=== PATIENT | female | born 1955 | race African-American/Black ===

== ENCOUNTER 2017-03-20 07:15 | Inpatient (IN) | payer BC ==
[2017-03-20] MEDS ORDERED: NORMAL SALINE 1000 ML 1,000 ML IV ONE (08:02)
[2017-03-20] MEDS ORDERED: ONDANSETRON HCL INJ/PF 4 MG/2 ML SDV IV ONE ×2 (08:03→13:21)
[2017-03-20] MEDS ORDERED: KETOROLAC TROMETHAMINE INJ/PF 30 MG/1 ML SDV IV ONE ×2 (08:03→13:20)
--- NOTE | 2017-03-20 08:04 | ER Document Report ---
ED General - General Chief Complaint: Vomiting Stated Complaint: VOMITING Time Seen by Provider: 03/20/17 07:34 Mode of Arrival: Ambulatory Information source: Patient Notes: Patient presents emergency department with complaints of abdominal pain since last night. Reports started after she ate. She reports she has been vomiting since 9:00 last night. Denies fever diarrhea. Reports severe epigastric abdominal pain. She reports she feels severely bloated. Reports last bowel movement was yesterday normal. Patient is constantly burping. Denies history of this abdominal pain. Has hx of appy/lorraine, DM. TRAVEL OUTSIDE OF THE [place] IN LAST 30 DAYS: No COUNTRY TRAVELED TO/FROM: [facility] Onset: Yesterday Onset/Duration: Sudden, Persistent Quality of pain: Fullness, Sharp Severity: Severe Pain Level: 5 Associated symptoms: Nausea, Vomiting, Other - burping Exacerbated by: Denies Relieved by: Denies Similar symptoms previously: No Recently seen / treated by doctor: No - Related Data Allergies/Adverse Reactions: Penicillins Adverse Reaction (Intermediate, Verified 03/20/17 07:16) rash Past Medical History - General Information source: Patient - Social History Smoking Status: Never Smoker Frequency of alcohol use: None Drug Abuse: None Family History: Reviewed & Not Pertinent Patient has suicidal ideation: No Patient has homicidal ideation: No - Past Medical History Cardiac Medical History: Reports: Hx Hypertension Denies: Hx Coronary Artery Disease, Hx Heart Attack Pulmonary Medical History: Denies: Hx Asthma, Hx Bronchitis, Hx COPD, Hx Pneumonia Neurological Medical History: Denies: Hx Cerebrovascular Accident, Hx Seizures Endocrine Medical History: Reports: Hx Diabetes Mellitus Type 2 Renal/ Medical History: Denies: Hx Peritoneal Dialysis Musculoskeltal Medical History: Denies Hx Arthritis Past Surgical History: Reports: Hx Appendectomy, Hx Cholecystectomy, Hx Hysterectomy. Denies: Hx Pacemaker - Immunizations Hx Diphtheria, Pertussis, Tetanus Vaccination: Yes Hx Pneumococcal Vaccination: 08/29/14 Physical Exam - Vital signs Vitals: Temp Pulse Resp BP Pulse Ox 98.6 F 77 19 178/74 H 96 03/20/17 07:25 03/20/17 07:25 03/20/17 07:25 03/20/17 07:25 03/20/17 07:25 Course - Re-evaluation Re-evalutation: 03/20/17 09:10 Feeling better, reports abdominal pain decreased, no further vomiting, burping decreased 03/20/17 10:10 Before contacting the surgeon , I consulted dr munoz regarding sm bowel obstruction. She agrees with consult. I consulted dr barboza regarding sm. bowel obstruction. He is requesting a CT with oral contrast in 3 hours. He declined NGT at this time. I did discuss this with Dr. George. I called Dr. barboza back again asking him to come see the patient. He declines, he did speak with Dr. Munoz and again asked for a small CT with oral contrast before he will come and see the patient. Patient was instructed on this further exam. Patient is comfortable reports abdominal pain is tolerable no further vomiting. Pt checked on frequently while waiting for oral contrast. Treated with zofran and 15mg of toradol for pain, reports relief of pain after this. 03/20/17 14:24 CT with oral contrast completed notes still having small bowel obstruction. Dr. Barboza notified and reports he will be over see the patient. - Vital Signs Vital signs: Temp Pulse Resp BP Pulse Ox 98.6 F 78 18 187/93 H 96 03/20/17 16:12 03/20/17 16:12 03/20/17 11:53 03/20/17 16:12 03/20/17 16:12 - Laboratory Result Diagrams: 03/20/17 08:29 03/20/17 08:29 Laboratory results interpreted by me: 03/20/17 03/20/17 03/20/17 08:29 08:29 08:35 WBC 13.9 H RBC 5.46 H MCV 75 L MCH 24.0 L RDW 16.7 H Seg Neutrophils % 86.1 H Lymphocytes % 8.2 L Absolute Neutrophils 11.9 H Potassium 3.3 L Glucose 202 H Urine Protein 100 H Urine Urobilinogen 4.0 H - Diagnostic Test Radiology reviewed: Image reviewed, Reports reviewed - EXAM DESCRIPTION: CT ABD/ PELVIS WITH IV ONLY COMPLETED DATE/TIME: 03/20/2017 9:25 am REASON FOR STUDY : abd pain COMPARISON: None. TECHNIQUE: CT scan of the abdomen and pelvis performed using helical scanning technique with dynamic intravenous contrast injection. No oral contrast. Images reviewed with lung, soft tissue, and bone windows. Reconstructed coronal and sagittal MPR images reviewed. Delayed images for evaluation of the urinary system also acquired. All images stored on PACS. All CT scanners at this facility use dose modulation, iterative reconstruction , and/or weight based dosing when appropriate to reduce radiation dose to as low as reasonably achievable (ALARA). [facility]: Dose Right [facility]: CareDose [facility]: Dose Right [facility]: Teradose 4D [facility]: [employer] [place] CONTRAST TYPE AND DOSE: contrast/concentration: Isovue 370.00 mg/ml; Total Contrast Delivered: 100.0 ml ; Total Saline Delivered: 72.1 ml RENAL FUNCTION: GFR > 60. RADIATION DOSE: CT Rad equipment meets quality standard of care and radiation dose reduction techniques were employed. CTDIvol: 20.5 - 21.1 mGy. DLP: 2283 mGy-cm.. LIMITATIONS: None. FINDINGS: LOWER CHEST: No significant findings. No nodules or infiltrates. LIVER: Normal size. No masses. No dilated ducts. Trace perihepatic ascites. SPLEEN: Normal size. No focal lesions. PANCREAS: No masses. No significant calcifications. No adjacent inflammation or peripancreatic fluid collections. Pancreatic duct not dilated. GALLBLADDER: Surgically absent. ADRENAL GLANDS: No significant masses or asymmetry. RIGHT KIDNEY AND URETER: Subcentimeter simple cyst. No solid masses. No significant calcifications. No hydronephrosis or hydroureter. LEFT KIDNEY AND URETER: No solid masses. No significant calcifications. No hydronephrosis or hydroureter. AORTA AND VESSELS: Scattered atherosclerotic calcifications. No aneurysm. No dissection. Renal arteries, SMA, celiac without stenosis. RETROPERITONEUM: No retroperitoneal adenopathy, hemorrhage or masses. BOWEL AND PERITONEAL CAVITY: Fluid distended loops of small bowel measuring up to 2.6 cm with transition point in the right lower quadrant series 3, image 66 compatible with distal small bowel obstruction. Loops of bowel distal this point are decompressed. No pneumatosis or free air. APPENDIX: Surgically absent. PELVIS: No mass. No free fluid. Normal bladder. ABDOMINAL WALL: No masses. No hernias. BONES: Degenerative change without fracture or suspicious osseous lesion. OTHER: No other significant finding. IMPRESSION: CT FINDINGS COMPATIBLE WITH DISTAL SMALL BOWEL OBSTRUCTION WITH TRANSITION POINT IN THE RIGHT LOWER QUADRANT. NO PNEUMATOSIS OR FREE AIR. - Consults david Time consulted: 10:10 - request oral contrast CT Reason for consultation: 03/20/17 10:22 small bowel obstruction Discharge - Discharge Clinical Impression: Small bowel obstruction Vomiting Qualifiers: Vomiting type: unspecified Vomiting Intractability: non-intractable Nausea presence: unspecified Qualified Code(s): R11.10 - Vomiting, unspecified Abdominal pain Qualifiers: Abdominal location: epigastric Qualified Code(s): R10.13 - Epigastric pain Condition: Stable
[2017-03-20 08:47] LABS: APPEARANCE,URINE SLIGHTLY-CLOUDY; BILIRUBIN,URINE NEGATIVE (NEGATIVE); COLOR,URINE YELLOW; GLUCOSE, URINE NEGATIVE (NEGATIVE); KETONES,URINE NEGATIVE (NEGATIVE); LEUKOCYTE ESTERASE,URINE NEGATIVE (NEGATIVE); NITRITE,URINE NEGATIVE (NEGATIVE); PROTEIN,URINE 100 mg/dL (NEGATIVE); URINE SPECIFIC GRAVITY 1.015
[2017-03-20 08:50] LABS: ABSOLUTE BASOPHILS # (AUTO) 0.1 10^3/uL (0.0-0.2); ABSOLUTE EOSINOPHILS # (AUTO) 0.2 10^3/uL (0.0-0.6); ABSOLUTE LYMPHOCYTES (AUTO) 1.1 10^3/uL (0.5-4.7); ABSOLUTE MONOCYTES (AUTO) 0.5 10^3/uL (0.1-1.4); ABSOLUTE NEUT (AUTO) 11.9 10^3/uL (1.7-8.2); BASOPHILS % (AUTO) 0.8 % (0-2); EOSINOPHILS % (AUTO) 1.1 % (0-6); HEMATOCRIT 40.7 % (36.0-47.0); HEMOGLOBIN 13.1 g/dL (12.0-15.5); LYMPHOCYTES % (AUTO) 8.2 % (13-45); MEAN CORPUSCULAR HGB CONC 32.2 g/dL (32.0-36.0); MEAN CORPUSCULAR VOLUME 75 fl (80-97); MONOCYTES % (AUTO) 3.8 % (3-13); PLATELET COUNT 375 10^3/uL (150-450); RED BLOOD COUNT 5.46 10^6/uL (3.72-5.28); RED CELL DISTRIBUTION WIDTH 16.7 % (11.5-14.0); SEGMENTED NEUTROPHILS % (AUTO) 86.1 % (42-78); TOTAL CELLS COUNTED % (AUTO) 100 %; WHITE BLOOD COUNT 13.9 10^3/uL (4.0-10.5)
[2017-03-20 08:55] LABS: ALANINE AMINOTRANSFERASE 29 U/L (9-52); ALBUMIN 4.1 g/dL (3.5-5.0); ALKALINE PHOSPHATASE 89 U/L (38-126); ANION GAP 9 (5-19); ASPARTATE AMINO TRANSFERASE 24 U/L (14-36); BILIRUBIN,DIRECT 0.4 mg/dL (0.0-0.4); BILIRUBIN,TOTAL 0.5 mg/dL (0.2-1.3); BLOOD UREA NITROGEN 12 mg/dL (7-20); CALCIUM 9.8 mg/dL (8.4-10.2); CARBON DIOXIDE 30 mmol/L (22-30); CHLORIDE 103 mmol/L (98-107); GLUCOSE 202 mg/dL (75-110); LIPASE 66.9 U/L (23-300); POTASSIUM 3.3 mmol/L (3.6-5.0); SODIUM 141.9 mmol/L (137-145); TOTAL PROTEIN 7.6 g/dL (6.3-8.2)
--- NOTE | 2017-03-20 09:33 | RADIOLOGY REPORT (SQ) ---
EXAM DESCRIPTION: CT ABD/PELVIS WITH IV ONLY COMPLETED DATE/TIME: 03/20/2017 9:25 am REASON FOR STUDY: abd pain COMPARISON: None. TECHNIQUE: CT scan of the abdomen and pelvis performed using helical scanning technique with dynamic intravenous contrast injection. No oral contrast. Images reviewed with lung, soft tissue, and bone windows. Reconstructed coronal and sagittal MPR images reviewed. Delayed images for evaluation of the urinary system also acquired. All images stored on PACS. All CT scanners at this facility use dose modulation, iterative reconstruction, and/or weight based d osing when appropriate to reduce radiation dose to as low as reasonably achievable (ALARA). [facility]: Dose Right [facility]: CareDose [facility]: Dose Right [facility]: Teradose 4D [facility]: [employer] CONTRAST TYPE AND DOSE: contrast/concentration: Isovue 370.00 mg/ml; Total Contrast Delivered: 100.0 ml; Total Saline Delivered: 72.1 ml RENAL FUNCTION: GFR > 60. RADIATION DOSE: CT Rad equipment meets quality standard of care and radiation dose reduction techniq ues were employed. CTDIvol: 20.5 - 21.1 mGy. DLP: 2283 mGy-cm.. LIMITATIONS: None. FINDINGS: LOWER CHEST: No significant findings. No nodules or infiltrates. LIVER: Normal size. No masses. No dilated ducts. Trace perihepatic ascites. SPLEEN: Normal size. No focal lesions. PANCREAS: No masses. No significant calcifications. No adjacent inflammation or peripancreatic fluid collections. Pancreatic duct not dilated. GALLBLADDER: Surgically absent. ADRENAL GLANDS: No significant masses or asymmetry. RIGHT KIDNEY AND URETER: Subcentimeter simple cyst. No solid masses. No significant calcifications . No hydronephrosis or hydroureter. LEFT KIDNEY AND URETER: No solid masses. No significant calcifications. No hydronephrosis or hydr oureter. AORTA AND VESSELS: Scattered atherosclerotic calcifications. No aneurysm. No dissection. Renal arter ies, SMA, celiac without stenosis. RETROPERITONEUM: No retroperitoneal adenopathy, hemorrhage or masses. BOWEL AND PERITONEAL CAVITY: Fluid distended loops of small bowel measuring up to 2.6 cm with transit ion point in the right lower quadrant series 3, image 66 compatible with distal small bowel obstructi on. Loops of bowel distal this point are decompressed. No pneumatosis or free air. APPENDIX: Surgically absent. PELVIS: No mass. No free fluid. Normal bladder. ABDOMINAL WALL: No masses. No hernias. BONES: Degenerative change without fracture or suspicious osseous lesion. OTHER: No other significant finding. IMPRESSION: CT FINDINGS COMPATIBLE WITH DISTAL SMALL BOWEL OBSTRUCTION WITH TRANSITION POINT IN THE RIGHT LOWER QUADRANT. NO PNEUMATOSIS OR FREE AIR. TECHNICAL DOCUMENTATION: JOB ID: [id number] Quality ID # [id number]: Final reports with documentation of one or more dose reduction techniques (e.g., Au tomated exposure control, adjustment of the mA and/or kV according to patient size, use of iterative reconstruction technique) 2010 [employer] All Rights Reserved
--- NOTE | 2017-03-20 10:26 | EKG REPORT ---
SEVERITY:- ABNORMAL ECG - SINUS RHYTHM PROBABLE LVH WITH SECONDARY REPOL ABNRM BORDERLINE PROLONGED QT INTERVAL : Confirmed by: Mabel Preciado 20-Mar-2017 10:25:35
--- NOTE | 2017-03-20 11:52 | PDOC CONSULTATION ---
Consultation Consult Date: 03/20/17 Consult reason:: abdominal pain History of Present Illness Admission Date/PCP: LORENZO BLANC MD History of Present Illness: EDDA SIMPSON is a 62 year old female with a 24 hrs c/o abdominal bloating , nausea, pain in the mid-upper abdomen. She presented to the ER with these symptoms and a CT scan A/P has been done w/o oral contrast and demonstrates a possible small bowel obstruction. Currently, she is reporting passing flatus. Past Medical History Cardiac Medical History: Reports: Hypertension Denies: Coronary Artery Disease, Myocardial Infarction Pulmonary Medical History: Denies: Asthma, Bronchitis, Chronic Obstructive Pulmonary Disease (COPD), Pneumonia Neurological Medical History: Denies: Seizures Endocrine Medical History: Reports: Diabetes Mellitus Type 2 Musculoskeltal Medical History: Denies: Arthritis Hematology: Reports: Anemia - PERNICIOUS ANEMIA Past Surgical History Past Surgical History: Reports: Appendectomy, Cholecystectomy, Hysterectomy Denies: Pacemaker Social History Smoking Status: Never Smoker Family History Family History: Reviewed & Not Pertinent, Other - diabetes, HTN Parental Family History Reviewed: Yes - diabetes, obesity Children Family History Reviewed: Unknown Sibling(s) Family History Reviewed.: Unknown Medication/Allergy Home Medications: Amlodipine Besylate [Norvasc 5 mg Tablet] 5 mg PO DAILY 01/02/14 Benazepril HCl [Lotensin] 12.5 mg PO DAILY 01/02/14 Atorvastatin Calcium 1 tab PO DAILY 11/28/15 Sitagliptin Phos/Metformin HCl [Janumet Xr 100-1,000 mg Tablet] 1 tab PO BID Aspirin [Ecotrin] 81 mg PO DAILY 12/06/15 Cyanocobalamin (Vitamin B-12) [Vitamin B-12 Inj 1000 Mcg/1 ml Vial] 1,000 mcg IM ASDIR PRN 12/09/15 Allergies/Adverse Reactions: Penicillins Adverse Reaction (Intermediate, Verified 03/20/17 07:16) rash Physical Exam Vital Signs: Temp Pulse Resp BP Pulse Ox 98.6 F 77 19 178/74 H 96 03/20/17 07:25 03/20/17 07:25 03/20/17 07:25 03/20/17 07:25 03/20/17 07:25 Intake & Output 03/19/17 03/20/17 03/21/17 06:59 06:59 06:59 Weight 107 kg General appearance: PRESENT: no acute distress Neck exam: PRESENT: full ROM Respiratory exam: PRESENT: clear to auscultation jovani Cardiovascular exam: PRESENT: RRR GI/Abdominal exam: PRESENT: distended - slightly, normal bowel sounds, tenderness - in the mid-upper abdomen Results Laboratory Results: 03/20/17 08:29 03/20/17 08:29 03/20/17 03/20/17 03/20/17 08:29 08:29 08:35 WBC 13.9 H RBC 5.46 H Hgb 13.1 Hct 40.7 MCV 75 L MCH 24.0 L MCHC 32.2 RDW 16.7 H Plt Count 375 Seg Neutrophils % 86.1 H Lymphocytes % 8.2 L Monocytes % 3.8 Eosinophils % 1.1 Basophils % 0.8 Absolute Neutrophils 11.9 H Absolute Lymphocytes 1.1 Absolute Monocytes 0.5 Absolute Eosinophils 0.2 Absolute Basophils 0.1 Sodium 141.9 Potassium 3.3 L Chloride 103 Carbon Dioxide 30 Anion Gap 9 BUN 12 Creatinine 0.67 Est GFR ( Amer) > 60 Est GFR (Non-Af Amer) > 60 Glucose 202 H Calcium 9.8 Total Bilirubin 0.5 AST 24 ALT 29 Alkaline Phosphatase 89 Total Protein 7.6 Albumin 4.1 Lipase 66.9 Urine Color YELLOW Urine Appearance SLIGHTLY-CLOUDY Urine pH 6.0 Ur Specific [place] 1.015 Urine Protein 100 H Urine Glucose (UA) NEGATIVE Urine Ketones NEGATIVE Urine Blood NEGATIVE Urine Nitrite NEGATIVE Ur Leukocyte Esterase NEGATIVE Urine WBC (Auto) 1 Urine RBC (Auto) 0 Impressions: Abdomen/Pelvis CT 03/20/17 08:03 IMPRESSION: CT FINDINGS COMPATIBLE WITH DISTAL SMALL BOWEL OBSTRUCTION WITH TRANSITION POINT IN THE RIGHT LOWER QUADRANT. NO PNEUMATOSIS OR FREE AIR. Assessment & Plan - Diagnosis (1) Abdominal pain Qualifiers: Abdominal location: epigastric Qualified Code(s): R10.13 - Epigastric pain Is this a current diagnosis for this admission?: Yes - Plan Summary Plan Summary: A/ P.E. shows a slightly distended abdomen with no peritonitis and tenderness in the epigastrium Patient presents with flatus CT scan A/P w/o oral contrast shows some distention of small bowel loops and ir in colon to rectum At this point, based on the above findings it is not clear whether the patient has SBO P/ obtain CT scan A/P with oral contrast to r/o small bowel obstruction prior to make and additional therapeutic or diagnostic decisions
--- NOTE | 2017-03-20 14:07 | RADIOLOGY REPORT (SQ) ---
EXAM DESCRIPTION: CT ABD/PELVIS ORAL ONLY COMPLETED DATE/TIME: 03/20/2017 1:40 pm REASON FOR STUDY: vomiting, further eval of small bowel obstruction COMPARISON: 03/20/2017 TECHNIQUE: CT scan of the abdomen and pelvis performed with oral contrast and no intravenous contras t. Images reviewed with lung, soft tissue, and bone windows. Reconstructed coronal and sagittal MPR i mages reviewed. All images stored on PACS. All CT scanners at this facility use dose modulation, iterative reconstruction, and/or weight based d osing when appropriate to reduce radiation dose to as low as reasonably achievable (ALARA). [facility]: Dose Right [facility]: CareDose [facility]: Dose Right [facility]: Teradose 4D [facility]: [employer] RADIATION DOSE: CT Rad equipment meets quality standard of care and radiation dose reduction techniq ues were employed. CTDIvol: 20.1 mGy. DLP: 1105 mGy-cm. mGy. LIMITATIONS: None. FINDINGS: LOWER CHEST: No significant findings. No nodules or infiltrates. NON-CONTRASTED LIVER, SPLEEN, ADRENALS: Evaluation limited by lack of IV contrast. No identified sign ificant masses. Stable trace perihepatic ascites. PANCREAS: No masses. No peripancreatic inflammatory changes. GALLBLADDER: Surgically absent. RIGHT KIDNEY AND URETER: Stable cyst. No suspicious masses. Assessment limited by lack of IV contras t. Contrast within the renal collecting system from prior CT. No hydronephrosis or hydroureter. LEFT KIDNEY AND URETER: No suspicious masses. Assessment limited by lack of IV contrast. Contrast w ithin the renal collecting system from prior CT. No hydronephrosis or hydroureter. AORTA AND RETROPERITONEUM: No aneurysm. No retroperitoneal masses or adenopathy. BOWEL AND PERITONEAL CAVITY: Oral contrast is now present within the stomach and proximal to mid smal l bowel. Unchanged appearance of distal small bowel obstruction. APPENDIX: Surgically absent. PELVIS, BLADDER, AND ABDOMINAL WALL: No abnormal pelvic masses. No abdominal wall hernias. Contrast within the bladder. BONES: No significant findings. OTHER: No other significant finding. IMPRESSION: NO SIGNIFICANT CHANGE FROM STUDY PERFORMED EARLIER TODAY INCLUDING DISTAL SMALL BOWEL OB STRUCTION. TECHNICAL DOCUMENTATION: JOB ID: [id number] Quality ID # [id number]: Final reports with documentation of one or more dose reduction techniques (e.g., Au tomated exposure control, adjustment of the mA and/or kV according to patient size, use of iterative reconstruction technique) 2010 [employer]- All Rights Reserved
[2017-03-20] MEDS ORDERED: NORMAL SALINE 1000 ML 1,000 ML IV PRN ×2 (14:53)
[2017-03-20] MEDS ORDERED: ONDANSETRON HCL INJ/PF 4 MG/2 ML SDV IV PRN (14:53)
[2017-03-20] MEDS ORDERED: METOPROLOL TARTRATE PF/INJ 5 MG/5 ML SDV IV ONE (15:30)
[2017-03-20] MEDS ORDERED: PROMETHAZINE HCL INJ 25 MG/1 ML VIAL ONE (17:27)
[2017-03-20] MEDS: PROMETHAZINE HCL INJ 25 MG/1 ML VIAL IV PRN (17:44)
[2017-03-20] MEDS: FAMOTIDINE INJ/PF 20 MG/2 ML SDV IV SCH (19:05)
[2017-03-20] MEDS: MORPHINE SULFATE 10 MG/ML INJ IV PRN (22:17)
--- NOTE | 2017-03-20 22:22 | EKG REPORT ---
SEVERITY:- ABNORMAL ECG - SINUS RHYTHM CONSIDER LEFT VENTRICULAR HYPERTROPHY : Confirmed by: Mabel Preciado 20-Mar-2017 22:21:05
--- NOTE | 2017-03-20 22:54 | RADIOLOGY REPORT (SQ) ---
EXAM DESCRIPTION: KUB/ABDOMEN (SINGLE VIEW) COMPLETED DATE/TIME: 03/20/2017 8:30 pm REASON FOR STUDY: Check Placement of NG Tube COMPARISON: CT abdomen 03/20/2017 NUMBER OF VIEWS: One view. TECHNIQUE: Supine radiographic image of the abdomen acquired. LIMITATIONS: None. FINDINGS: BOWEL GAS PATTERN: Re- demonstration of multiple loops of dilated small bowel, similar to that seen on comparison CT. CALCIFICATIONS: No suspicious calcifications. SOFT TISSUES: No gross mass or suggestion of organomegaly. HARDWARE: Interval placement of the an enteric tube with the proximal port projecting at the level of the gastroesophageal junction. Surgical clips are seen within the right upper quadrant and right lo wer quadrant. BONES: No acute fracture. No worrisome bone lesions. OTHER: No other significant finding. IMPRESSION: 1. Persistent appearance of dilated loops of small bowel. No free air. 2. Interval placement of an enteric tube with the proximal port projecting at the level of the gastr oesophageal junction; recommend advancing 8 to 10 cm. TECHNICAL DOCUMENTATION: JOB ID: [id number] [employer]- All Rights Reserved
[2017-03-21] MEDS: PROMETHAZINE HCL INJ 25 MG/1 ML VIAL IV PRN ×2 (00:01→05:58)
[2017-03-21 05:06] LABS: ABSOLUTE BASOPHILS # (AUTO) 0.1 10^3/uL (0.0-0.2); ABSOLUTE EOSINOPHILS # (AUTO) 0.1 10^3/uL (0.0-0.6); ABSOLUTE LYMPHOCYTES (AUTO) 1.4 10^3/uL (0.5-4.7); ABSOLUTE MONOCYTES (AUTO) 0.6 10^3/uL (0.1-1.4); ABSOLUTE NEUT (AUTO) 9.6 10^3/uL (1.7-8.2); BASOPHILS % (AUTO) 0.5 % (0-2); EOSINOPHILS % (AUTO) 0.6 % (0-6); HEMATOCRIT 38.6 % (36.0-47.0); HEMOGLOBIN 12.3 g/dL (12.0-15.5); LYMPHOCYTES % (AUTO) 12.1 % (13-45); MEAN CORPUSCULAR HEMOGLOBIN 23.7 pg (27.0-33.4); MEAN CORPUSCULAR HGB CONC 31.9 g/dL (32.0-36.0); MEAN CORPUSCULAR VOLUME 74 fl (80-97); MONOCYTES % (AUTO) 5.4 % (3-13); PLATELET COUNT 340 10^3/uL (150-450); RED CELL DISTRIBUTION WIDTH 16.5 % (11.5-14.0); SEGMENTED NEUTROPHILS % (AUTO) 81.4 % (42-78); TOTAL CELLS COUNTED % (AUTO) 100 %; WHITE BLOOD COUNT 11.8 10^3/uL (4.0-10.5)
[2017-03-21 05:35] LABS: ANION GAP 9 (5-19); BLOOD UREA NITROGEN 9 mg/dL (7-20); CALCIUM 9.2 mg/dL (8.4-10.2); CARBON DIOXIDE 25 mmol/L (22-30); CHLORIDE 107 mmol/L (98-107); GLUCOSE 151 mg/dL (75-110); POTASSIUM 3.4 mmol/L (3.6-5.0); SODIUM 141.4 mmol/L (137-145)
[2017-03-21] MEDS: FAMOTIDINE INJ/PF 20 MG/2 ML SDV IV SCH ×2 (05:57→22:26)
--- NOTE | 2017-03-21 09:15 | RADIOLOGY REPORT (SQ) ---
EXAM DESCRIPTION: ACUTE ABDOMEN SERIES COMPLETED DATE/TIME: 03/21/2017 9:05 am REASON FOR STUDY: f/u small bowel obstruction COMPARISON: None. NUMBER OF VIEWS: Three views. TECHNIQUE: Frontal chest, supine abdomen and upright/decubitus abdomen radiographic images acquired. LIMITATIONS: None. FINDINGS: CHEST: Linear opacities right middle lobe lingula likely subsegmental atelectasis. No con solidation, pleural effusion, or pneumothorax. Heart size is stable. FREE AIR: None. No abnormal gas collections. BOWEL GAS PATTERN: Stable distended loops of bowel with air-fluid levels compatible with obstruction. CALCIFICATIONS: No suspicious calcifications. HARDWARE: Nasogastric tube somewhat high in position with side port at the level of the GE junction. Stable cholecystectomy clips. SOFT TISSUES: No gross mass or suggestion of organomegaly. BONES: No acute fracture. No worrisome bone lesions. OTHER: No other significant finding. IMPRESSION: STABLE RADIOGRAPHIC APPEARANCE CONSISTENT WITH DISTAL SMALL BOWEL OBSTRUCTION. NO FREE AIR. RECOMMEND ADVANCING NASOGASTRIC TUBE 2 TO 3 CM. TECHNICAL DOCUMENTATION: JOB ID: [id number] [employer]- All Rights Reserved
[2017-03-21] MEDS ORDERED: ENOXAPARIN SODIUM INJ 40 MG/0.4 ML DISP.SYRIN SUBCUT SCH (10:00)
[2017-03-21] MEDS: MORPHINE SULFATE 10 MG/ML INJ IV PRN ×2 (10:30→20:43)
--- NOTE | 2017-03-21 12:09 | PDOC PROGRESS REPORT ---
Subjective Progress Note for:: 03/21/17 Subjective:: c/o abdominal pain and obstipation, intense nausea Reason For Visit: SMALL BOWEL OBSTRUCTION Physical Exam Vital Signs: Temp Pulse Resp BP Pulse Ox 98.9 F 93 16 158/91 H 94 03/21/17 07:54 03/21/17 07:54 03/21/17 07:54 03/21/17 07:54 03/21/17 07:54 Intake & Output 03/20/17 03/21/17 03/22/17 06:59 06:59 06:59 Intake Total 375 Output Total 950 Balance -575 Weight 109.7 kg General appearance: PRESENT: mild distress Respiratory exam: PRESENT: clear to auscultation jovani Cardiovascular exam: PRESENT: RRR GI/Abdominal exam: PRESENT: distended, guarding, hypoactive bowel sounds, tenderness Results Laboratory Results: 03/21/17 04:52 03/21/17 04:52 03/21/17 03/21/17 04:52 04:52 WBC 11.8 H RBC 5.20 Hgb 12.3 Hct 38.6 MCV 74 L MCH 23.7 L MCHC 31.9 L RDW 16.5 H Plt Count 340 Seg Neutrophils % 81.4 H Lymphocytes % 12.1 L Monocytes % 5.4 Eosinophils % 0.6 Basophils % 0.5 Absolute Neutrophils 9.6 H Absolute Lymphocytes 1.4 Absolute Monocytes 0.6 Absolute Eosinophils 0.1 Absolute Basophils 0.1 Sodium 141.4 Potassium 3.4 L Chloride 107 Carbon Dioxide 25 Anion Gap 9 BUN 9 Creatinine 0.64 Est GFR ( Amer) > 60 Est GFR (Non-Af Amer) > 60 Glucose 151 H Calcium 9.2 Impressions: KUB X-Ray 03/20/17 00:00 IMPRESSION: 1. Persistent appearance of dilated loops of small bowel. No free air. 2. Interval placement of an enteric tube with the proximal port projecting at the level of the gastroesophageal junction; recommend advancing 8 to 10 cm. Abdomen/Pelvis CT 03/20/17 13:13 IMPRESSION: NO SIGNIFICANT CHANGE FROM STUDY PERFORMED EARLIER TODAY INCLUDING DISTAL SMALL BOWEL OBSTRUCTION. Acute Abdomen Series 03/21/17 05:00 IMPRESSION: STABLE RADIOGRAPHIC APPEARANCE CONSISTENT WITH DISTAL SMALL BOWEL OBSTRUCTION. NO FREE AIR. RECOMMEND ADVANCING NASOGASTRIC TUBE 2 TO 3 CM. Assessment & Plan - Diagnosis (1) Abdominal pain Qualifiers: Abdominal location: epigastric Qualified Code(s): R10.13 - Epigastric pain Is this a current diagnosis for this admission?: Yes (2) Small bowel obstruction Is this a current diagnosis for this admission?: Yes - Plan Summary Plan Summary: A/ Acute mechanical small luis alberto obstruction: repaeted obstructive series done today demonstrate small bowel dilatation and gasless colon Abdomen distended Increaed NGT ouput Hypokalemia P/ replace K Consent for laparotomy, lysis of adhesions, bowel resection, possible ostomy Procedure, risks, benefits, complications explained to the patient and , she understands all of them and decides to proceed
[2017-03-21] MEDS ORDERED: FENTANYL CITRATE INJ/PF 100 MCG/2 ML AMPUL ONE ×2 (12:42→12:43)
[2017-03-21] MEDS ORDERED: MIDAZOLAM 2 MG/2 ML INJ ONE (12:43)
[2017-03-21] MEDS ORDERED: ACETAMINOPHEN 100 ML IV ONE (12:43)
[2017-03-21] MEDS ORDERED: MORPHINE SULFATE 10 MG/ML INJ ONE (12:43)
[2017-03-21] MEDS ORDERED: PROPOFOL INJ 200 MG/20 ML VIAL IV ONE (12:43)
[2017-03-21] MEDS ORDERED: POTASSI CL 20 MEQ/50 ML RIDER 20 MEQ/50 ML RTUPB IV SCH ×2 (13:00→21:00)
[2017-03-21] MEDS ORDERED: BUPIVACAINE HCL 0.5%-EPI 1:200000 INJ/PF 30 ML VIAL ONE ×2 (13:38→14:53)
[2017-03-21] MEDS ORDERED: CEFOXITIN 1 GM/D5W RTU 2 GM/100 ML RTUPB IV ONE (13:48)
[2017-03-21] MEDS ORDERED: GLYCOPYRROLATE INJ 0.4 MG/2 ML VIAL ONE (13:52)
[2017-03-21] MEDS ORDERED: ROCURONIUM BROMIDE INJ 50 MG/5 ML VIAL IV ONE (13:52)
[2017-03-21] MEDS ORDERED: ONDANSETRON HCL INJ/PF 4 MG/2 ML SDV ONE (13:52)
[2017-03-21] MEDS ORDERED: PHENYLEPHRINE HCL INJ/PF 10 MG/1 ML SDV ONE (13:52)
[2017-03-21] MEDS ORDERED: NEOSTIGMINE METHYLSULFATE 10 MG/10 ML VIAL ONE (13:52)
[2017-03-21] MEDS ORDERED: SUCCINYLCHOLINE CHLORIDE INJ 200 MG/10 ML VIAL ONE (13:52)
[2017-03-21] MEDS ORDERED: DIPHENHYDRAMINE HCL 50 MG/ML VIAL IV PRN (13:57)
[2017-03-21] MEDS ORDERED: MEPERIDINE HCL/PF INJ 25 MG/1 ML DISP.SYRIN IV PRN (13:57)
[2017-03-21] MEDS ORDERED: ONDANSETRON HCL INJ/PF 4 MG/2 ML SDV IV PRN (13:57)
[2017-03-21] MEDS ORDERED: PROMETHAZINE HCL INJ 25 MG/1 ML VIAL IV PRN ×2 (13:57)
[2017-03-21] MEDS ORDERED: MORPHINE SULFATE 10 MG/ML INJ IV PRN (13:57)
[2017-03-21] MEDS ORDERED: FENTANYL CITRATE INJ/PF 100 MCG/2 ML AMPUL IV PRN ×3 (13:57)
--- NOTE | 2017-03-21 15:27 | Operative Report ---
Operative Report DATE OF SURGERY: 03/21/17 PREOPERATIVE DIAGNOSIS: mechanical small bowel obstruction POSTOPERATIVE DIAGNOSIS: same OPERATION: exploratory laparotomy, extended lysis of adhesions SURGEON: BEAN VAZQUEZ ANESTHESIA: GA - plus local 6- mL -5% marcaine with wpinephrine TISSUE REMOVED OR ALTERED: n/a COMPLICATIONS: None ESTIMATED BLOOD LOSS: 40 mL PROCEDURE: see dictation
[2017-03-21] MEDS ORDERED: SUGAMMADEX SODIUM 200 MG/2 ML SDV IV ONE (15:38)
[2017-03-21] MEDS ORDERED: NORMAL SALINE 1000 ML 1,000 ML IV PRN (15:44)
[2017-03-21] MEDS ORDERED: MORPHINE SULFATE 60 MG/60 ML RTUINJ IV PRN (16:10)
[2017-03-21] MEDS: CEFOXITIN 1 GM/D5W RTU 1 GM/50 ML RTUPB IV SCH (21:16)
[2017-03-22] MEDS: ENOXAPARIN SODIUM INJ 40 MG/0.4 ML DISP.SYRIN SUBCUT SCH (05:05)
[2017-03-22] MEDS: FAMOTIDINE INJ/PF 20 MG/2 ML SDV IV SCH ×2 (05:05→18:07)
[2017-03-22 06:20] LABS: HEMATOCRIT 36.9 % (36.0-47.0); HEMOGLOBIN 11.9 g/dL (12.0-15.5); MEAN CORPUSCULAR HEMOGLOBIN 24.3 pg (27.0-33.4); MEAN CORPUSCULAR HGB CONC 32.4 g/dL (32.0-36.0); MEAN CORPUSCULAR VOLUME 75 fl (80-97); PLATELET COUNT 301 10^3/uL (150-450); RED BLOOD COUNT 4.92 10^6/uL (3.72-5.28); RED CELL DISTRIBUTION WIDTH 16.4 % (11.5-14.0); WHITE BLOOD COUNT 5.9 10^3/uL (4.0-10.5)
[2017-03-22 06:42] LABS: ANION GAP 8 (5-19); BLOOD UREA NITROGEN 13 mg/dL (7-20); CALCIUM 7.9 mg/dL (8.4-10.2); CARBON DIOXIDE 25 mmol/L (22-30); CHLORIDE 111 mmol/L (98-107); GLUCOSE 154 mg/dL (75-110); POTASSIUM 3.3 mmol/L (3.6-5.0); SODIUM 143.6 mmol/L (137-145)
--- NOTE | 2017-03-22 09:40 | OPERATIVE REPORT E ---
Operative Report NAME: EDDA SIMPSON : 1955 AGE: 62Y DATE OF SURGERY: 03/21/2017 ROOM: 407 PREOPERATIVE DIAGNOSIS: Mechanical complete small bowel obstruction. POSTOPERATIVE DIAGNOSIS: Mechanical complete small bowel obstruction. OPERATION: 1. Exploratory laparotomy. 2. Extensive lysis of adhesions lasting 90 minutes. SURGEON: BEAN VAZQUEZ M.D. ANESTHESIA: General plus 60 mL of 0.5% Marcaine with epinephrine. IV FLUIDS: 1600. URINE OUTPUT: 150. DRAINS: None. INDICATIONS AND FINDINGS: This is an obese 62-year-old female with a history of abdominal pain, increased abdominal girth, nausea, vomiting, found to have a complete mechanical small bowel obstruction on CT scan with oral and IV contrast. The patient was admitted, given IV fluids, rehydrated, and she was scheduled for surgery today. Procedures, benefits and complications were explained to the patient. She understood and decided to proceed. PROCEDURE: It was done in the operating room. Patient was placed in supine position. General anesthesia induced by endotracheal intubation. Gallegos catheter was placed. Nasogastric tube was already in place. The abdomen was prepped and draped in the usual sterile fashion. A midline incision was made from just above the umbilicus down to the symphysis pubis along the old midline secondary to hysterectomy. The subcutaneous fat and linea alba were divided with Bovie. The cavity was entered without difficulty. A moderate amount of ascites was identified. This was light yellow in color and without odor and was aspirated. Following this, the small bowel was found to be diffusely distended and a loop of the collapsed small bowel was then identified as well. However, due to the amount of adhesions located in the right lower pelvis, a Bookwalter retractor was placed so to improve the visualization of the surgical field. The small bowel was then packed, stowed in the mid- upper abdomen, protected with laparotomy pads, and kept in position with a malleable retractor. At this point, the small bowel was then slowly ran and tenacious adhesions were identified between loops of terminal ileum in the right lower quadrant and the retroperitoneum. These adhesions were taken down painstakingly with the use of Bovie and a right angled dissector. After a painstaking dissection lasting about 90 minutes, the several loops of small bowel were finally freed and elevated off the pelvis. At this point, the small bowel was run twice in a distal to proximal fashion and up to the ligament of Treitz and again in a proximal to distal fashion from the ligament of Treitz down to ileocecal valve. No area of bowel injury was identified. One area of deserosalization of the small bowel wall was identified and repaired with Lembert interrupted 2-0 silk sutures. Following this, the small bowel was then replaced within the peritoneal cavity. This was irrigated with 2 liters of warm normal saline which was fully aspirated. The linea alba was closed with running #1 looped PDS suture. The subcutaneous tissue and fascia were infiltrated with 40 mL of 0.5% Marcaine with epinephrine. The skin was closed with misty. Sterile dressing, tape and a binder were then applied. The patient tolerated the procedure well, extubated, transferred to recovery room in satisfactory conditions. DICTATING PHYSICIAN: BEAN VAZQUEZ M.D. [id number] PHY#: [id number] ID: [id number] JOB#: [id number] ACCT: [id number] cc:BEAN VAZQUEZ M.D. > MTDD
[2017-03-22] MEDS: CEFOXITIN 1 GM/D5W RTU 1 GM/50 ML RTUPB IV SCH ×2 (10:32→22:35)
--- NOTE | 2017-03-22 10:37 | PDOC PROGRESS REPORT ---
Subjective Reason For Visit: SMALL BOWEL OBSTRUCTION Patient is one day status post exploratory laparotomy, lysis of adhesions; no immediate postoperative complications. Uneventful overnight. Physical Exam Vital Signs: Temp Pulse Resp BP Pulse Ox 99.2 F 104 H 17 176/76 H 99 03/22/17 07:37 03/22/17 07:37 03/22/17 07:37 03/22/17 07:37 03/22/17 07:37 Intake & Output 03/21/17 03/22/17 03/23/17 06:59 06:59 06:59 Intake Total 375 5350 Output Total 950 4090 Balance -575 1260 Weight 109.7 kg 109.7 kg General appearance: PRESENT: no acute distress, other - Nasogastric tube in place; drain 1700 cc by record; urine output adequate. Awake alert communicative. Coughing capacity poor. Head exam: PRESENT: atraumatic GI/Abdominal exam: PRESENT: other - Nasogastric tube drainage ileus. The abdomen is soft appropriately tender dressing intact; no drain Results Laboratory Results: 03/22/17 05:17 03/22/17 05:17 03/21/17 03/22/17 03/22/17 13:33 05:17 05:17 WBC 5.9 RBC 4.92 Hgb 11.9 L Hct 36.9 MCV 75 L MCH 24.3 L MCHC 32.4 RDW 16.4 H Plt Count 301 Sodium 143.6 Potassium 3.3 L Chloride 111 H Carbon Dioxide 25 Anion Gap 8 BUN 13 Creatinine 0.75 Est GFR ( Amer) > 60 Est GFR (Non-Af Amer) > 60 Glucose 154 H Calcium 7.9 L Blood Type AB POSITIVE Antibody Screen NEGATIVE Impressions: KUB X-Ray 03/20/17 00:00 IMPRESSION: 1. Persistent appearance of dilated loops of small bowel. No free air. 2. Interval placement of an enteric tube with the proximal port projecting at the level of the gastroesophageal junction; recommend advancing 8 to 10 cm. Abdomen/Pelvis CT 03/20/17 13:13 IMPRESSION: NO SIGNIFICANT CHANGE FROM STUDY PERFORMED EARLIER TODAY INCLUDING DISTAL SMALL BOWEL OBSTRUCTION. Acute Abdomen Series 03/21/17 05:00 IMPRESSION: STABLE RADIOGRAPHIC APPEARANCE CONSISTENT WITH DISTAL SMALL BOWEL OBSTRUCTION. NO FREE AIR. RECOMMEND ADVANCING NASOGASTRIC TUBE 2 TO 3 CM. Assessment & Plan - Diagnosis (1) Small bowel obstruction Is this a current diagnosis for this admission?: Yes Plan: Patient is one day status post exploratory laparotomy, lysis of adhesions. Doing well no immediate postoperative complications. Recommendations: 1. We will replace potassium with IV riders. 2. We will get out of bed into chair; improve 3. Potentially discontinue Gallegos catheter this afternoon.
[2017-03-22] MEDS: POTASSI CL 20 MEQ/50 ML RIDER 20 MEQ/50 ML RTUPB IV SCH ×3 (12:30→18:07)
[2017-03-22] MEDS ORDERED: ACETAMINOPHEN 650 MG SUPP.RECT PR PRN (14:42)
[2017-03-22] MEDS ORDERED: INSULIN LISPRO 100 UNIT/ML 3 ML VIAL SUBCUT PRN (14:59)
[2017-03-22] MEDS ORDERED: DEXTROSE 50%-WATER 25 GM/50 ML DISP.SYRIN IV PRN ×2 (14:59)
[2017-03-22] MEDS ORDERED: DEXTROSE 40% GEL 15 GM TUBE PO PRN ×2 (14:59)
[2017-03-22] MEDS ORDERED: GLUCAGON,HUMAN RECOMB 1 MG INJ IM PRN (14:59)
[2017-03-22] MEDS ORDERED: HYDRALAZINE HCL INJ/PF 20 MG/1 ML SDV IV PRN (15:01)
--- NOTE | 2017-03-22 15:14 | PDOC CONSULTATION ---
Consultation Consult Date: 03/22/17 Attending physician:: ALYSSA JIMENEZ Consult reason:: Diabetes and hypertension management History of Present Illness Admission Date/PCP: 03/20/17 15:43 LORENZO BLANC MD Patient complains of: Abdominal pain History of Present Illness: 62-year-old female with history of hypertension and diabetes who presented with a small bowel obstruction. Patient has undergone exploratory laparotomy with lysis of adhesions. The surgeons have asked as to manage her hypertension and diabetes while she is n.p.o. Past Medical History Cardiac Medical History: Reports: Hypertension Denies: Coronary Artery Disease, Myocardial Infarction Pulmonary Medical History: Denies: Asthma, Bronchitis, Chronic Obstructive Pulmonary Disease (COPD), Pneumonia Neurological Medical History: Denies: Seizures Endocrine Medical History: Reports: Diabetes Mellitus Type 2 Renal/ Medical History: Reports: None Malignancy Medical History: Reports: None GI Medical History: Reports: Other - Gastric polyps Musculoskeltal Medical History: Denies: Arthritis Psychiatric Medical History: Denies: Depression Hematology: Reports: Anemia - PERNICIOUS ANEMIA Infectious Medical History: Reports: None Past Surgical History Past Surgical History: Reports: Appendectomy, Cholecystectomy, Hysterectomy Denies: Pacemaker Social History Information Source: Patient Lives with: Family Smoking Status: Never Smoker Frequency of Alcohol Use: None Hx Recreational Drug Use: No Drugs: None Hx Prescription Drug Abuse: No - Advance Directive Resuscitation Status: Full Code Family History Family History: Mother at age 73 and had no chronic health problems. Father in his 80s with coronary artery disease. Parental Family History Reviewed: Yes Children Family History Reviewed: No Sibling(s) Family History Reviewed.: No Medication/Allergy Home Medications: Amlodipine Besylate [Norvasc 5 mg Tablet] 5 mg PO DAILY 03/20/17 Benazepril/Hydrochlorothiazide [Benazepril-Hctz 20-12.5 mg Tab] 1 each PO DAILY 03/20/17 Metoprolol Succinate [Toprol Xl 50 mg Tab.sr] 50 mg PO QPM 03/20/17 Saxagliptin HCl/Metformin HCl [Kombiglyze Xr 2.5-1,000 mg Tab] 1 each PO Q12 Allergies/Adverse Reactions: Penicillins Adverse Reaction (Intermediate, Verified 03/20/17 07:16) rash Review of Systems Constitutional: ABSENT: chills, fever(s), headache(s), weight gain, weight loss Eyes: ABSENT: visual disturbances Ears: ABSENT: hearing changes Cardiovascular: ABSENT: chest pain, dyspnea on exertion, edema, orthropnea, palpitations Respiratory: ABSENT: cough, hemoptysis Gastrointestinal: PRESENT: abdominal pain Genitourinary: ABSENT: dysuria, hematuria Musculoskeletal: ABSENT: joint swelling Integumentary: ABSENT: rash, wounds Neurological: ABSENT: abnormal gait, abnormal speech, confusion, dizziness, focal weakness, syncope Psychiatric: ABSENT: depression Endocrine: ABSENT: cold intolerance, heat intolerance, polydipsia, polyuria Physical Exam Vital Signs: Temp Pulse Resp BP Pulse Ox 98.6 F 102 H 17 168/78 H 97 03/22/17 11:26 03/22/17 11:26 03/22/17 11:26 03/22/17 11:26 03/22/17 11:26 Intake & Output 03/21/17 03/22/17 03/23/17 06:59 06:59 06:59 Intake Total 375 5350 Output Total 950 4090 Balance -575 1260 Weight 109.7 kg 109.7 kg 109.7 kg General appearance: PRESENT: no acute distress Head exam: PRESENT: atraumatic, normocephalic Eye exam: PRESENT: conjunctiva pink, EOMI, PERRLA. ABSENT: scleral icterus Mouth exam: PRESENT: moist, tongue midline Neck exam: ABSENT: JVD Respiratory exam: PRESENT: clear to auscultation jovani. ABSENT: rales, rhonchi, wheezes Cardiovascular exam: PRESENT: RRR. ABSENT: diastolic murmur, rubs, systolic murmur GI/Abdominal exam: PRESENT: soft, other - Surgical dressing in place.. ABSENT: distended, guarding, mass, normal bowel sounds, organolmegaly, rebound, tenderness Extremities exam: ABSENT: calf tenderness, clubbing, pedal edema Neurological exam: PRESENT: alert, awake, oriented to person, oriented to place , oriented to time, oriented to situation, CN II-XII grossly intact. ABSENT: motor sensory deficit Psychiatric exam: PRESENT: appropriate affect Skin exam: PRESENT: dry, intact, warm. ABSENT: cyanosis, rash Results Laboratory Results: 03/22/17 05:17 03/22/17 05:17 03/22/17 03/22/17 05:17 05:17 WBC 5.9 RBC 4.92 Hgb 11.9 L Hct 36.9 MCV 75 L MCH 24.3 L MCHC 32.4 RDW 16.4 H Plt Count 301 Sodium 143.6 Potassium 3.3 L Chloride 111 H Carbon Dioxide 25 Anion Gap 8 BUN 13 Creatinine 0.75 Est GFR ( Amer) > 60 Est GFR (Non-Af Amer) > 60 Glucose 154 H Calcium 7.9 L Impressions: KUB X-Ray 03/20/17 00:00 IMPRESSION: 1. Persistent appearance of dilated loops of small bowel. No free air. 2. Interval placement of an enteric tube with the proximal port projecting at the level of the gastroesophageal junction; recommend advancing 8 to 10 cm. Abdomen/Pelvis CT 03/20/17 13:13 IMPRESSION: NO SIGNIFICANT CHANGE FROM STUDY PERFORMED EARLIER TODAY INCLUDING DISTAL SMALL BOWEL OBSTRUCTION. Acute Abdomen Series 03/21/17 05:00 IMPRESSION: STABLE RADIOGRAPHIC APPEARANCE CONSISTENT WITH DISTAL SMALL BOWEL OBSTRUCTION. NO FREE AIR. RECOMMEND ADVANCING NASOGASTRIC TUBE 2 TO 3 CM. Assessment & Plan - Diagnosis (1) Hypertension Is this a current diagnosis for this admission?: Yes Plan: We will give as needed IV hydralazine. She consistently has elevated blood pressures we could start a clonidine patch however we will just try as needed hydralazine. (2) Diabetes mellitus Is this a current diagnosis for this admission?: Yes Plan: We will cover with sliding scale insulin while n.p.o. (3) Small bowel obstruction Is this a current diagnosis for this admission?: Yes Plan: Status post surgical correction. - Time Time Spent: 30 to 50 Minutes - Plan Summary Plan Summary: Hospital service will follow along with you.
[2017-03-22 19:10] LABS: APPEARANCE,URINE SLIGHTLY-CLOUDY; BILIRUBIN,URINE NEGATIVE (NEGATIVE); COLOR,URINE YELLOW; GLUCOSE, URINE 50 mg/dL (NEGATIVE); KETONES,URINE TRACE mg/dL (NEGATIVE); LEUKOCYTE ESTERASE,URINE TRACE (NEGATIVE); NITRITE,URINE NEGATIVE (NEGATIVE); PROTEIN,URINE 30 mg/dL (NEGATIVE); URINE SPECIFIC GRAVITY 1.016; UROBILINOGEN,URINE NEGATIVE mg/dL (<2.0)
[2017-03-23 05:01] LABS: ABSOLUTE EOSINOPHILS # (AUTO) 0.1 10^3/uL (0.0-0.6); ABSOLUTE LYMPHOCYTES (AUTO) 0.9 10^3/uL (0.5-4.7); ABSOLUTE NEUT (AUTO) 6.8 10^3/uL (1.7-8.2); BASOPHILS % (AUTO) 0.2 % (0-2); HEMATOCRIT 34.3 % (36.0-47.0); HEMOGLOBIN 11.1 g/dL (12.0-15.5); LYMPHOCYTES % (AUTO) 9.9 % (13-45); MEAN CORPUSCULAR HEMOGLOBIN 24.3 pg (27.0-33.4); MEAN CORPUSCULAR HGB CONC 32.4 g/dL (32.0-36.0); MEAN CORPUSCULAR VOLUME 75 fl (80-97); MONOCYTES % (AUTO) 10.9 % (3-13); PLATELET COUNT 276 10^3/uL (150-450); RED BLOOD COUNT 4.57 10^6/uL (3.72-5.28); RED CELL DISTRIBUTION WIDTH 16.9 % (11.5-14.0); TOTAL CELLS COUNTED % (AUTO) 100 %; WHITE BLOOD COUNT 8.7 10^3/uL (4.0-10.5)
[2017-03-23 05:18] LABS: ANION GAP 9 (5-19); BLOOD UREA NITROGEN 13 mg/dL (7-20); CALCIUM 8.6 mg/dL (8.4-10.2); CARBON DIOXIDE 26 mmol/L (22-30); CHLORIDE 113 mmol/L (98-107); GLUCOSE 139 mg/dL (75-110); POTASSIUM 3.7 mmol/L (3.6-5.0); SODIUM 147.5 mmol/L (137-145)
[2017-03-23] MEDS: ENOXAPARIN SODIUM INJ 40 MG/0.4 ML DISP.SYRIN SUBCUT SCH (06:16)
[2017-03-23] MEDS: FAMOTIDINE INJ/PF 20 MG/2 ML SDV IV SCH ×2 (06:16→20:34)
[2017-03-23] MEDS ORDERED: PHENOL/SODIUM PHENOLATE 100 SPRAY/177 ML BOTTLE PO PRN (06:42)
[2017-03-23] MEDS ORDERED: HYDRALAZINE HCL INJ/PF 20 MG/1 ML SDV IV PRN (08:50)
--- NOTE | 2017-03-23 10:45 | PDOC PROGRESS REPORT ---
Subjective Progress Note for:: 03/23/17 Reason For Visit: patient is comfortable, denies flatus Physical Exam Vital Signs: Temp Pulse Resp BP Pulse Ox 97.6 F 109 H 17 192/80 H 100 03/23/17 07:46 03/23/17 07:46 03/23/17 07:46 03/23/17 07:46 03/23/17 07:46 Intake & Output 03/22/17 03/23/17 03/24/17 06:59 06:59 06:59 Intake Total 5350 4177 Output Total 4090 1500 Balance 1260 2677 Weight 109.7 kg 115.5 kg General appearance: PRESENT: no acute distress, cooperative Respiratory exam: PRESENT: clear to auscultation jovani Cardiovascular exam: PRESENT: RRR GI/Abdominal exam: PRESENT: hypoactive bowel sounds, soft, other - incision c/d/ i Results Laboratory Results: 03/23/17 04:26 03/23/17 04:26 03/22/17 03/23/17 03/23/17 18:36 04:26 04:26 WBC 8.7 RBC 4.57 Hgb 11.1 L Hct 34.3 L MCV 75 L MCH 24.3 L MCHC 32.4 RDW 16.9 H Plt Count 276 Seg Neutrophils % 78.0 Lymphocytes % 9.9 L Monocytes % 10.9 Eosinophils % 1.0 Basophils % 0.2 Absolute Neutrophils 6.8 Absolute Lymphocytes 0.9 Absolute Monocytes 1.0 Absolute Eosinophils 0.1 Absolute Basophils 0.0 Sodium 147.5 H Potassium 3.7 Chloride 113 H Carbon Dioxide 26 Anion Gap 9 BUN 13 Creatinine 0.71 Est GFR ( Amer) > 60 Est GFR (Non-Af Amer) > 60 Glucose 139 H Calcium 8.6 Urine Color YELLOW Urine Appearance SLIGHTLY-CLOUDY Urine pH 5.0 Ur Specific [place] 1.016 Urine Protein 30 H Urine Glucose (UA) 50 H Urine Ketones TRACE H Urine Blood SMALL H Urine Nitrite NEGATIVE Ur Leukocyte Esterase TRACE H Urine WBC (Auto) 8 Urine RBC (Auto) 9 Impressions: KUB X-Ray 03/20/17 00:00 IMPRESSION: 1. Persistent appearance of dilated loops of small bowel. No free air. 2. Interval placement of an enteric tube with the proximal port projecting at the level of the gastroesophageal junction; recommend advancing 8 to 10 cm. Abdomen/Pelvis CT 03/20/17 13:13 IMPRESSION: NO SIGNIFICANT CHANGE FROM STUDY PERFORMED EARLIER TODAY INCLUDING DISTAL SMALL BOWEL OBSTRUCTION. Acute Abdomen Series 03/21/17 05:00 IMPRESSION: STABLE RADIOGRAPHIC APPEARANCE CONSISTENT WITH DISTAL SMALL BOWEL OBSTRUCTION. NO FREE AIR. RECOMMEND ADVANCING NASOGASTRIC TUBE 2 TO 3 CM. Assessment & Plan - Diagnosis (1) Abdominal pain Qualifiers: Abdominal location: epigastric Qualified Code(s): R10.13 - Epigastric pain Is this a current diagnosis for this admission?: Yes (2) Small bowel obstruction Is this a current diagnosis for this admission?: Yes - Plan Summary Plan Summary: A/ POD #2 s/p exploratory laparotomy, KAM VSS, AF good urine output large NGT output most likely secondary to ice chips ingestion blood work within normal limits, Na slightly elevated 147 No bowel sounds on PE P/ Continue NPO/NGT Stop ice chips Continue IVF Dulcolax suppository to stimulate the intestine Ambulation IS as ordered
[2017-03-23] MEDS: CEFOXITIN 1 GM/D5W RTU 1 GM/50 ML RTUPB IV SCH (10:52)
[2017-03-23] MEDS: METOPROLOL TARTRATE PF/INJ 5 MG/5 ML SDV IV SCH ×2 (11:15→21:18)
[2017-03-23] MEDS ORDERED: HYDRALAZINE HCL INJ/PF 20 MG/1 ML SDV IV ONE ×2 (13:30→13:45)
[2017-03-23] MEDS: BISACODYL 10 MG SUPP.RECT PR SCH (20:35)
[2017-03-24 05:31] LABS: HEMATOCRIT 34.7 % (36.0-47.0); MEAN CORPUSCULAR HEMOGLOBIN 23.6 pg (27.0-33.4); MEAN CORPUSCULAR HGB CONC 31.7 g/dL (32.0-36.0); MEAN CORPUSCULAR VOLUME 75 fl (80-97); PLATELET COUNT 319 10^3/uL (150-450); RED BLOOD COUNT 4.65 10^6/uL (3.72-5.28); RED CELL DISTRIBUTION WIDTH 16.6 % (11.5-14.0); WHITE BLOOD COUNT 11.8 10^3/uL (4.0-10.5)
[2017-03-24] MEDS: FAMOTIDINE INJ/PF 20 MG/2 ML SDV IV SCH (05:47)
[2017-03-24] MEDS: ENOXAPARIN SODIUM INJ 40 MG/0.4 ML DISP.SYRIN SUBCUT SCH (05:47)
[2017-03-24 06:02] LABS: ANION GAP 12 (5-19); BLOOD UREA NITROGEN 7 mg/dL (7-20); CALCIUM 8.8 mg/dL (8.4-10.2); CARBON DIOXIDE 21 mmol/L (22-30); CHLORIDE 110 mmol/L (98-107); GLUCOSE 161 mg/dL (75-110); POTASSIUM 3.4 mmol/L (3.6-5.0); SODIUM 143.3 mmol/L (137-145)
[2017-03-24] MEDS: HYDROCHLOROTHIAZIDE 12.5 MG CAPSULE PO SCH (09:07)
[2017-03-24] MEDS: BISACODYL 10 MG SUPP.RECT PR SCH ×2 (09:11→13:22)
[2017-03-24] MEDS ORDERED: AMLODIPINE BESYLATE 5 MG TABLET PO SCH ×2 (10:00→12:53)
[2017-03-24] MEDS ORDERED: BENAZEPRIL HCL 20 MG TABLET PO SCH (10:00)
[2017-03-24] MEDS: PROMETHAZINE HCL INJ 25 MG/1 ML VIAL IV PRN ×2 (12:18→19:01)
[2017-03-24] MEDS ORDERED: ACETAMINOPHEN 325 MG SUPP.RECT PR PRN (12:50)
[2017-03-24] MEDS ORDERED: AMLODIPINE BESYLATE 5 MG TABLET PO ONE ×2 (12:53→14:00)
[2017-03-24] MEDS ORDERED: NORMAL SALINE 1000 ML 1,000 ML IV PRN ×2 (12:54→13:21)
--- NOTE | 2017-03-24 13:08 | PDOC PROGRESS REPORT ---
Subjective Progress Note for:: 03/24/17 Subjective:: Nauseated, has had a BM last evening and this morning Reason For Visit: SMALL BOWEL OBSTRUCTION Physical Exam Vital Signs: Temp Pulse Resp BP Pulse Ox 98.4 F 111 H 19 172/81 H 98 03/24/17 11:51 03/24/17 11:51 03/24/17 11:51 03/24/17 11:51 03/24/17 11:51 Intake & Output 03/23/17 03/24/17 03/25/17 06:59 06:59 06:59 Intake Total 4177 2040 Output Total 1500 600 Balance 2677 1440 Weight 115.5 kg 117.5 kg Respiratory exam: PRESENT: clear to auscultation jovani Cardiovascular exam: PRESENT: RRR GI/Abdominal exam: PRESENT: distended, soft Results Laboratory Results: 03/24/17 04:40 03/24/17 04:40 03/24/17 03/24/17 04:40 04:40 WBC 11.8 H RBC 4.65 Hgb 11.0 L Hct 34.7 L MCV 75 L MCH 23.6 L MCHC 31.7 L RDW 16.6 H Plt Count 319 Sodium 143.3 Potassium 3.4 L Chloride 110 H Carbon Dioxide 21 L Anion Gap 12 BUN 7 Creatinine 0.62 Est GFR ( Amer) > 60 Est GFR (Non-Af Amer) > 60 Glucose 161 H Calcium 8.8 Impressions: KUB X-Ray 03/20/17 00:00 IMPRESSION: 1. Persistent appearance of dilated loops of small bowel. No free air. 2. Interval placement of an enteric tube with the proximal port projecting at the level of the gastroesophageal junction; recommend advancing 8 to 10 cm. Abdomen/Pelvis CT 03/20/17 13:13 IMPRESSION: NO SIGNIFICANT CHANGE FROM STUDY PERFORMED EARLIER TODAY INCLUDING DISTAL SMALL BOWEL OBSTRUCTION. Acute Abdomen Series 03/21/17 05:00 IMPRESSION: STABLE RADIOGRAPHIC APPEARANCE CONSISTENT WITH DISTAL SMALL BOWEL OBSTRUCTION. NO FREE AIR. RECOMMEND ADVANCING NASOGASTRIC TUBE 2 TO 3 CM. Assessment & Plan - Diagnosis (1) Abdominal pain Qualifiers: Abdominal location: epigastric Qualified Code(s): R10.13 - Epigastric pain Is this a current diagnosis for this admission?: Yes (2) Small bowel obstruction Is this a current diagnosis for this admission?: Yes - Plan Summary Plan Summary: A/ POD #3 after expl. laaprotomy KAM patient had one bowel movement last evening and this morning Nausea this afternoon with bloating Blood work within normal limits Abdomen obese, soft Severe HTN: BPS > 190; most likely her symptoms are due to rebound hyertension P/ stop narcotics Tramadol/Tylenol for pain Decrease IVF 75 mL/hr Hospitalist notified: will reevaluate the patient BP meds Advance diet to clear if patient improves this afternoon Dulcolax suppository now
[2017-03-24] MEDS ORDERED: POTASSIUM CHLORIDE 10 MEQ TABLET.SA PO ONE (13:30)
[2017-03-24] MEDS ORDERED: FUROSEMIDE INJ/PF 20 MG/2 ML SDV IV ONE (13:30)
[2017-03-24] MEDS ORDERED: METOPROLOL TARTRATE 25 MG TABLET PO ONE (14:00)
--- NOTE | 2017-03-24 14:09 | PROGRESS NOTE E ---
Progress Note NAME: EDDA SIMPSON : 1955 AGE: 62Y DATE: 03/24/2017 ROOM: 407 SUBJECTIVE: The patient is lying in bed. She states that she feels miserable today. She describes her legs as feeling tight as well as her abdomen. The patient denies any shortness of breath, dizziness, or chest pain. No fevers or chills. The patient has been afebrile. Her blood pressure has been in good range and the patient has not voiced any other concerns at this time. REVIEW OF SYSTEMS: The rest of the review of systems is negative. MEDICATIONS: Medications have been reviewed. OBJECTIVE: GENERAL: The patient is a well-developed, well-nourished, 62-year-old, -[place] female who is awake, alert and oriented to person, place, time, and situation. She is verbal, conversational, does not appear to be in any acute distress. VITAL SIGNS: As follows: Temperature is 98.4, pulse 111, respirations 19, blood pressure 172/81, oxygen saturation 98% on room air. SKIN: Warm and dry. No rash. She is not diaphoretic. HEENT: Pupils equal, round, and reactive to light and accommodation. Conjunctivae pink. There is no evidence of JVP. CARDIOVASCULAR SYSTEM: Heart is regular. There is no murmur or rub. CHEST: Clear, symmetrical, unlabored. ABDOMEN: Firm with hypoactive bowel sounds. EXTREMITIES: No clubbing or cyanosis. Trace bilateral lower extremity edema. PSYCHIATRIC: The patient does appear somewhat anxious. DIAGNOSTICS: Lab values are as follows: Hematology obtained on 03/24/2017: WBCs 11.8, hemoglobin 11.0, hematocrit 34.7, platelet count 319,000. Chemistry obtained on 03/24/2017: Sodium 143, potassium 3.4, chloride 110, carbon dioxide 21, BUN 7, creatinine 0.62, glucose 162, calcium 8.8. IMPRESSION AND PLAN: 1. Hypertensive urgency. Will resume the patient's home medication now that she is starting p.o. and continue to supplement hydralazine as needed and follow. 2. Diabetes mellitus, type 2. Continue sliding-scale coverage. 3. Small bowel obstruction, status post surgical correction. 4. Hypokalemia. Will replete this. DISPOSITION: The patient is a FULL CODE. Depending on patient's symptomatology and diagnostic findings, we will reevaluate in the a.m. TIME SPENT: On this followup including assessment, plan, physical examination, patient education, review of records, specialty collaborations, was 25 minutes. DICTATING PHYSICIAN: FARRAH TIM NP [id number] PHY#: [id number] ID: [id number] JOB#: [id number] ACCT: [id number] cc: >
[2017-03-24] MEDS: KETOROLAC TROMETHAMINE INJ/PF 30 MG/1 ML SDV IV PRN (14:37)
[2017-03-24] MEDS: SODIUM CHLORIDE NASAL SPRAY 44 ML NASL PRN ×2 (19:01→23:41)
[2017-03-24] MEDS: FAMOTIDINE 20 MG TABLET PO SCH (21:25)
[2017-03-24] MEDS: BENAZEPRIL HCL 20 MG TABLET PO SCH (21:26)
[2017-03-24] MEDS: METOPROLOL SUCCINATE 50 MG TAB.SR.24H PO SCH (21:26)
[2017-03-24] MEDS: ONDANSETRON HCL INJ/PF 4 MG/2 ML SDV IV PRN (23:40)
[2017-03-25] MEDS: PROMETHAZINE HCL INJ 25 MG/1 ML VIAL IV PRN ×3 (01:52→21:39)
[2017-03-25] MEDS: ENOXAPARIN SODIUM INJ 40 MG/0.4 ML DISP.SYRIN SUBCUT SCH (05:29)
[2017-03-25 07:37] LABS: ABSOLUTE EOSINOPHILS # (AUTO) 0.2 10^3/uL (0.0-0.6); ABSOLUTE LYMPHOCYTES (AUTO) 0.9 10^3/uL (0.5-4.7); ABSOLUTE MONOCYTES (AUTO) 0.8 10^3/uL (0.1-1.4); BASOPHILS % (AUTO) 0.5 % (0-2); HEMATOCRIT 34.9 % (36.0-47.0); HEMOGLOBIN 11.5 g/dL (12.0-15.5); LYMPHOCYTES % (AUTO) 10.1 % (13-45); MEAN CORPUSCULAR HEMOGLOBIN 24.3 pg (27.0-33.4); MEAN CORPUSCULAR HGB CONC 33.1 g/dL (32.0-36.0); MEAN CORPUSCULAR VOLUME 73 fl (80-97); MONOCYTES % (AUTO) 8.5 % (3-13); PLATELET COUNT 341 10^3/uL (150-450); RED BLOOD COUNT 4.75 10^6/uL (3.72-5.28); RED CELL DISTRIBUTION WIDTH 16.4 % (11.5-14.0); SEGMENTED NEUTROPHILS % (AUTO) 78.9 % (42-78); TOTAL CELLS COUNTED % (AUTO) 100 %; WHITE BLOOD COUNT 8.8 10^3/uL (4.0-10.5)
[2017-03-25] MEDS: KETOROLAC TROMETHAMINE INJ/PF 30 MG/1 ML SDV IV PRN (09:09)
[2017-03-25] MEDS: FAMOTIDINE 20 MG TABLET PO SCH ×2 (09:38→21:38)
[2017-03-25] MEDS: BENAZEPRIL HCL 20 MG TABLET PO SCH ×2 (09:38→21:37)
[2017-03-25] MEDS: HYDROCHLOROTHIAZIDE 12.5 MG CAPSULE PO SCH (09:38)
[2017-03-25] MEDS: AMLODIPINE BESYLATE 10 MG TABLET PO SCH (09:38)
[2017-03-25] MEDS: BISACODYL 10 MG SUPP.RECT PR SCH (09:39)
[2017-03-25 09:45] LABS: ANION GAP 10 (5-19); BLOOD UREA NITROGEN 8 mg/dL (7-20); CALCIUM 8.8 mg/dL (8.4-10.2); CARBON DIOXIDE 25 mmol/L (22-30); CHLORIDE 107 mmol/L (98-107); GLUCOSE 162 mg/dL (75-110); POTASSIUM 3.4 mmol/L (3.6-5.0)
--- NOTE | 2017-03-25 14:04 | PROGRESS NOTE E ---
Progress Note NAME: EDDA SIMPSON : 1955 AGE: 62Y DATE: ROOM: 407 SUBJECTIVE: The patient is currently lying in bed. She states that she does feel better today than she did yesterday. The patient has tolerated her clear liquids without issue. The patient states that she does have a long history of hypertension. I have looked in the computer and it dates back to 2011. The patient states when she is in the hospital her blood pressure runs very high, a combination of white coat syndrome as well as pain. The patient denies any nausea, vomiting, or diarrhea. No shortness of breath, dizziness, or chest pain. No fever or chills. The patient has been afebrile. Blood pressures have been in a good range. The patient does not voice any other concerns at this time. REVIEW OF SYSTEMS: Rest of the review of systems negative. MEDICATIONS: Have been reviewed. OBJECTIVE: GENERAL: The patient is a 62-year-old -[place]i female who is awake, alert, and oriented to person, place, time, and situation. She is verbal, conversational, and does not appear to be in any acute distress. VITAL SIGNS: Temperature is 97.3, pulse 99, respirations 18, blood pressure 174/83, oxygen saturation is 95% on room air. SKIN: Warm and dry. No rash. She is not diaphoretic. HEENT: Pupils equal, round, and reactive to light and accommodation. Conjunctivae pink. There is no evidence of JVP. CARDIOVASCULAR SYSTEM: Heart is regular. There is no murmur or rub. CHEST: Clear, symmetrical, unlabored. ABDOMEN: Postsurgical bowel sounds are present. EXTREMITIES: No clubbing, cyanosis, or edema. PSYCHIATRIC: Appropriate affect. Pleasant mood. DIAGNOSTICS: Lab values are as follows: Hematology obtained on 03/25/2017: WBCs are 8.8, hemoglobin is 11.5, hematocrit is 34.9, platelet count is 341,000. Chemistry obtained on 03/25/2017: Sodium 142, potassium 3.4, chloride 107, carbon dioxide 25, BUN 8, creatinine 0.52, glucose 160, calcium 8.8. IMPRESSION AND PLAN: 1. HYPERTENSIVE URGENCY. The patient's home blood pressure appears to run systolically in the 160s. Have gone as far back as 2011 and have found not a blood pressure that is less than 150 systolically. Will continue the patient's home medications. Have also started hydralazine in an effort to get this better controlled and follow. 2. DIABETES MELLITUS TYPE 2. Continue sliding scale coverage. 3. SMALL BOWEL OBSTRUCTION, STATUS POST SURGICAL CORRECTION. The patient is tolerating her clears and overall is much improved. 4. HYPOKALEMIA. Will replete this. DISPOSITION: The patient is a FULL CODE. Pending patient's symptomatology and diagnostic findings, will reevaluate in the a.m. Time spent on this followup including assessment, plan, physical examination, patient education, review of records, and specialty collaboration is 25 minutes. DICTATING PHYSICIAN: FARRAH TIM NP [id number] PHY#: [id number] ID: [id number] JOB#: [id number] ACCT: [id number] cc: >
[2017-03-25] MEDS: HYDRALAZINE HCL 50 MG TABLET PO SCH ×2 (17:18→21:37)
--- NOTE | 2017-03-25 19:27 | PDOC PROGRESS REPORT ---
Subjective Progress Note for:: 03/25/17 Subjective:: Patient is feeling much better today and wants clear liquid diet Reason For Visit: SMALL BOWEL OBSTRUCTION Physical Exam Vital Signs: Temp Pulse Resp BP Pulse Ox 98.8 F 111 H 20 194/89 H 100 03/25/17 16:00 03/25/17 16:00 03/25/17 16:00 03/25/17 16:00 03/25/17 16:00 Intake & Output 03/24/17 03/25/17 03/26/17 06:59 06:59 06:59 Intake Total 2040 1310 120 Output Total 600 800 Balance 1440 510 120 Weight 117.5 kg 116.2 kg General appearance: PRESENT: no acute distress Respiratory exam: PRESENT: clear to auscultation jovani, unlabored Cardiovascular exam: PRESENT: RRR GI/Abdominal exam: PRESENT: normal bowel sounds, soft. ABSENT: distended, guarding, hernia, tenderness Results Laboratory Results: 03/25/17 06:30 03/25/17 09:20 03/25/17 03/25/17 03/25/17 06:30 06:30 09:20 WBC 8.8 RBC 4.75 Hgb 11.5 L Hct 34.9 L MCV 73 L MCH 24.3 L MCHC 33.1 RDW 16.4 H Plt Count 341 Seg Neutrophils % 78.9 H Lymphocytes % 10.1 L Monocytes % 8.5 Eosinophils % 2.0 Basophils % 0.5 Absolute Neutrophils 7.0 Absolute Lymphocytes 0.9 Absolute Monocytes 0.8 Absolute Eosinophils 0.2 Absolute Basophils 0.0 Sodium Cancelled 142.0 Potassium Cancelled 3.4 L Chloride Cancelled 107 Carbon Dioxide Cancelled 25 Anion Gap Cancelled 10 BUN Cancelled 8 Creatinine Cancelled 0.52 Est GFR ( Amer) Cancelled > 60 Est GFR (Non-Af Amer) Cancelled > 60 Glucose Cancelled 162 H Calcium Cancelled 8.8 Impressions: KUB X-Ray 03/20/17 00:00 IMPRESSION: 1. Persistent appearance of dilated loops of small bowel. No free air. 2. Interval placement of an enteric tube with the proximal port projecting at the level of the gastroesophageal junction; recommend advancing 8 to 10 cm. Abdomen/Pelvis CT 03/20/17 13:13 IMPRESSION: NO SIGNIFICANT CHANGE FROM STUDY PERFORMED EARLIER TODAY INCLUDING DISTAL SMALL BOWEL OBSTRUCTION. Acute Abdomen Series 03/21/17 05:00 IMPRESSION: STABLE RADIOGRAPHIC APPEARANCE CONSISTENT WITH DISTAL SMALL BOWEL OBSTRUCTION. NO FREE AIR. RECOMMEND ADVANCING NASOGASTRIC TUBE 2 TO 3 CM. Assessment & Plan - Diagnosis (1) Small bowel obstruction Is this a current diagnosis for this admission?: Yes - Plan Summary Plan Summary: Start patient on clear liquid diet, and advance to regular diet ad mally.
[2017-03-25] MEDS: METOPROLOL SUCCINATE 50 MG TAB.SR.24H PO SCH (21:38)
[2017-03-26] MEDS: HYDRALAZINE HCL 50 MG TABLET PO SCH ×3 (05:26→21:45)
[2017-03-26] MEDS: ENOXAPARIN SODIUM INJ 40 MG/0.4 ML DISP.SYRIN SUBCUT SCH (05:26)
[2017-03-26 06:55] LABS: ANION GAP 10 (5-19); BLOOD UREA NITROGEN 7 mg/dL (7-20); CALCIUM 8.7 mg/dL (8.4-10.2); CARBON DIOXIDE 24 mmol/L (22-30); CHLORIDE 107 mmol/L (98-107); GLUCOSE 136 mg/dL (75-110); SODIUM 141.2 mmol/L (137-145)
[2017-03-26 07:02] LABS: POTASSIUM 2.8 mmol/L (3.6-5.0)
[2017-03-26] MEDS ORDERED: POTASSI CL 20 MEQ/50 ML RIDER 20 MEQ/50 ML RTUPB IV SCH (07:33)
[2017-03-26] MEDS: ONDANSETRON HCL INJ/PF 4 MG/2 ML SDV IV PRN (07:48)
[2017-03-26] MEDS: KETOROLAC TROMETHAMINE INJ/PF 30 MG/1 ML SDV IV PRN (07:55)
[2017-03-26] MEDS: HYDRALAZINE HCL INJ/PF 20 MG/1 ML SDV IV PRN (07:58)
[2017-03-26] MEDS: POTASSI CL 20 MEQ/50 ML RIDER 20 MEQ/50 ML RTUPB IV SCH ×2 (08:18→12:48)
[2017-03-26] MEDS ORDERED: ACETAMINOPHEN 325 MG TABLET PO PRN (11:14)
--- NOTE | 2017-03-26 11:45 | PROGRESS NOTE E ---
Progress Note NAME: EDDA SIMPSON : 1955 AGE: 62Y DATE: 03/26/2017 ROOM: 407 SUBJECTIVE: The patient is currently lying in bed. She states that she has had some intermittent nausea, does complain of ongoing belly pain. However, the patient has had belches and is able to pass gas. Additionally, the patient had a bowel movement yesterday. The patient's potassium a little low today. The patient has been afebrile. Her blood pressures remain significantly elevated, but again I have emphasized that the patient freely admits to severe white coat syndrome, and blood pressures dating back to 2011 have been unable to find one that has a systolic blood pressure of less than 150. REVIEW OF SYSTEMS: Rest of review of systems is negative. MEDICATIONS: Medications have been reviewed. OBJECTIVE: GENERAL: The patient is a 62-year-old -[place] female who is awake, alert and oriented to person, place, time and situation. She is verbal, conversational, does not appear to be in any acute distress. VITAL SIGNS FOLLOWS: Temperature is 98.7. Pulse 103. Respirations 18. Blood pressure is 188/86. Oxygen saturation 98% on room air. SKIN: Warm and dry. No rash. She is not diaphoretic. HEENT: Pupils equal, round and reactive to light and accommodation. Conjunctivae are pink. NECK: No evidence of JVP. CARDIOVASCULAR SYSTEM: Heart is regular. There is no murmur or rub. CHEST: Clear, symmetrical, unlabored. ABDOMEN: Postsurgical. No area of focal tenderness. Generally tender. Bowel sounds are present. EXTREMITIES: No clubbing, cyanosis, edema. PSYCHIATRIC: Appropriate affect. Pleasant mood. DIAGNOSTICS: Lab values are as follows. Hematology obtained on 03/25/2017: WBCs are 8.8; hemoglobin is 11.5; hematocrit is 34.9; platelet count is 341,000. Chemistry obtained on 03/26/2017: Sodium is 141, potassium 2.8, chloride is 107, carbon dioxide 24. BUN 7, creatinine is 0.49, glucose 136. Calcium is 8.7. IMPRESSION AND PLAN: 1. HYPOKALEMIA. This has been replaced by primary team. Do appreciate this. 2. HYPERTENSIVE URGENCY. The patient's home blood pressure appeared to run systolically in the 170s. I have gone back as far as 2011 and cannot find a blood pressure less than 150 systolically. That is the goal, 160 systolically. Will increase hydralazine and follow. 3. DIABETES MELLITUS TYPE 2. Will continue sliding-scale coverage. 4. SMALL BOWEL OBSTRUCTION STATUS POST SURGICAL CORRECTION. The patient is tolerating clears and overall is much improved. 5. ANXIETY. DISPOSITION: The patient is a FULL CODE. Pending patient's symptomatology and diagnostic findings, we will reevaluate in the a.m. TIME SPENT: Time spent on this followup including assessment, plan, physical examination, patient education, review of records, and specialty collaboration is 25 minutes. DICTATING PHYSICIAN: FARRAH TIM NP [id number] PHY#: [id number] ID: [id number] JOB#: [id number] ACCT: [id number] cc: >
[2017-03-26] MEDS: FAMOTIDINE 20 MG TABLET PO SCH ×2 (12:49→21:45)
[2017-03-26] MEDS: ONDANSETRON 4 MG TAB.RAPDIS PO PRN ×3 (12:49→21:38)
[2017-03-26] MEDS: AMLODIPINE BESYLATE 10 MG TABLET PO SCH (12:57)
[2017-03-26] MEDS: HYDROCHLOROTHIAZIDE 12.5 MG CAPSULE PO SCH (12:57)
[2017-03-26] MEDS: BENAZEPRIL HCL 20 MG TABLET PO SCH ×2 (12:57→21:45)
[2017-03-26] MEDS: HYDROCODONE/ACETAMINOPHEN 5-325 MG TABLET PO PRN ×2 (16:17→21:43)
[2017-03-26] MEDS: METOPROLOL SUCCINATE 50 MG TAB.SR.24H PO SCH (21:45)
[2017-03-27 01:08] LABS: ANION GAP 9 (5-19); BLOOD UREA NITROGEN 6 mg/dL (7-20); CALCIUM 8.9 mg/dL (8.4-10.2); CARBON DIOXIDE 26 mmol/L (22-30); CHLORIDE 106 mmol/L (98-107); GLUCOSE 151 mg/dL (75-110); SODIUM 140.8 mmol/L (137-145)
[2017-03-27 01:13] LABS: POTASSIUM 3.1 mmol/L (3.6-5.0)
--- NOTE | 2017-03-27 01:36 | PDOC PROGRESS REPORT ---
Subjective Progress Note for:: 03/27/17 Subjective:: Complains of gaseousness and abdominal distention Reason For Visit: SMALL BOWEL OBSTRUCTION Physical Exam Vital Signs: Temp Pulse Resp BP Pulse Ox 98.6 F 110 H 16 184/81 H 98 03/26/17 19:52 03/26/17 19:52 03/26/17 19:52 03/26/17 19:52 03/26/17 19:52 Intake & Output 03/25/17 03/26/17 03/27/17 06:59 06:59 06:59 Intake Total 3498 762 6891 Output Total 800 800 Balance 510 470 426 Weight 116.2 kg 117.1 kg General appearance: PRESENT: no acute distress Respiratory exam: PRESENT: clear to auscultation jovani Cardiovascular exam: PRESENT: RRR GI/Abdominal exam: PRESENT: distended, normal bowel sounds, soft. ABSENT: tenderness Results Laboratory Results: 03/25/17 06:30 03/27/17 00:45 03/26/17 03/27/17 05:45 00:45 Sodium 141.2 140.8 Potassium 2.8 L* 3.1 L Chloride 107 106 Carbon Dioxide 24 26 Anion Gap 10 9 BUN 7 6 L Creatinine 0.49 L 0.55 Est GFR ( Amer) > 60 > 60 Est GFR (Non-Af Amer) > 60 > 60 Glucose 136 H 151 H Calcium 8.7 8.9 Impressions: KUB X-Ray 03/20/17 00:00 IMPRESSION: 1. Persistent appearance of dilated loops of small bowel. No free air. 2. Interval placement of an enteric tube with the proximal port projecting at the level of the gastroesophageal junction; recommend advancing 8 to 10 cm. Abdomen/Pelvis CT 03/20/17 13:13 IMPRESSION: NO SIGNIFICANT CHANGE FROM STUDY PERFORMED EARLIER TODAY INCLUDING DISTAL SMALL BOWEL OBSTRUCTION. Acute Abdomen Series 03/21/17 05:00 IMPRESSION: STABLE RADIOGRAPHIC APPEARANCE CONSISTENT WITH DISTAL SMALL BOWEL OBSTRUCTION. NO FREE AIR. RECOMMEND ADVANCING NASOGASTRIC TUBE 2 TO 3 CM. Assessment & Plan - Diagnosis (1) Small bowel obstruction Is this a current diagnosis for this admission?: Yes - Plan Summary Plan Summary: Encouraged to get out of bed and walk more often. Hypokalemia is being corrected, which can cause ileus as well.
--- NOTE | 2017-03-27 03:48 | RADIOLOGY REPORT (SQ) ---
EXAM DESCRIPTION: ABDOMEN 2 VIEWS CLINICAL HISTORY: abdominal pain COMPARISON: None. FINDINGS: 2 views of the abdomen. Postoperative change. Dilated loops of small bowel identified with no definite free intraperitoneal air air. Minimal air identified in the colon. Differential air-fluid levels on upright film. Prior cholecystectomy. Mild bilateral hip joint space narrowing. Mild degenerative change of the spine. IMPRESSION: 1. Findings suggest small bowel obstruction. Postoperative ileus considered less likely due to differential air-fluid levels.
[2017-03-27] MEDS: ENOXAPARIN SODIUM INJ 40 MG/0.4 ML DISP.SYRIN SUBCUT SCH (06:08)
[2017-03-27] MEDS: POTASSI CL 20 MEQ/50 ML RIDER 20 MEQ/50 ML RTUPB IV SCH ×2 (06:08→06:54)
[2017-03-27] MEDS ORDERED: LORAZEPAM INJ 2 MG/1 ML VIAL IV ONE (06:45)
[2017-03-27] MEDS: HYDRALAZINE HCL 50 MG TABLET PO SCH (07:38)
[2017-03-27] MEDS ORDERED: PHARMACY COMMUNICATION ORDER MC NR (08:30)
[2017-03-27] MEDS ORDERED: ACETAMINOPHEN 325 MG TABLET NG PRN (09:00)
[2017-03-27] MEDS ORDERED: HYDROCODONE/ACETAMINOPHEN 5-325 MG TABLET NG PRN (09:00)
--- NOTE | 2017-03-27 09:06 | RADIOLOGY REPORT (SQ) ---
EXAM DESCRIPTION: KUB/ABDOMEN (SINGLE VIEW) COMPLETED DATE/TIME: 03/27/2017 8:35 am REASON FOR STUDY: NG tube placement COMPARISON: Abdominal series 03/27/2017, 03/21/2017. NUMBER OF VIEWS: One view. TECHNIQUE: 2 AP portable semi upright images of the chest/abdomen acquired. LIMITATIONS: None. FINDINGS: BOWEL GAS PATTERN: Persistent dilated small bowel loops. CALCIFICATIONS: No suspicious calcifications. SOFT TISSUES: No gross mass or suggestion of organomegaly. HARDWARE: Enteric tube courses along the midline and terminates in the left upper quadrant with the t ip at the expected location of the gastric fundus. Surgical clips are seen in the right upper quadra nt. Surgical misty are seen in the midline lower abdomen. BONES: Degenerative changes in the spine LUNGS: The heart is mildly enlarged. There is elevation of the right hemidiaphragm. Atelectatic ch anges are seen in the right perihilar region and left lung base. IMPRESSION: 1. Enteric tube with the tip in the expected location of the gastric fundus. 2. Persistent gaseous distension of small bowel loops, remains worrisome for distal obstruction. 3. Mild cardiomegaly. Atelectatic changes at the right perihilar region and left lung base. TECHNICAL DOCUMENTATION: JOB ID: [id number] [employer]- All Rights Reserved
[2017-03-27] MEDS ORDERED: AMLODIPINE BESYLATE 10 MG TABLET NG SCH (10:00)
[2017-03-27] MEDS ORDERED: HYDROCHLOROTHIAZIDE 12.5 MG CAPSULE NG SCH (10:00)
[2017-03-27] MEDS: FAMOTIDINE 20 MG TABLET NG SCH ×2 (10:48→23:41)
[2017-03-27] MEDS: BENAZEPRIL HCL 20 MG TABLET NG SCH ×2 (10:48→23:41)
[2017-03-27] MEDS: POTASSIUM CHLORIDE 20 MEQ/15 ML UDCUP NG SCH ×2 (10:48→23:41)
[2017-03-27] MEDS: HYDRALAZINE HCL 50 MG TABLET NG SCH ×2 (14:15→23:41)
[2017-03-27] MEDS ORDERED: ONDANSETRON 4 MG TAB.RAPDIS NG PRN (15:30)
--- NOTE | 2017-03-27 17:19 | PROGRESS NOTE E ---
Progress Note NAME: EDDA SIMPSON : 1955 AGE: 62Y DATE: 03/27/2017 ROOM: 407 SUBJECTIVE: The patient's blood pressures have remained elevated, but overall improved in comparison to yesterday. The patient has been afebrile. Her blood pressures have been in a good range. The patient did have difficulty with abdominal distention this morning and the patient's NG tube was replaced. OBJECTIVE: GENERAL: On examination the patient is a well-developed, well-nourished, 62-year-old -[place] female who is awake and alert, does not appear to be distressed. VITAL SIGNS: Temperature is 98.2, pulse 103, respirations 18, blood pressure is 170/86, oxygen saturation is 97% on room air. SKIN: Is not diaphoretic. HEENT: NG tube is in place. CHEST: Symmetrical, unlabored. EXTREMITIES: There is no edema. PSYCHIATRIC: The patient is slightly anxious. DIAGNOSTIC STUDIES: Lab values are as follows: Hematology obtained on 03/25/2017; WBC is 8.8, hemoglobin 11.5, hematocrit is 34.9, platelet count is 341,000. Chemistry obtained on 03/27/2017; sodium is 140, potassium 3.1, chloride is 106, carbon dioxide 26, BUN 6, creatinine is 0.55, glucose 151, calcium is 8.9. IMPRESSION AND PLAN: 1. HYPOKALEMIA. This was replaced by primary team. 2. HYPERTENSIVE URGENCY. The patient's home blood pressures appear to run systolically in the 170s. I have gone back in her chart as far as 2011 and cannot find a blood pressure less than 150 systolically. With that a systolic blood pressure of 150-170 is the goal. We will continue current dosing. 3. DIABETES MELLITUS TYPE 2. With insulin sliding scale coverage. 4. SMALL BOWEL OBSTRUCTION, STATUS POST SURGICAL CORRECTION. The patient appears to be tolerating clear liquids. Overall much improved. 5. ANXIETY. DISPOSITION: Depending on the patient's symptomatology and diagnostic findings will reevaluate as needed. TIME SPENT: On this, including specialty collaborations, 10 minutes. DICTATING PHYSICIAN: FARRAH TIM NP [id number] PHY#: [id number] ID: [id number] JOB#: [id number] ACCT: [id number] cc: > KIRSTIN
[2017-03-27] MEDS ORDERED: ENALAPRILAT DIHYDRATE INJ/PF 2.5 MG/2 ML SDV IV ONE (21:51)
[2017-03-27] MEDS ORDERED: METOPROLOL TARTRATE PF/INJ 5 MG/5 ML SDV IV ONE (21:53)
[2017-03-27] MEDS ORDERED: METOPROLOL TARTRATE 25 MG TABLET NG SCH (22:00)
[2017-03-28] MEDS: HYDRALAZINE HCL INJ/PF 20 MG/1 ML SDV IV PRN (04:36)
[2017-03-28] MEDS ORDERED: METOPROLOL TARTRATE PF/INJ 5 MG/5 ML SDV IV ONE ×2 (05:28→05:45)
[2017-03-28] MEDS: HYDRALAZINE HCL 50 MG TABLET NG SCH (07:22)
[2017-03-28] MEDS: ENOXAPARIN SODIUM INJ 40 MG/0.4 ML DISP.SYRIN SUBCUT SCH (07:25)
[2017-03-28] MEDS ORDERED: DILTIAZEM HCL/D5W 125 MG/125 ML RTUINJ IV PRN (09:28)
[2017-03-28] MEDS ORDERED: ACETAMINOPHEN 325 MG TABLET PO PRN (09:46)
[2017-03-28] MEDS ORDERED: HYDROCODONE/ACETAMINOPHEN 5-325 MG TABLET PO PRN (09:46)
[2017-03-28] MEDS ORDERED: METOPROLOL TARTRATE 50 MG TABLET ONE (09:51)
[2017-03-28 09:58] LABS: HEMATOCRIT 36.4 % (36.0-47.0); HEMOGLOBIN 11.8 g/dL (12.0-15.5); MEAN CORPUSCULAR HEMOGLOBIN 23.8 pg (27.0-33.4); MEAN CORPUSCULAR HGB CONC 32.5 g/dL (32.0-36.0); MEAN CORPUSCULAR VOLUME 73 fl (80-97); PLATELET COUNT 474 10^3/uL (150-450); RED BLOOD COUNT 4.96 10^6/uL (3.72-5.28); RED CELL DISTRIBUTION WIDTH 16.3 % (11.5-14.0); WHITE BLOOD COUNT 11.9 10^3/uL (4.0-10.5)
[2017-03-28] MEDS ORDERED: ENOXAPARIN SODIUM INJ 120 MG/0.8 ML DISP.SYRIN SUBCUT SCH (10:00)
--- NOTE | 2017-03-28 10:08 | PDOC PROGRESS REPORT ---
Subjective Progress Note for:: 03/28/17 Subjective:: Patient is one-week status post laparotomy for small bowel obstruction. She had an ileus approximately 24 hours ago and NG tube was placed. There was no output from the NG tube therefore it was ultimately removed last night as she developed bowel movements and flatus. Overnight she has further evidence of bowel function with continued bowel movements and flatus. She developed tachycardia and a sense of palpitations in her chest. EKG this morning showed tachycardia and ectopy. She was seen by Dr. Whiteside and moved to the [facility] for medical management. Her only GI complaint today is burping. Reason For Visit: SMALL BOWEL OBSTRUCTION Follow visit for exploratory laparotomy due to small bowel obstruction. The surgery was done 1 week ago today. Physical Exam Vital Signs: Temp Pulse Resp BP Pulse Ox 98.2 F 107 H 14 176/72 H 98 03/28/17 07:45 03/28/17 07:45 03/28/17 07:45 03/28/17 07:45 03/28/17 07:45 Intake & Output 03/27/17 03/28/17 03/29/17 06:59 06:59 06:59 Intake Total 1676 310 Output Total 1600 1250 Balance 76 -940 Weight 114.4 kg GI/Abdominal exam: PRESENT: other - The abdomen is much softer today than yesterday. Bowel sounds are normal. Results Impressions: Abdomen/Pelvis CT 03/20/17 13:13 IMPRESSION: NO SIGNIFICANT CHANGE FROM STUDY PERFORMED EARLIER TODAY INCLUDING DISTAL SMALL BOWEL OBSTRUCTION. Acute Abdomen Series 03/21/17 05:00 IMPRESSION: STABLE RADIOGRAPHIC APPEARANCE CONSISTENT WITH DISTAL SMALL BOWEL OBSTRUCTION. NO FREE AIR. RECOMMEND ADVANCING NASOGASTRIC TUBE 2 TO 3 CM. Abdomen X-Ray 03/27/17 00:00 IMPRESSION: 1. Findings suggest small bowel obstruction. Postoperative ileus considered less likely due to differential air-fluid levels. KUB X-Ray 03/27/17 00:00 IMPRESSION: 1. Enteric tube with the tip in the expected location of the gastric fundus. 2. Persistent gaseous distension of small bowel loops, remains worrisome for distal obstruction. 3. Mild cardiomegaly. Atelectatic changes at the right perihilar region and left lung base. Assessment & Plan - Diagnosis (1) Small bowel obstruction Is this a current diagnosis for this admission?: Yes Plan: Patient was started on clear liquid diet today. To issues with her tachycardia we will stay on clear liquids until tomorrow. And transferred to the hospitalist service for management of her cardiac issues. Dr. Ragsdale will see her tomorrow.
[2017-03-28] MEDS: METOPROLOL TARTRATE 25 MG TABLET PO SCH ×2 (10:09→22:07)
[2017-03-28 10:12] LABS: ANION GAP 12 (5-19); BLOOD UREA NITROGEN 5 mg/dL (7-20); CARBON DIOXIDE 24 mmol/L (22-30); CHLORIDE 105 mmol/L (98-107); GLUCOSE 129 mg/dL (75-110); MAGNESIUM 1.6 mg/dL (1.6-2.3); POTASSIUM 3.2 mmol/L (3.6-5.0); SODIUM 140.7 mmol/L (137-145)
[2017-03-28 10:18] LABS: ABSOLUTE LYMPHOCYTES# (MANUAL) 1.9 10^3/uL (0.5-4.7); ABSOLUTE MONOCYTES # (MANUAL) 0.6 10^3/uL (0.1-1.4); BAND NEUTROPHILS % (MANUAL) 1 % (3-5); BASOPHILS % (MANUAL) 0 % (0-2); EOSINOPHILS % (MANUAL) 3 % (0-6); LYMPHOCYTES % (MANUAL) 16 % (13-45); MONOCYTES % (MANUAL) 5 % (3-13); SEGMENTED NEUTROPHILS % (MAN) 75 % (42-78); TOTAL CELLS COUNTED 100
[2017-03-28 10:21] LABS: HYPOCHROMASIA SLIGHT; POLYCHROMASIA SLIGHT; TOXIC GRANULATION SLIGHT; TOXIC VACUOLATION PRESENT
[2017-03-28 10:22] LABS: ANISOCYTOSIS 1+; PLATELET COMMENT ADEQUATE; TARGET CELLS SLIGHT
[2017-03-28] MEDS ORDERED: DILTIAZEM HCL INJ 25 MG/5 ML VIAL IV ONE (10:30)
[2017-03-28] MEDS ORDERED: METOPROLOL TARTRATE PF/INJ 5 MG/5 ML SDV IV PRN (10:54)
[2017-03-28] MEDS: FAMOTIDINE 20 MG TABLET PO SCH ×2 (11:08→22:07)
[2017-03-28] MEDS: POTASSIUM CHLORIDE 20 MEQ/15 ML UDCUP PO SCH ×2 (11:09→22:08)
--- NOTE | 2017-03-28 11:49 | PDOC CONSULTATION ---
Consultation Consult Date: 03/28/17 Attending physician:: FARRAH TIM Consult reason:: Palpitations and frequent ventricular ectopy History of Present Illness Admission Date/PCP: 03/20/17 15:43 LORENZO BLANC MD Patient complains of: Palpitations History of Present Illness: 62-year-old female with history of hypertension and diabetes who presented with a small bowel obstruction. Patient has undergone exploratory laparotomy with lysis of adhesions. The surgeons have asked as to manage her hypertension and diabetes while she is n.p.o. This history was reviewed and confirmed. Currently had abdominal surgery with addition of lysis. Patient did not receive her scheduled metoprolol doses and this morning was noted to wake up with palpitations, rapid heartbeat. It seems patient had sinus tachycardia and frequent ectopy. Patient has also noted increased pedal edema and some shortness of breath. Patient was given IV metoprolol's by hospitalist early this morning with some improvement in his symptoms. Patient's antihypertensives are now being resumed since she is allowed to take p.o. Have been asked to follow patient because of cardiac dysrhythmia. Past Medical History Cardiac Medical History: Reports: Hypertension Denies: Coronary Artery Disease, Myocardial Infarction Pulmonary Medical History: Denies: Asthma, Bronchitis, Chronic Obstructive Pulmonary Disease (COPD), Pneumonia Neurological Medical History: Denies: Seizures Endocrine Medical History: Reports: Diabetes Mellitus Type 2 Renal/ Medical History: Reports: None Malignancy Medical History: Reports: None GI Medical History: Reports: Other - Gastric polyps Musculoskeltal Medical History: Denies: Arthritis Psychiatric Medical History: Denies: Depression Hematology: Reports: Anemia - PERNICIOUS ANEMIA Infectious Medical History: Reports: None Past Surgical History Past Surgical History: Reports: Appendectomy, Cholecystectomy, Hysterectomy Denies: Pacemaker Social History Information Source: Patient Lives with: Family Smoking Status: Never Smoker Frequency of Alcohol Use: None Hx Recreational Drug Use: No Drugs: None Hx Prescription Drug Abuse: No - Advance Directive Resuscitation Status: Full Code Surrogate healthcare decision maker:: Patient's is the surrogate decision-maker Family History Family History: Hypertension Parental Family History Reviewed: Yes Children Family History Reviewed: Yes Sibling(s) Family History Reviewed.: Yes Medication/Allergy Home Medications: Amlodipine Besylate [Norvasc 5 mg Tablet] 5 mg PO DAILY 03/20/17 Benazepril/Hydrochlorothiazide [Benazepril-Hctz 20-12.5 mg Tab] 1 each PO DAILY 03/20/17 Metoprolol Succinate [Toprol Xl 50 mg Tab.sr] 50 mg PO QPM 03/20/17 Saxagliptin HCl/Metformin HCl [Kombiglyze Xr 2.5-1,000 mg Tab] 1 each PO Q12 Allergies/Adverse Reactions: Penicillins Adverse Reaction (Intermediate, Verified 03/20/17 07:16) rash Review of Systems Review of Systems: Please see history of present illness and past medical history as wall. Constitutional: No fever or chills reported. Head : No recent chronic headaches, recent head injury. Eyes: No recent eye pain, diplopia, redness, discharge, acute visual changes. Ears: No recent chronic ear pain, acute hearing loss, ear discharge. Oral cavity: No recent ulcerations, bleeding, oral cavity discomfort. Neck: No recent acute neck pain reported. Hematologic: No recent easy bruising or bleeding or hematologic malignancy reported. Lymphatic: No recent lymphatic malignancy, chronic lymphadenopathy reported yet Cardiovascular system review: See history of present illness. Respiratory system review: No recent chronic cough, hemoptysis, blood clots in the lungs reported. Mild Shortness of breath on exertion Gastrointestinal system review: Patient status post surgery for small bowel obstruction. Prior to surgery patient had abdominal related complaints Genitourinary system review: No recent acute or chronic hematuria, flank pain, UTI etc. reported. Skin system review: Negative for any recent abnormal bruising, no rash, no pruritus reported. Neurologic: No prior history of strokes, mini strokes, seizure disorder. Psychologic: No history of major psychosis or major depression reported. Musculoskeletal: Minor aches and pains reported. No acute joint swelling reported. Endocrine: No recent polyuria, polydipsia, recent heat or cold intolerance. Physical Exam Vital Signs: Temp Pulse Resp BP Pulse Ox 98.2 F 107 H 14 176/72 H 98 03/28/17 07:45 03/28/17 07:45 03/28/17 07:45 03/28/17 07:45 03/28/17 07:45 Intake & Output 03/27/17 03/28/17 03/29/17 06:59 06:59 06:59 Intake Total 1676 310 Output Total 1600 1250 Balance 76 -940 Weight 114.4 kg Exam: GENERAL: well-nourished and in no acute distress. Alert and oriented x3 HEAD: Atraumatic, normocephalic. EYES: Pupils equal round and reactive to light, extraocular movements intact, sclera anicteric, conjunctiva are normal. ENT: TMs normal, nares patent, oropharynx clear without exudates. Moist mucous membranes. No oral ulcerations or bleeding gums noted NECK: supple without lymphadenopathy. Trachea is central. No cervical or axillary lymphadenopathy noted. Carotids are 2+, JVD WNL LUNGS: Respiration seems nonlabored, no significant accessory muscle action noted. Breath sounds clear to auscultation bilaterally and equal noted. No wheezes rales or rhonchi noted. No significant dullness noted on percussion. CHEST: Palpation of the chest wall shows no significant chest wall tenderness. No other significant abnormalities noted. HEART: [place] [employer], No PSH, 1/6 KELVIN aortic area, 1/6 hart systolic murmur mitral area, no rubs, no gallops. ABDOMEN: Soft, mild distention noted. Postsurgical mild tenderness appreciated , normoactive bowel sounds. No guarding, no rebound. No rigidity noted . No masses appreciated. EXTREMITIES: Pedal pulses are 1-2+, no calf tenderness noted. No clubbing or cyanosis.1-2+ pedal edema noted NEUROLOGICAL: Focused neurological exam showed no significant neurologic deficit. Normal speech, no focal weakness appreciated. PSYCH: Normal mood, normal affect. Judgment and insight within normal limits. SKIN: No significant ecchymosis, rash, ulcerations or signs of pruritus noted. MUSCULOSKELETAL EXAM: No significant joint swelling noted. Results Laboratory Results: 03/28/17 09:45 03/28/17 09:45 03/28/17 03/28/17 09:45 09:45 WBC 11.9 H RBC 4.96 Hgb 11.8 L Hct 36.4 MCV 73 L MCH 23.8 L MCHC 32.5 RDW 16.3 H Plt Count 474 H Seg Neutrophils % Not Reportable Lymphocytes % Not Reportable Monocytes % Not Reportable Eosinophils % Not Reportable Basophils % Not Reportable Absolute Neutrophils Not Reportable Absolute Lymphocytes Not Reportable Absolute Monocytes Not Reportable Absolute Eosinophils Not Reportable Absolute Basophils Not Reportable Sodium 140.7 Potassium 3.2 L Chloride 105 Carbon Dioxide 24 Anion Gap 12 BUN 5 L Creatinine 0.53 Est GFR ( Amer) > 60 Est GFR (Non-Af Amer) > 60 Glucose 129 H Calcium 9.0 Magnesium 1.6 EKG Comments: Sinus tachycardia with minor nonspecific T-wave changes Impressions: Abdomen/Pelvis CT 03/20/17 13:13 IMPRESSION: NO SIGNIFICANT CHANGE FROM STUDY PERFORMED EARLIER TODAY INCLUDING DISTAL SMALL BOWEL OBSTRUCTION. Acute Abdomen Series 03/21/17 05:00 IMPRESSION: STABLE RADIOGRAPHIC APPEARANCE CONSISTENT WITH DISTAL SMALL BOWEL OBSTRUCTION. NO FREE AIR. RECOMMEND ADVANCING NASOGASTRIC TUBE 2 TO 3 CM. Abdomen X-Ray 03/27/17 00:00 IMPRESSION: 1. Findings suggest small bowel obstruction. Postoperative ileus considered less likely due to differential air-fluid levels. KUB X-Ray 03/27/17 00:00 IMPRESSION: 1. Enteric tube with the tip in the expected location of the gastric fundus. 2. Persistent gaseous distension of small bowel loops, remains worrisome for distal obstruction. 3. Mild cardiomegaly. Atelectatic changes at the right perihilar region and left lung base. 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 insulin use status Qualified Code(s): E11.9 - Type 2 diabetes mellitus without complications Is this a current diagnosis for this admission?: Yes (3) Hypertension Qualifiers: Hypertension type: essential hypertension Qualified Code(s): I10 - Essential (primary) hypertension Is this a current diagnosis for this admission?: Yes (4) Ileus following gastrointestinal surgery Is this a current diagnosis for this admission?: Yes (5) Small bowel obstruction Is this a current diagnosis for this admission?: Yes (6) Hypokalemia Is this a current diagnosis for this admission?: Yes (7) Pedal edema Is this a current diagnosis for this admission?: Yes - Notes Notes: Tachycardia: Patient is postop several days. Need to rule out pulmonary embolism. Have therefore ordered a CTA to rule out pulmonary embolism. Other possible causes, could be withdrawal from beta-julieth which she did not receive for several days. Have written orders for IV metoprolol was and p.o. metoprolol was also started. Twelve-lead EKG is reviewed and shows only sinus tachycardia. Rhythm strip does show some increased ventricular ectopy. Hypokalemia: Have ordered additional KCl. Pedal edema: Have placed patient on Lasix 20 mg p.o. Replace potassium. Diabetes: Recommend good control of blood sugar. However should avoid any hypoglycemia or hyperglycemia. Patient being expertly managed by primary care [place] Hypertension: Reasonably well controlled. Blood pressure goal in this patient is 135/85 or less. This was discussed with the patient. Currently blood pressure under reasonable control. Better medication for this patient are BRIELLE inhibitor/ARB/beta julieth etc. discussed side effects of uncontrolled hypertension and also severe hypotension. Status post small bowel obstruction and surgery for it: Patient recuperating well. Will leave management to surgeon. Recommend DVT prophylaxis and also pulmonary toilet to avoid any atelectasis. - Time Time Spent: 30 to 50 Minutes - CODE STATUS was discussed, patient remains full code. Surrogate decision-maker patient's . Multiple medical problems were addressed. More than 50% of the time spent coordinating care, discussing management plans with involved caregivers. Management plans discussed with involved personnels. Medical decision making was of moderate to high complexity , patient's has multiple comorbidities. Medications reviewed and adjusted accordingly: Yes
--- NOTE | 2017-03-28 12:01 | EKG REPORT ---
SEVERITY:- ABNORMAL ECG - SINUS TACHYCARDIA MULTIPLE ATRIAL PREMATURE COMPLEXES NONSPECIFIC T ABNORMALITIES, LATERAL LEADS : Confirmed by: Fiona Lofton MD 28-Mar-2017 12:00:44
--- NOTE | 2017-03-28 12:02 | EKG REPORT ---
SEVERITY:- ABNORMAL ECG - SINUS TACHYCARDIA ATRIAL PREMATURE COMPLEX PROBABLE LVH WITH SECONDARY REPOL ABNRM : Confirmed by: Fiona Lofton MD 28-Mar-2017 12:01:22
[2017-03-28] MEDS ORDERED: FUROSEMIDE 40 MG TABLET PO ONE (12:15)
[2017-03-28] MEDS ORDERED: POTASSIUM CHLORIDE 20 MEQ/15 ML UDCUP PO ONE (12:30)
[2017-03-28] MEDS: HYDRALAZINE HCL 50 MG TABLET PO SCH ×2 (14:02→22:03)
--- NOTE | 2017-03-28 15:15 | RADIOLOGY REPORT (SQ) ---
EXAM DESCRIPTION: NM LUNG PERFUSION SCAN COMPLETED DATE/TIME: 03/28/2017 3:06 pm REASON FOR STUDY: SOB and Afib COMPARISON: Single-view chest image as part of an abdomen study on 03/27/2017. RADIONUCLIDE AND DOSE: 5.38 millicuries TC-99m MAA The route of agent administration: Intravenous TECHNIQUE: Eight views of the lungs acquired following injection of MAA. LIMITATIONS: None. FINDINGS: PERFUSION: Perfusion images with normal homogenous activity and no wedge-shaped or segment al defects. OTHER: No other significant finding. IMPRESSION: NORMAL PERFUSION LUNG SCAN. TECHNICAL DOCUMENTATION: JOB ID: [id number] [employer]- All Rights Reserved
--- NOTE | 2017-03-28 15:49 | PROGRESS NOTE E ---
Progress Note NAME: EDDA SIMPSON : 1955 AGE: 62Y DATE: 03/28/2017 ROOM: 304 SUBJECTIVE: The patient was seen today in rounds. The patient initially was on Surgery. The patient missed a dose of beta julieth last night and began having significant tachycardia with heart rates in the 120s that got up to the 150s with activity. The patient appeared to for the most part be in sinus. However, she did have numerous PACs. The patient at times appeared to be in an atrial rhythm. However, the patient denied any nausea, vomiting. No diarrhea, shortness of breath, dizziness, chest pain. No fevers or chills. The patient had a bowel movement and has been burping and passing gas appropriately, and the patient does admit to being quite anxious. The case was discussed with the surgicalist, and have agreed to take the patient on our service with Surgery as a consulting as the patient's bowel is now working appropriately and she is taking liquids. BRIEF HISTORY: The patient is a 62-year-old -[place] female with a past medical history of severe hypertension. The patient's blood pressures systolically remain in the 170s. The patient does not have a blood pressure less than 150 systolically recorded in [facility] since 2011. The patient was noted to have a small bowel obstruction and is status post operative repair. The patient's course has been prolonged given a need for an NG tube reinsertion, and the hospitalists have been consulted for management of the patient's hypertension. The patient's hypertension is quite severe. Therefore, her goal systolic blood pressures have been 160. The patient has hit her goal a few times; however, blood pressure remains elevated. Given that the patient has gone into significant tachycardia, the patient has been transitioned over to the hospitalist, and Cardiology as well has been consulted. REVIEW OF SYSTEMS: Rest of review of the systems is negative. MEDICATIONS: Medications have been reviewed. OBJECTIVE: GENERAL: The patient is a 62-year-old -[place] female who is awake, alert and oriented to person, place, time and situation. She is verbal, conversational, does not appear to be in any acute distress. VITAL SIGNS FOLLOWS: Temperature is 98.6. Pulse 96. Respirations 18. Blood pressure is 173/82. Oxygen saturation 96% on room air. SKIN: Warm and dry. No rash. She is not diaphoretic. HEENT: Pupils equal, round and reactive to light and accommodation. Conjunctivae are pink. NECK: There is no evidence of JVP. CARDIOVASCULAR SYSTEM: Heart is irregular. No rub. CHEST: Clear, symmetrical, unlabored. ABDOMEN: Postsurgical. No area of focal tenderness. EXTREMITIES: No clubbing, cyanosis, edema. PSYCHIATRIC: Appropriate affect. Pleasant mood. DIAGNOSTICS: Lab values are as follows. Hematology obtained on 03/28/2017: WBCs are 11.9. Hemoglobin is 11.8. Hematocrit is 36.4. Platelet count is 474,000. Chemistry obtained on 03/28/2017: Sodium is 140, potassium 3.2. Chloride is 105. Carbon dioxide 24. BUN 5. Creatinine is 0.53. Glucose 129. Calcium is 9.0. Magnesium is 1.6. IMPRESSION AND PLAN: 1. TACHYCARDIA. The patient has been ruled out for pulmonary embolism. I do feel some of this may be rebounding from a missed dose of beta julieth. I do appreciate Dr. Preciado's consultation with this. Repeat 12-lead EKG does show sinus versus a previous EKG that appeared to be more of a sinus arrhythmia with ventricular ectopy. Regardless, have resumed beta julieth. Patient has been supplemented IV, and will follow. The patient will be transferred to [facility]. 2. HYPOKALEMIA. This is being supplemented. 3. DIABETES MELLITUS TYPE 2. The patient does have excellent glycemic control at this time. 4. HYPERTENSION. For this patient, her goal should be a systolic blood pressure of 160 given that she has severe hypertension. I do believe the patient would be debilitated with a systolic blood pressure in the 130s. Continue the patient's current medications and monitor as this appears to be an effective regimen at this time. 5. SMALL BOWEL OBSTRUCTION STATUS POST SURGICAL CORRECTION. I do appreciate Surgery's input on this. The patient has been tolerating clear liquids. Diet will be advanced as tolerated. 6. ANXIETY. DISPOSITION: The patient is a FULL CODE. Pending patient's symptomatology and diagnostic findings, will reevaluate as needed. TIME SPENT: Time spent on this followup including assessment, plan, physical examination, patient education, review of records, specialty collaborations is 35 minutes. DICTATING PHYSICIAN: FARRAH TMI NP [id number] PHY#: [id number] ID: [id number] JOB#: [id number] ACCT: [id number] cc: >
[2017-03-28 20:07] LABS: INTERNATIONAL RATION (INR) 0.98; PROTHROMBIN TIME 13.7 SEC (11.4-15.4)
[2017-03-29 04:54] LABS: HEMATOCRIT 32.6 % (36.0-47.0); HEMOGLOBIN 10.6 g/dL (12.0-15.5); MEAN CORPUSCULAR HGB CONC 32.6 g/dL (32.0-36.0); MEAN CORPUSCULAR VOLUME 74 fl (80-97); PLATELET COUNT 367 10^3/uL (150-450); RED BLOOD COUNT 4.42 10^6/uL (3.72-5.28); RED CELL DISTRIBUTION WIDTH 16.5 % (11.5-14.0); WHITE BLOOD COUNT 10.5 10^3/uL (4.0-10.5)
[2017-03-29] MEDS: HYDRALAZINE HCL 50 MG TABLET PO SCH (05:11)
[2017-03-29 05:14] LABS: ANION GAP 8 (5-19); BLOOD UREA NITROGEN 4 mg/dL (7-20); CALCIUM 8.6 mg/dL (8.4-10.2); CARBON DIOXIDE 26 mmol/L (22-30); CHLORIDE 106 mmol/L (98-107); GLUCOSE 116 mg/dL (75-110); MAGNESIUM 1.5 mg/dL (1.6-2.3); POTASSIUM 3.2 mmol/L (3.6-5.0)
[2017-03-29] MEDS: AMLODIPINE BESYLATE 10 MG TABLET PO SCH (09:34)
[2017-03-29] MEDS: FUROSEMIDE 20 MG TABLET PO SCH (09:34)
[2017-03-29] MEDS: POTASSIUM CHLORIDE 20 MEQ/15 ML UDCUP PO SCH ×2 (09:34→21:17)
[2017-03-29] MEDS: FAMOTIDINE 20 MG TABLET PO SCH ×2 (09:34→21:16)
[2017-03-29] MEDS: METOPROLOL TARTRATE 25 MG TABLET PO SCH (09:34)
[2017-03-29] MEDS: ENOXAPARIN SODIUM INJ 40 MG/0.4 ML DISP.SYRIN SUBCUT SCH (09:35)
[2017-03-29] MEDS ORDERED: LABETALOL HCL INJ 20 MG/4 ML DISP.SYRIN IV PRN (11:09)
--- NOTE | 2017-03-29 11:17 | PDOC PROGRESS REPORT ---
Subjective Progress Note for:: 03/29/17 Subjective:: The patient states that she is feeling a little better today. She has had no further episodes of tachycardia. She states that she just feels weak and tired. She is hoping that her diet can be advanced. She states that she feels like she has bowel sounds. She is passing gas and she is having bowel movements. She is having no chest pain. She has had no further episodes of nausea. No vomiting. Her abdomen is sore from her recent surgery but no worsening abdominal pain. No urinary complaints. Reason For Visit: SMALL BOWEL OBSTRUCTION Physical Exam Vital Signs: Temp Pulse Resp BP Pulse Ox 97.7 F 107 H 24 H 186/76 H 93 03/29/17 07:04 03/29/17 07:04 03/29/17 07:04 03/29/17 07:04 03/29/17 07:04 Intake & Output 03/28/17 03/29/17 03/30/17 06:59 06:59 06:59 Intake Total 310 250 Output Total 1250 Balance -940 250 General appearance: PRESENT: no acute distress, obese, well-developed, well- nourished Head exam: PRESENT: atraumatic, normocephalic Mouth exam: PRESENT: moist, tongue midline Respiratory exam: PRESENT: clear to auscultation jovani. ABSENT: rales, rhonchi, wheezes Cardiovascular exam: PRESENT: RRR. ABSENT: diastolic murmur, rubs, systolic murmur GI/Abdominal exam: PRESENT: normal bowel sounds, soft. ABSENT: distended, guarding, mass, organolmegaly, rebound, tenderness Rectal exam: PRESENT: deferred Extremities exam: PRESENT: full ROM. ABSENT: calf tenderness, clubbing, pedal edema Neurological exam: PRESENT: alert, awake, oriented to person, oriented to place , oriented to time, oriented to situation, CN II-XII grossly intact. ABSENT: motor sensory deficit Skin exam: PRESENT: dry, intact, warm, other - She has a midline incision that appears to be healing well.. ABSENT: cyanosis, rash Results Laboratory Results: 03/29/17 04:08 03/29/17 04:08 03/29/17 03/29/17 04:08 04:08 WBC 10.5 RBC 4.42 Hgb 10.6 L Hct 32.6 L MCV 74 L MCH 24.0 L MCHC 32.6 RDW 16.5 H Plt Count 367 Sodium 140.0 Potassium 3.2 L Chloride 106 Carbon Dioxide 26 Anion Gap 8 BUN 4 L Creatinine 0.50 L Est GFR ( Amer) > 60 Est GFR (Non-Af Amer) > 60 Glucose 116 H Calcium 8.6 Magnesium 1.5 L Impressions: Abdomen/Pelvis CT 03/20/17 13:13 IMPRESSION: NO SIGNIFICANT CHANGE FROM STUDY PERFORMED EARLIER TODAY INCLUDING DISTAL SMALL BOWEL OBSTRUCTION. Acute Abdomen Series 03/21/17 05:00 IMPRESSION: STABLE RADIOGRAPHIC APPEARANCE CONSISTENT WITH DISTAL SMALL BOWEL OBSTRUCTION. NO FREE AIR. RECOMMEND ADVANCING NASOGASTRIC TUBE 2 TO 3 CM. Abdomen X-Ray 03/27/17 00:00 IMPRESSION: 1. Findings suggest small bowel obstruction. Postoperative ileus considered less likely due to differential air-fluid levels. KUB X-Ray 03/27/17 00:00 IMPRESSION: 1. Enteric tube with the tip in the expected location of the gastric fundus. 2. Persistent gaseous distension of small bowel loops, remains worrisome for distal obstruction. 3. Mild cardiomegaly. Atelectatic changes at the right perihilar region and left lung base. Lung Scan-VQ NM 03/28/17 00:00 IMPRESSION: NORMAL PERFUSION LUNG SCAN. Assessment & Plan - Diagnosis (1) Small bowel obstruction Is this a current diagnosis for this admission?: Yes Plan: Status post exploratory laparotomy. The patient is now tolerating a clear liquid diet and has for several days. She is passing gas and is having bowel movements. I tried to get in touch with general surgery but they are in the operating room today. I am going to advance her to a full liquid diet and we will see how she tolerates that. (2) Tachycardia Is this a current diagnosis for this admission?: Yes Plan: Possibly due to being off of her beta-julieth. She has some very mild sinus tachycardia this morning. We will keep her on her remote monitor for now. Cardiology saw the patient yesterday and we appreciate their assistance. I will defer to them on whether to increase her beta-julieth. (3) Diabetes mellitus Qualifiers: Diabetes mellitus type: type 2 Diabetes mellitus complication status: without complication Diabetes mellitus correction insulin use: unspecified correction insulin use status Qualified Code(s): E11.9 - Type 2 diabetes mellitus without complications Is this a current diagnosis for this admission?: Yes Plan: Continue sliding-scale coverage (4) Hypertension Qualifiers: Hypertension type: essential hypertension Qualified Code(s): I10 - Essential (primary) hypertension Is this a current diagnosis for this admission?: Yes Plan: I will add IV labetalol to her regimen. (5) Hypokalemia Is this a current diagnosis for this admission?: Yes Plan: Continue potassium supplementation (6) Obesity (BMI 30-39.9) Is this a current diagnosis for this admission?: Yes Plan: Currently she is on a clear liquid diet which we are going to advance today. (7) Anemia Is this a current diagnosis for this admission?: Yes Plan: Multifactorial likely due to possible iron deficiency as she has a microcytic anemia. Also postoperative blood losses. I am going to get an anemia panel on the patient today and we will follow-up with those results. (8) Hypomagnesemia Is this a current diagnosis for this admission?: Yes Plan: This will be repleted today and we will recheck a level in the morning. - Time Time Spent with patient: 25-34 minutes - Inpatient Certification Medical Necessity: Other - Inpatient hospitalization remains necessary. We need to continue to monitor the patient's heart rate to make sure she has no more issues. Her blood pressure is too high. Also her diet has not been advanced. She does seem to be doing well. I have encouraged her to walk and as soon as we get her diet advance she can hopefully be discharged home.
[2017-03-29] MEDS: MAGNESIUM SULFATE/D5W 1 GM/100 ML RTUPB IV SCH ×2 (12:15→16:04)
--- NOTE | 2017-03-29 15:57 | PDOC PROGRESS REPORT ---
Subjective Progress Note for:: 03/29/17 Reason For Visit: SMALL BOWEL OBSTRUCTION Patient is postoperative day 8 status post exploratory laparotomy, small bowel lysis of adhesions, tolerating liquids. Patient is postoperative day 8 Physical Exam Vital Signs: Temp Pulse Resp BP Pulse Ox 98.1 F 97 18 166/75 H 96 03/29/17 12:37 03/29/17 14:00 03/29/17 12:37 03/29/17 12:37 03/29/17 12:37 Intake & Output 03/28/17 03/29/17 03/30/17 06:59 06:59 06:59 Intake Total 310 250 307 Output Total 1250 Balance -940 250 307 General appearance: PRESENT: no acute distress GI/Abdominal exam: PRESENT: other - Was intact, honeycomb dressing in place. Abdomen not distended Results Laboratory Results: 03/29/17 04:08 03/29/17 04:08 03/29/17 03/29/17 04:08 04:08 WBC 10.5 RBC 4.42 Hgb 10.6 L Hct 32.6 L MCV 74 L MCH 24.0 L MCHC 32.6 RDW 16.5 H Plt Count 367 Sodium 140.0 Potassium 3.2 L Chloride 106 Carbon Dioxide 26 Anion Gap 8 BUN 4 L Creatinine 0.50 L Est GFR ( Amer) > 60 Est GFR (Non-Af Amer) > 60 Glucose 116 H Calcium 8.6 Magnesium 1.5 L Impressions: Abdomen/Pelvis CT 03/20/17 13:13 IMPRESSION: NO SIGNIFICANT CHANGE FROM STUDY PERFORMED EARLIER TODAY INCLUDING DISTAL SMALL BOWEL OBSTRUCTION. Acute Abdomen Series 03/21/17 05:00 IMPRESSION: STABLE RADIOGRAPHIC APPEARANCE CONSISTENT WITH DISTAL SMALL BOWEL OBSTRUCTION. NO FREE AIR. RECOMMEND ADVANCING NASOGASTRIC TUBE 2 TO 3 CM. Abdomen X-Ray 03/27/17 00:00 IMPRESSION: 1. Findings suggest small bowel obstruction. Postoperative ileus considered less likely due to differential air-fluid levels. KUB X-Ray 03/27/17 00:00 IMPRESSION: 1. Enteric tube with the tip in the expected location of the gastric fundus. 2. Persistent gaseous distension of small bowel loops, remains worrisome for distal obstruction. 3. Mild cardiomegaly. Atelectatic changes at the right perihilar region and left lung base. Lung Scan-VQ SD 03/28/17 00:00 IMPRESSION: NORMAL PERFUSION LUNG SCAN. Assessment & Plan - Diagnosis (1) Small bowel obstruction Is this a current diagnosis for this admission?: Yes (2) Small bowel obstruction Plan: Patient is postoperative day 8 status post exploratory laparotomy, lysis of adhesions, extensive, by Dr. Barboza, making nice progress. Commendations: 1. Advance diet as tolerated 2. Anticipate discharge home tomorrow.
[2017-03-29] MEDS ORDERED: MAGNESIUM SULFATE/D5W 1 GM/100 ML RTUPB IV ONE (17:15)
[2017-03-29] MEDS: HYDRALAZINE HCL INJ/PF 20 MG/1 ML SDV IV PRN ×2 (17:55→21:18)
--- NOTE | 2017-03-29 18:12 | XCELERA REPORT ---
[address] [address] Transthoracic Echocardiogram Report Name: EDDA SIMPSON Age: 62 yrs Gender: Female : 1955 Patient Status: Inpatient Patient Location: [address] [place], [place] [address] Study Date: 03/29/2017 09:35 AM Height: 67 in Weight: 252 lb BSA: 2.2 m2 Procedure: A complete two-dimensional transthoracic echocardiogram was performed (2D, M-mode, spectral and color flow Doppler). The study was technically adequate with some images being suboptimal in quality. Reason For Study: SOB, edema, New sinus arry Ordering Physician: FARRAH TIM Performed By: Jayna Jara Interpretation Summary The left ventricular ejection fraction is normal. There is mild concentric left ventricular hypertrophy. Doppler measurements suggest pseudonormalized left ventricular relaxation, which is associated with grade II/IV or mild to moderate diastolic dysfunction The left ventricle is grossly normal size. Wall motion cannot be accurately commented on, but no definite regional wall motion abnormalities noted. The right ventricular systolic function is normal. The left atrial size is normal. The right atrium is normal in size There is a trace amount of mitral regurgitation There is no mitral valve stenosis. There is a trace amount of aortic regurgitation There is no aortic valve stenosis There is a trace to mild amount of tricuspid regurgitation There is mild pulmonary hypertension by echo Right ventricular systolic pressure is estimated to be elevated at 30- 40mmHg. There is no pericardial effusion. MMode/2D Measurements & Calculations RVDd: 3.1 cm LVIDd: 4.1 cm FS: 41.0 % Ao root diam: 2.6 cm IVSd: 1.2 cm LVIDs: 2.4 cm EDV(Teich): 76.3 ml LVPWd: 1.2 cm ESV(Teich): 21.2 ml Ao root area: 5.5 cm2 EF(Teich): 72.3 % Doppler Measurements & Calculations MV E max felicity: MV dec slope: Ao V2 max: LV V1 max P.5 cm/sec 162.4 cm/sec 7.2 mmHg MV A max felicity: 547.5 cm/sec2 Ao max PG: LV V1 max: 125.1 cm/sec MV dec time: 10.5 mmHg 134.4 cm/sec MV E/A: 0.74 0.17 sec PA V2 max: TR max felicity: 129.4 cm/sec 268.8 cm/sec PA max P.7 mmHgTR max P.9 mmHg Left Ventricle The left ventricle is grossly normal size. There is mild concentric left ventricular hypertrophy. The left ventricular ejection fraction is normal. Doppler measurements suggest pseudonormalized left ventricular relaxation, which is associated with grade II/IV or mild to moderate diastolic dysfunction. Wall motion cannot be accurately commented on, but no definite regional wall motion abnormalities noted. Right Ventricle The right ventricle is mildly dilated. There is normal right ventricular wall thickness. The right ventricular systolic function is normal. Atria The right atrium is normal in size. The left atrial size is normal. Interarterial septum not well visualized and not well dopplered. Cannot comment on ASD/PFO presence. Mitral Valve The mitral valve is grossly normal. There is no mitral valve stenosis. There is a trace amount of mitral regurgitation. Aortic Valve The aortic valve is grossly normal. There is no aortic valve stenosis. There is a trace amount of aortic regurgitation. Tricuspid Valve The tricuspid valve is not well visualized, but is grossly normal. There is no tricuspid stenosis. There is a trace to mild amount of tricuspid regurgitation. There is mild pulmonary hypertension by echo. Right ventricular systolic pressure is estimated to be elevated at 30-40mmHg. Pulmonic Valve The pulmonic valve is not well visualized. Great Vessels The aortic root is not well visualized. The inferior vena cava appeared normal and decreased > 50% with respiration (RAP 5-10 mmHg). Effusions There is no pericardial effusion. : FARRAH TIM > Mabel Preciado
--- NOTE | 2017-03-29 18:39 | PDOC PROGRESS REPORT ---
Subjective Progress Note for:: 03/29/17 Subjective:: Patient seems to be doing better with gradual improvement. Patient still feels tachycardia at times. Blood pressure remains elevated. Pt is denying any chest arm or neck discomfort. Patient denying any PND, orthopnea. Patient denied any sustained palpitations, dizziness, syncope, near syncope. Patient denying any fever chills. Patient denying any other significant discomfort. Patient is maintaining sinus rhythm. Review of systems: Rest review of systems negative. Medications: Medications have been reviewed. Reason For Visit: SMALL BOWEL OBSTRUCTION Physical Exam Vital Signs: Temp Pulse Resp BP Pulse Ox 98.4 F 100 18 187/75 H 95 03/29/17 15:53 03/29/17 15:53 03/29/17 15:53 03/29/17 15:53 03/29/17 15:53 Intake & Output 03/28/17 03/29/17 03/30/17 06:59 06:59 06:59 Intake Total 310 250 307 Output Total 1250 Balance -940 250 307 Exam: GENERAL: well-nourished and in no acute distress. Alert and oriented x3 HEAD: Atraumatic, normocephalic. EYES: Pupils equal round and reactive to light, extraocular movements intact, sclera anicteric, conjunctiva are normal. ENT: TMs normal, nares patent, oropharynx clear without exudates. Moist mucous membranes. No oral ulcerations or bleeding gums noted NECK: supple without lymphadenopathy. Trachea is central. No cervical or axillary lymphadenopathy noted. Carotids are 2+, JVD WNL LUNGS: Respiration seems nonlabored, no significant accessory muscle action noted. Breath sounds clear to auscultation bilaterally and equal noted. No wheezes rales or rhonchi noted. No significant dullness noted on percussion. CHEST: Palpation of the chest wall shows no significant chest wall tenderness. No other significant abnormalities noted. 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 ABDOMEN: Soft, mild distention and mild postsurgical tenderness appreciated, normoactive bowel sounds. No guarding, no rebound. No rigidity noted . No masses appreciated. EXTREMITIES: Pedal pulses are 1-2+, no calf tenderness noted. No clubbing or cyanosis.trace to 1+ pedal edema noted NEUROLOGICAL: Focused neurological exam showed no significant neurologic deficit. Normal speech, no focal weakness appreciated. PSYCH: Normal mood, normal affect. Judgment and insight within normal limits. SKIN: No significant ecchymosis, rash, ulcerations or signs of pruritus noted. MUSCULOSKELETAL EXAM: No significant joint swelling noted. Results Laboratory Results: 03/29/17 04:08 03/29/17 04:08 03/29/17 03/29/17 04:08 04:08 WBC 10.5 RBC 4.42 Hgb 10.6 L Hct 32.6 L MCV 74 L MCH 24.0 L MCHC 32.6 RDW 16.5 H Plt Count 367 Sodium 140.0 Potassium 3.2 L Chloride 106 Carbon Dioxide 26 Anion Gap 8 BUN 4 L Creatinine 0.50 L Est GFR ( Amer) > 60 Est GFR (Non-Af Amer) > 60 Glucose 116 H Calcium 8.6 Magnesium 1.5 L EKG Comments: Telemetry strip shows sinus rhythm with mild intermittent sinus tachycardia. No sustained tachycardia or bradycardia arrhythmias noted. Impressions: Abdomen/Pelvis CT 03/20/17 13:13 IMPRESSION: NO SIGNIFICANT CHANGE FROM STUDY PERFORMED EARLIER TODAY INCLUDING DISTAL SMALL BOWEL OBSTRUCTION. Acute Abdomen Series 03/21/17 05:00 IMPRESSION: STABLE RADIOGRAPHIC APPEARANCE CONSISTENT WITH DISTAL SMALL BOWEL OBSTRUCTION. NO FREE AIR. RECOMMEND ADVANCING NASOGASTRIC TUBE 2 TO 3 CM. Abdomen X-Ray 03/27/17 00:00 IMPRESSION: 1. Findings suggest small bowel obstruction. Postoperative ileus considered less likely due to differential air-fluid levels. KUB X-Ray 03/27/17 00:00 IMPRESSION: 1. Enteric tube with the tip in the expected location of the gastric fundus. 2. Persistent gaseous distension of small bowel loops, remains worrisome for distal obstruction. 3. Mild cardiomegaly. Atelectatic changes at the right perihilar region and left lung base. Lung Scan-VQ DE 03/28/17 00:00 IMPRESSION: NORMAL PERFUSION LUNG SCAN. Assessment & Plan - Diagnosis (1) Tachycardia Is this a current diagnosis for this admission?: Yes (2) Diabetes mellitus Qualifiers: Diabetes mellitus type: type 2 Diabetes mellitus complication status: without complication Diabetes mellitus fdc insulin use: unspecified fdc insulin use status Qualified Code(s): E11.9 - Type 2 diabetes mellitus without complications Is this a current diagnosis for this admission?: Yes (3) Hypertension Qualifiers: Hypertension type: essential hypertension Qualified Code(s): I10 - Essential (primary) hypertension Is this a current diagnosis for this admission?: Yes (4) Ileus following gastrointestinal surgery Is this a current diagnosis for this admission?: Yes (5) Small bowel obstruction Is this a current diagnosis for this admission?: Yes (6) Hypokalemia Is this a current diagnosis for this admission?: Yes (7) Pedal edema Is this a current diagnosis for this admission?: Yes (8) Sleep apnea syndrome Qualifiers: Sleep apnea type: unspecified type Qualified Code(s): G47.30 - Sleep apnea , unspecified Is this a current diagnosis for this admission?: Yes - Notes Notes: 2D echocardiogram shows normal LVEF, mild to moderate LVH, no significant valvular abnormalities noted. Grade 2 diastolic dysfunction noted. Discussed that due to difficulty with control of blood pressure and patient being on multiple blood pressure medication, she will benefit from a sleep study and this can be scheduled as an outpatient. Have increased metoprolol succinate to 50 p.o. every 12. This is mainly to treat tachycardia may also help with blood pressure measurements Tachycardia: Patient is postop several days. Have written orders for IV metoprolol was and p.o. metoprolol was also started, dose being escalated. Twelve-lead EKG is reviewed and shows only sinus tachycardia. Hypokalemia: Continue with replacement therapy and keep potassium above 3.7 mg/ L. Pedal edema: Improved. Continue patient on Lasix 20 mg p.o. Replace potassium. Diabetes: Recommend good control of blood sugar. However should avoid any hypoglycemia or hyperglycemia. Patient being expertly managed by primary care MSugar. Hypertension: Reasonably well controlled. Blood pressure goal in this patient is 135/85 or less. This was discussed with the patient. Currently blood pressure under reasonable control. Better medication for this patient are BRIELLE inhibitor/ARB/beta julieth etc. discussed side effects of uncontrolled hypertension and also severe hypotension. Sleep apnea syndrome: Patient strongly suspected to have underlying sleep apnea syndrome. This is based on comorbid diagnosis, oropharyngeal exam and physical exam as well as symptom review. Patient has been advised to pursue a sleep study. Status post small bowel obstruction and surgery for it: Patient recuperating well. Will leave management to surgeon. Recommend DVT prophylaxis and also pulmonary toilet to avoid any atelectasis. Patient seems stable cardiac martin. Will sign off. - Time Time with patient: Greater than 35 minutes - CODE STATUS was discussed, patient remains full code. Surrogate decision-maker unchanged. Multiple medical problems were addressed. More than 50% of the time spent coordinating care, discussing management plans with involved caregivers. Management plans discussed with involved personnels. Medical decision making was of moderate to high complexity, patient's has multiple comorbidities. Medications reviewed and adjusted accordingly: Yes
[2017-03-29] MEDS: METOPROLOL SUCCINATE 50 MG TAB.SR.24H PO SCH (21:16)
[2017-03-30 04:58] LABS: ABSOLUTE BASOPHILS # (AUTO) 0.1 10^3/uL (0.0-0.2); ABSOLUTE EOSINOPHILS # (AUTO) 0.2 10^3/uL (0.0-0.6); ABSOLUTE LYMPHOCYTES (AUTO) 1.2 10^3/uL (0.5-4.7); ABSOLUTE MONOCYTES (AUTO) 0.7 10^3/uL (0.1-1.4); ABSOLUTE NEUT (AUTO) 10.3 10^3/uL (1.7-8.2); ABSOLUTE RETICS # 0.084 10^6/uL (0.028-0.122); BASOPHILS % (AUTO) 0.5 % (0-2); EOSINOPHILS % (AUTO) 1.2 % (0-6); HEMATOCRIT 34.1 % (36.0-47.0); HEMOGLOBIN 11.2 g/dL (12.0-15.5); LYMPHOCYTES % (AUTO) 9.4 % (13-45); MEAN CORPUSCULAR HEMOGLOBIN 23.9 pg (27.0-33.4); MEAN CORPUSCULAR HGB CONC 32.7 g/dL (32.0-36.0); MEAN CORPUSCULAR VOLUME 73 fl (80-97); MONOCYTES % (AUTO) 5.8 % (3-13); PLATELET COUNT 489 10^3/uL (150-450); RED BLOOD COUNT 4.68 10^6/uL (3.72-5.28); RED CELL DISTRIBUTION WIDTH 16.5 % (11.5-14.0); RETICULOCYTE COUNT (AUTO) 1.79 % (0.66-2.85); SEGMENTED NEUTROPHILS % (AUTO) 83.1 % (42-78); TOTAL CELLS COUNTED % (AUTO) 100 %; WHITE BLOOD COUNT 12.4 10^3/uL (4.0-10.5)
[2017-03-30 05:10] LABS: ANION GAP 9 (5-19); CALCIUM 8.5 mg/dL (8.4-10.2); CARBON DIOXIDE 28 mmol/L (22-30); CHLORIDE 104 mmol/L (98-107); GLUCOSE 131 mg/dL (75-110); IRON(TIBC) 38.5 ug/dL (37-170); MAGNESIUM 1.8 mg/dL (1.6-2.3); POTASSIUM 3.5 mmol/L (3.6-5.0); SODIUM 141.2 mmol/L (137-145)
[2017-03-30 05:27] LABS: BLOOD UREA NITROGEN < 2 mg/dL (7-20)
[2017-03-30 06:19] LABS: FOLATE > 20.00 ng/mL (>2.76)
[2017-03-30] MEDS: AMLODIPINE BESYLATE 10 MG TABLET PO SCH (10:27)
[2017-03-30] MEDS: FUROSEMIDE 20 MG TABLET PO SCH (10:31)
[2017-03-30] MEDS: POTASSIUM CHLORIDE 20 MEQ/15 ML UDCUP PO SCH (10:31)
[2017-03-30] MEDS: FAMOTIDINE 20 MG TABLET PO SCH (10:31)
[2017-03-30] MEDS: ENOXAPARIN SODIUM INJ 40 MG/0.4 ML DISP.SYRIN SUBCUT SCH (10:32)
[2017-03-30] MEDS: METOPROLOL SUCCINATE 50 MG TAB.SR.24H PO SCH (10:32)
--- NOTE | 2017-03-30 13:32 | PDOC PROGRESS REPORT ---
Subjective Progress Note for:: 03/30/17 Subjective:: Patient is doing well has no complaints no headache lightheadedness no fever no chills No chest pain eating well and ambulating Blood pressure is still a bit high medications have been adjusted Reason For Visit: SMALL BOWEL OBSTRUCTION Physical Exam Vital Signs: Temp Pulse Resp BP Pulse Ox 98.7 F 99 18 179/76 H 95 03/30/17 07:20 03/30/17 07:20 03/30/17 07:20 03/30/17 07:20 03/30/17 07:20 Intake & Output 03/29/17 03/30/17 03/31/17 00:59 00:59 00:59 Intake Total 550 885 31 Output Total 1250 Balance -700 885 31 General appearance: PRESENT: no acute distress, well-developed, well-nourished Head exam: PRESENT: atraumatic, normocephalic Eye exam: PRESENT: conjunctiva pink, EOMI, PERRLA. ABSENT: scleral icterus Neck exam: ABSENT: carotid bruit, JVD, lymphadenopathy, thyromegaly Respiratory exam: PRESENT: clear to auscultation jovani. ABSENT: rales, rhonchi, wheezes Pulses: PRESENT: normal dorsalis pedis pul GI/Abdominal exam: PRESENT: normal bowel sounds, soft. ABSENT: distended, guarding, mass, organolmegaly, rebound, tenderness Extremities exam: PRESENT: full ROM. ABSENT: calf tenderness, clubbing, pedal edema Neurological exam: PRESENT: alert, awake, oriented to person, oriented to place , oriented to time, oriented to situation, CN II-XII grossly intact. ABSENT: motor sensory deficit Results Laboratory Results: 03/30/17 04:03 03/30/17 04:03 03/30/17 03/30/17 04:03 04:03 WBC 12.4 H RBC 4.68 Hgb 11.2 L Hct 34.1 L MCV 73 L MCH 23.9 L MCHC 32.7 RDW 16.5 H Plt Count 489 H Seg Neutrophils % 83.1 H Lymphocytes % 9.4 L Monocytes % 5.8 Eosinophils % 1.2 Basophils % 0.5 Absolute Neutrophils 10.3 H Absolute Lymphocytes 1.2 Absolute Monocytes 0.7 Absolute Eosinophils 0.2 Absolute Basophils 0.1 Retic Count (auto) 1.79 Absolute Retic 0.084 Sodium 141.2 Potassium 3.5 L Chloride 104 Carbon Dioxide 28 Anion Gap 9 BUN < 2 L Creatinine 0.48 L Est GFR ( Amer) > 60 Est GFR (Non-Af Amer) > 60 Glucose 131 H Calcium 8.5 Magnesium 1.8 Iron 38.5 TIBC 251 % Saturation 15 Ferritin 71.10 Vitamin B12 > 1000.0 H Folate > 20.00 Impressions: Abdomen/Pelvis CT 03/20/17 13:13 IMPRESSION: NO SIGNIFICANT CHANGE FROM STUDY PERFORMED EARLIER TODAY INCLUDING DISTAL SMALL BOWEL OBSTRUCTION. Acute Abdomen Series 03/21/17 05:00 IMPRESSION: STABLE RADIOGRAPHIC APPEARANCE CONSISTENT WITH DISTAL SMALL BOWEL OBSTRUCTION. NO FREE AIR. RECOMMEND ADVANCING NASOGASTRIC TUBE 2 TO 3 CM. Abdomen X-Ray 03/27/17 00:00 IMPRESSION: 1. Findings suggest small bowel obstruction. Postoperative ileus considered less likely due to differential air-fluid levels. KUB X-Ray 03/27/17 00:00 IMPRESSION: 1. Enteric tube with the tip in the expected location of the gastric fundus. 2. Persistent gaseous distension of small bowel loops, remains worrisome for distal obstruction. 3. Mild cardiomegaly. Atelectatic changes at the right perihilar region and left lung base. Lung Scan-VQ NM 03/28/17 00:00 IMPRESSION: NORMAL PERFUSION LUNG SCAN. Assessment & Plan - Diagnosis (1) Diabetes mellitus Qualifiers: Diabetes mellitus type: type 2 Diabetes mellitus complication status: without complication Diabetes mellitus director long term care insulin use: unspecified director long term care insulin use status Qualified Code(s): E11.9 - Type 2 diabetes mellitus without complications Is this a current diagnosis for this admission?: Yes Plan: Fairly well controlled ; resume home meds at discharge hemoglobin A1c was 6.7 (3) Hypertension Qualifiers: Hypertension type: essential hypertension Qualified Code(s): I10 - Essential (primary) hypertension Is this a current diagnosis for this admission?: Yes Plan: Medications have been adjusted Toprol-XL has been increased as well as Norvasc (4) Obesity (BMI 30-39.9) Is this a current diagnosis for this admission?: Yes (5) Small bowel obstruction Is this a current diagnosis for this admission?: Yes Plan: Patient underwent surgery she is now asymptomatic Follow-up with general surgeon as an outpatient (6) Anemia Qualifiers: Anemia type: unspecified type Qualified Code(s): D64.9 - Anemia, unspecified Is this a current diagnosis for this admission?: Yes Plan: Anemia of chronic disease Iron folate and vitamin B12 levels were normal - Time Time Spent with patient: Patient may be discharged today Follow up with Dr. Horner in a week for blood pressure check Time Spent with patient: 25-34 minutes
[2017-03-30 14:18] VITALS: BP 166/81
--- NOTE | 2017-03-30 16:41 | PDOC DISCHARGE SUMMARY ---
Discharge Summary (SDC) - Discharge Final Diagnosis: Small bowel obstruction Date of Surgery: 03/21/17 Condition: Stable Treatment or Instructions: Exploratory laparotomy, lysis of adhesions, Dr. Barboza Prescriptions: Amlodipine Besylate [Norvasc 5 mg Tablet] 5 mg PO DAILY #30 tablet Hydrocodone/Acetaminophen [Gladstone 5-325 mg Tablet] 1 tab PO Q4HP PRN #20 PRN Reason: Pain Scale Of 3 Metoprolol Succinate [Toprol Xl 50 mg Tab.sr] 50 mg PO Q12 30 Days #60 tab.sr.24h Referrals: LORENZO BLANC MD [Primary Care Provider] - 04/06/17 10:00 am SAGRARIO CAMP MD [ACTIVE STAFF] - 04/08/17 1:30 pm ALYSSA JIMENEZ MD [ACTIVE STAFF] - 04/09/17 1:00 pm Discharge Activity: Other - May shower. No lifting greater than 20 pounds for 4 weeks. Diet as tolerated Home Care Assistance: None Needed Report the Following to Your Physician Immediately: Shortness of Breath, Nausea , Vomiting, Fever over 101 Degrees, Drainage-Foul Smelling Provider Note Provider Note: Patient is admitted to the hospital. She underwent exporter laparotomy and lysis of adhesions by Dr. Barboza. Post procedure she is done well. She did develop atrial fibrillation with rapid ventricular response while in hospital. Cardiology and the hospitalist medicine service saw the patient. She converted out of atrial fibrillation spontaneously. They started her on metoprolol which resulted in good control of her rate and resulted in improvement in her blood pressure. She is now deemed medically stable for discharge. Discharge medications have been adjusted by the it admin. She is being given a prescription for metoprolol and is to resume her other home antihypertensive medications. She is given a prescription for Gladstone and she will follow-up with the acute care surgery clinic in 1-2 weeks. She has an appointment seen the physician's assistant banquet manager with [facility]. Salvatore will be removed in the clinic.
--- NOTE | 2017-03-31 18:24 | EKG REPORT ---
SEVERITY:- ABNORMAL ECG - SINUS TACHYCARDIA MULTIPLE ATRIAL PREMATURE COMPLEXES NONSPECIFIC T ABNORMALITIES, LATERAL LEADS : Confirmed by: Hugo Garcia MD 31-Mar-2017 18:23:37
--- NOTE | 2017-03-31 18:24 | EKG REPORT ---
SEVERITY:- ABNORMAL ECG - SINUS TACHYCARDIA ATRIAL PREMATURE COMPLEX PROBABLE LVH WITH SECONDARY REPOL ABNRM : Confirmed by: Hugo Garcia MD 31-Mar-2017 18:24:11
== END 2017-03-30 17:40 | disposition home or self-care (01) | DRG 337 ==
LOC: ER 07:15 → EH 15:43 → 4N 16:53 → 3N 03-28 10:36
PROVIDERS: ATTEND Surgery
PROC: 0DNB0ZZ Release Ileum, Open Approach (ICD-10-PCS; principal; 2017-03-21 13:00)
DX: K56.52 Intestinal adhesions [bands] with complete obstruction (principal); I48.91 Unspecified atrial fibrillation; E87.6 Hypokalemia; I10 Essential (primary) hypertension; E11.9 Type 2 diabetes mellitus without complications; D64.9 Anemia, unspecified; F41.9 Anxiety disorder, unspecified; Z79.82 Long term (current) use of aspirin; Z79.899 Other long term (current) drug therapy; Z90.49 Acquired absence of other specified parts of digestive tract; Z90.710 Acquired absence of both cervix and uterus; Z88.0 Allergy status to penicillin
CPT/HCPCS: 36415; 74018; 74019; 74022; 74176; 74177; 78580; 790; 80048; 80053; 81001; 82607; 82728; 82746; 82962; 83036; 83540; 83550; 83690; 83735; 84466; 85025; 85027; 85045; 85610; 86850; 86900; 86901; 93005; 93010; 93042; 93306; 96361; 96374; 96375; 96376; 99285; A9540; J0131; J0330; J0360; J0694; J1650; J1885; J1940; J2060; J2250; J2270; J2370; J2405; J2550; J2704; J3010; J3475; J3480; J3490; J7030; Q9969; S0028; S0119

== ENCOUNTER 2017-04-17 12:17 | Inpatient (IN) | payer BC ==
--- NOTE | 2017-04-17 14:16 | PDOC H&P ---
History of Present Illness Admission Date/PCP: 04/17/17 Patient complains of: draining abdominal wound History of Present Illness: EDDA SIMPSON is a 62 year old female, morbidly obese, s/p laparotomy with KAM for small bowel obstruction 3 weeks ago. She presents with a c/o brown discharge from midline abdominal wound, left lower abdominal wall pain. She denies fever, poor appetite, and reports normal bowel function. Some of the wound misty were removed this past week and minimal clear drainage was noted. Past Medical History Cardiac Medical History: Reports: Hypertension Denies: Coronary Artery Disease, Myocardial Infarction Pulmonary Medical History: Denies: Asthma, Bronchitis, Chronic Obstructive Pulmonary Disease (COPD), Pneumonia Neurological Medical History: Denies: Seizures Endocrine Medical History: Reports: Diabetes Mellitus Type 2 Musculoskeltal Medical History: Denies: Arthritis Psychiatric Medical History: Denies: Depression Hematology: Reports: Anemia - PERNICIOUS ANEMIA Past Surgical History Past Surgical History: Reports: Appendectomy, Cholecystectomy, Hysterectomy, Other - laparotomy with lysis id adhesions Denies: Pacemaker Social History Smoking Status: Current Every Day Smoker Frequency of Alcohol Use: None Hx Recreational Drug Use: No Drugs: None Hx Prescription Drug Abuse: No Family History Family History: Reviewed & Not Pertinent, Hypertension Parental Family History Reviewed: Yes Children Family History Reviewed: Yes Sibling(s) Family History Reviewed.: Yes Medication/Allergy Home Medications: Benazepril/Hydrochlorothiazide [Benazepril-Hctz 20-12.5 mg Tab] 1 each PO DAILY 03/20/17 Saxagliptin HCl/Metformin HCl [Kombiglyze Xr 2.5-1,000 mg Tab] 1 each PO Q12 Acetaminophen [Tylenol 325 mg Tablet] 650 mg PO Q4HP PRN tablet 03/30/17 Amlodipine Besylate [Norvasc 10 mg Tablet] 10 mg PO DAILY tablet 03/30/17 Amlodipine Besylate [Norvasc 5 mg Tablet] 5 mg PO DAILY #30 tablet 03/30/17 Furosemide [Lasix 20 mg Tablet] 20 mg PO DAILY tablet 03/30/17 Hydrocodone/Acetaminophen [Rockwell 5-325 mg Tablet] 1 tab PO Q4HP PRN #20 Metoprolol Succinate [Toprol Xl 50 mg Tab.sr] 50 mg PO Q12 30 Days #60 tab.sr.24h 03/30/17 Potassium Chloride [Kaon-Cl 20 Meq/15 ml Udcup] 20 meq PO Q12 udc 03/30/17 Allergies/Adverse Reactions: Penicillins Adverse Reaction (Intermediate, Verified 04/17/17 12:18) rash Physical Exam Vital Signs: Temp Pulse Resp BP Pulse Ox 98.1 F 73 20 170/77 H 97 04/17/17 12:38 04/17/17 12:38 04/17/17 12:38 04/17/17 12:38 04/17/17 12:38 Intake & Output 04/16/17 04/17/17 04/18/17 06:59 06:59 06:59 Weight 103.1 kg Assessment & Plan - Diagnosis (1) Wound cellulitis after surgery Qualifiers: Encounter type: initial encounter Qualified Code(s): T81.4XXA - Infection following a procedure, initial encounter Is this a current diagnosis for this admission?: Yes - Plan Summary Plan Summary: A/ Abdominal wound infection with drainage Diabetes Obesity P/ Open wound at bedside today Admit start patient on IV abx (Cipro/Flagyl) Cx wound
[2017-04-17] MEDS ORDERED: HYDROMORPHONE HCL INJ/PF 2 MG/ML AMPULE ONE (14:25)
[2017-04-17] MEDS ORDERED: HYDROMORPHONE HCL INJ/PF 2 MG/ML AMPULE IV ONE (14:28)
[2017-04-17] MEDS ORDERED: METRONIDAZOLE 500 MG/NS RTU 100 ML IV ONE (14:30)
[2017-04-17] MEDS ORDERED: NORMAL SALINE 1000 ML 1,000 ML IV ONE ×2 (14:31→15:03)
[2017-04-17] MEDS ORDERED: NORMAL SALINE 500 ML IV ONE (14:31)
--- NOTE | 2017-04-17 14:35 | ER Document Report ---
ED General - General Chief Complaint: Post Surgical Pain Stated Complaint: POST SURGICAL COMPLICATION Time Seen by Provider: 04/17/17 14:28 TRAVEL OUTSIDE OF THE [place] IN LAST 30 DAYS: No COUNTRY TRAVELED TO/FROM: [facility] Patient complains to provider of: Postsurgical pain Notes: Patient coming in for evaluation of his postsurgical abdominal pain. Patient was recently seen had surgery for small bowel obstruction. Patient has been seen by the surgeon and is requesting admission to the ER. I was asked to come and evaluate patient and putting admission orders. Upon my evaluation patient was comfortably - Related Data Allergies/Adverse Reactions: Penicillins Adverse Reaction (Intermediate, Verified 04/17/17 12:18) rash Past Medical History - Social History Smoking Status: Current Every Day Smoker Family History: Reviewed & Not Pertinent, Hypertension - Past Medical History Cardiac Medical History: Reports: Hx Hypertension Denies: Hx Coronary Artery Disease, Hx Heart Attack Pulmonary Medical History: Denies: Hx Asthma, Hx Bronchitis, Hx COPD, Hx Pneumonia Neurological Medical History: Denies: Hx Cerebrovascular Accident, Hx Seizures Endocrine Medical History: Reports: Hx Diabetes Mellitus Type 2 Renal/ Medical History: Denies: Hx Peritoneal Dialysis Musculoskeltal Medical History: Denies Hx Arthritis Psychiatric Medical History: Denies: Hx Depression Past Surgical History: Reports: Hx Appendectomy, Hx Cholecystectomy, Hx Hysterectomy, Other - laparotomy with lysis id adhesions. Denies: Hx Pacemaker - Immunizations Hx Diphtheria, Pertussis, Tetanus Vaccination: Yes Hx Pneumococcal Vaccination: 08/29/14 Review of Systems - Review of Systems Constitutional: No symptoms reported EENT: No symptoms reported Cardiovascular: No symptoms reported Respiratory: No symptoms reported Gastrointestinal: Abdominal pain Genitourinary: No symptoms reported Female Genitourinary: No symptoms reported Musculoskeletal: No symptoms reported Skin: No symptoms reported Hematologic/Lymphatic: No symptoms reported Neurological/Psychological: No symptoms reported -: Yes All other systems reviewed and negative Physical Exam - Vital signs Vitals: Temp Pulse Resp BP Pulse Ox 98.1 F 73 20 170/77 H 97 04/17/17 12:38 04/17/17 12:38 04/17/17 12:38 04/17/17 12:38 04/17/17 12:38 Interpretation: Normal - General General appearance: Appears well, Alert - HEENT Head: Normocephalic, Atraumatic - Respiratory Respiratory status: No respiratory distress - Abdominal Notes: Midline abdominal scar - Back Back: Normal, Nontender - Extremities General upper extremity: Normal inspection General lower extremity: Normal inspection - Neurological Neuro grossly intact: Yes Cognition: Normal Orientation: AAOx4 Sensory: Normal - Psychological Associated symptoms: Normal affect, Normal mood - Skin Skin Temperature: Warm Skin Moisture: Dry Skin Color: Normal Course - Re-evaluation Re-evalutation: 04/17/17 15:37 Patient currently being seen by surgeon requesting Meryl Ventura. Requesting admission to his service so he can follow patient for further evaluation. - Vital Signs Vital signs: Temp Pulse Resp BP Pulse Ox 98.6 F 74 16 185/83 H 95 04/17/17 15:09 04/17/17 15:09 04/17/17 15:09 04/17/17 15:09 04/17/17 15:09 Discharge - Discharge Clinical Impression: Postoperative infection Qualifiers: Encounter type: initial encounter Qualified Code(s): T81.4XXA - Infection following a procedure, initial encounter Condition: Good Disposition: ADMITTED INPATIENT Admitting Provider: Surgicalist - [facility] Unit Admitted: Surgical Floor
[2017-04-17] MEDS ORDERED: ACETAMINOPHEN 325 MG TABLET PO PRN (14:56)
[2017-04-17] MEDS ORDERED: CIPROFLOXACIN 400 MG/D5W RTU 400 MG/200 ML RTUPB IV SCH (15:00)
[2017-04-17 17:00] LABS: ABSOLUTE BASOPHILS # (AUTO) 0.1 10^3/uL (0.0-0.2); ABSOLUTE EOSINOPHILS # (AUTO) 0.4 10^3/uL (0.0-0.6); ABSOLUTE LYMPHOCYTES (AUTO) 1.9 10^3/uL (0.5-4.7); ABSOLUTE MONOCYTES (AUTO) 0.7 10^3/uL (0.1-1.4); ABSOLUTE NEUT (AUTO) 6.2 10^3/uL (1.7-8.2); BASOPHILS % (AUTO) 0.7 % (0-2); EOSINOPHILS % (AUTO) 4.4 % (0-6); HEMATOCRIT 36.5 % (36.0-47.0); HEMOGLOBIN 11.9 g/dL (12.0-15.5); LYMPHOCYTES % (AUTO) 20.2 % (13-45); MEAN CORPUSCULAR HEMOGLOBIN 24.3 pg (27.0-33.4); MEAN CORPUSCULAR HGB CONC 32.5 g/dL (32.0-36.0); MEAN CORPUSCULAR VOLUME 75 fl (80-97); MONOCYTES % (AUTO) 7.3 % (3-13); PLATELET COUNT 352 10^3/uL (150-450); RED BLOOD COUNT 4.87 10^6/uL (3.72-5.28); RED CELL DISTRIBUTION WIDTH 17.4 % (11.5-14.0); SEGMENTED NEUTROPHILS % (AUTO) 67.4 % (42-78); TOTAL CELLS COUNTED % (AUTO) 100 %; WHITE BLOOD COUNT 9.2 10^3/uL (4.0-10.5)
[2017-04-17] MEDS ORDERED: HYDROMORPHONE HCL INJ/PF 2 MG/ML AMPULE IV PRN (17:08)
--- NOTE | 2017-04-17 17:15 | Operative Report ---
Operative Report DATE OF SURGERY: 04/17/17 PREOPERATIVE DIAGNOSIS: infected ABDOMINAL WOUND POSTOPERATIVE DIAGNOSIS: same OPERATION: incision and drainage of abdominal wound SURGEON: BEAN VAZQUEZ ANESTHESIA: Other - Dilaudid TISSUE REMOVED OR ALTERED: n/a COMPLICATIONS: none ESTIMATED BLOOD LOSS: minimal INTRAOPERATIVE FINDINGS: lower abdominal wound red; subcuraneous fluid collection on the left lower aspect PROCEDURE: see dictation
[2017-04-17 17:17] LABS: ANION GAP 11 (5-19); BLOOD UREA NITROGEN 10 mg/dL (7-20); CARBON DIOXIDE 29 mmol/L (22-30); CHLORIDE 104 mmol/L (98-107); GLUCOSE 93 mg/dL (75-110); POTASSIUM 3.6 mmol/L (3.6-5.0); SODIUM 144.3 mmol/L (137-145)
[2017-04-17] MEDS: DOCUSATE SODIUM 100 MG CAPSULE PO SCH (17:44)
[2017-04-17] MEDS ORDERED: CIPROFLOXACIN 400 MG/D5W RTU 400 MG/200 ML RTUPB IV ONE (22:12)
[2017-04-17] MEDS ORDERED: METOPROLOL TARTRATE PF/INJ 5 MG/5 ML SDV IV ONE (22:25)
[2017-04-17] MEDS: CIPROFLOXACIN 400 MG/D5W RTU 400 MG/200 ML RTUPB IV SCH (22:34)
[2017-04-17] MEDS: FAMOTIDINE 20 MG TABLET PO SCH (22:34)
[2017-04-17] MEDS: METRONIDAZOLE RTU 500 MG/NS 100 ML IV SCH (22:35)
[2017-04-18] MEDS: ONDANSETRON HCL INJ/PF 4 MG/2 ML SDV IV PRN ×2 (01:38→13:49)
[2017-04-18] MEDS: METOPROLOL TARTRATE PF/INJ 5 MG/5 ML SDV IV SCH ×2 (03:59→06:11)
[2017-04-18] MEDS: METRONIDAZOLE RTU 500 MG/NS 100 ML IV SCH ×2 (05:47→13:48)
[2017-04-18 06:34] LABS: ABSOLUTE BASOPHILS # (AUTO) 0.1 10^3/uL (0.0-0.2); ABSOLUTE EOSINOPHILS # (AUTO) 0.3 10^3/uL (0.0-0.6); ABSOLUTE LYMPHOCYTES (AUTO) 1.5 10^3/uL (0.5-4.7); ABSOLUTE MONOCYTES (AUTO) 0.6 10^3/uL (0.1-1.4); BASOPHILS % (AUTO) 0.5 % (0-2); EOSINOPHILS % (AUTO) 3.7 % (0-6); HEMATOCRIT 34.8 % (36.0-47.0); HEMOGLOBIN 11.2 g/dL (12.0-15.5); LYMPHOCYTES % (AUTO) 15.3 % (13-45); MEAN CORPUSCULAR HEMOGLOBIN 24.1 pg (27.0-33.4); MEAN CORPUSCULAR HGB CONC 32.1 g/dL (32.0-36.0); MEAN CORPUSCULAR VOLUME 75 fl (80-97); MONOCYTES % (AUTO) 6.6 % (3-13); PLATELET COUNT 319 10^3/uL (150-450); RED BLOOD COUNT 4.63 10^6/uL (3.72-5.28); RED CELL DISTRIBUTION WIDTH 17.3 % (11.5-14.0); SEGMENTED NEUTROPHILS % (AUTO) 73.9 % (42-78); TOTAL CELLS COUNTED % (AUTO) 100 %; WHITE BLOOD COUNT 9.5 10^3/uL (4.0-10.5)
[2017-04-18 07:21] LABS: ANION GAP 10 (5-19); BLOOD UREA NITROGEN 12 mg/dL (7-20); CALCIUM 9.7 mg/dL (8.4-10.2); CARBON DIOXIDE 28 mmol/L (22-30); CHLORIDE 103 mmol/L (98-107); GLUCOSE 147 mg/dL (75-110); POTASSIUM 3.8 mmol/L (3.6-5.0); SODIUM 141.4 mmol/L (137-145)
[2017-04-18] MEDS: METFORMIN HCL 500 MG TABLET PO SCH ×2 (07:43→17:05)
[2017-04-18] MEDS: HYDROCHLOROTHIAZIDE 25 MG TABLET PO SCH (10:37)
[2017-04-18] MEDS: DOCUSATE SODIUM 100 MG CAPSULE PO SCH ×2 (10:38→17:06)
[2017-04-18] MEDS: AMLODIPINE BESYLATE 5 MG TABLET PO SCH (10:38)
[2017-04-18] MEDS: FAMOTIDINE 20 MG TABLET PO SCH ×2 (10:38→21:40)
[2017-04-18] MEDS: METOPROLOL SUCCINATE 25 MG TAB.SR.24H PO SCH ×2 (10:39→21:40)
[2017-04-18] MEDS: BENAZEPRIL HCL 20 MG TABLET PO SCH (10:40)
[2017-04-18] MEDS: ENOXAPARIN SODIUM INJ 40 MG/0.4 ML DISP.SYRIN SUBCUT SCH (10:41)
[2017-04-18] MEDS: SITAGLIPTIN PHOSPHATE 50 MG TABLET PO SCH (10:49)
[2017-04-18] MEDS: CIPROFLOXACIN 400 MG/D5W RTU 400 MG/200 ML RTUPB IV SCH ×2 (11:32→21:39)
--- NOTE | 2017-04-18 11:50 | PDOC PROGRESS REPORT ---
Subjective Progress Note for:: 04/18/17 Subjective:: comfortable, reports mid pain left lower abdomen Reason For Visit: INFECTED ABDOMINAL WOUND Physical Exam Vital Signs: Temp Pulse Resp BP Pulse Ox 98.6 F 73 18 159/80 H 99 04/18/17 08:34 04/18/17 08:34 04/18/17 04:36 04/18/17 08:34 04/18/17 08:34 Intake & Output 04/17/17 04/18/17 04/19/17 06:59 06:59 06:59 Intake Total 110 Balance 110 Weight 101.7 kg GI/Abdominal exam: PRESENT: other - wound pink, no dainage, no odor, minimally tender Results Laboratory Results: 04/18/17 06:15 04/18/17 06:15 04/17/17 04/17/17 04/18/17 16:20 16:20 06:15 WBC 9.2 9.5 RBC 4.87 4.63 Hgb 11.9 L 11.2 L Hct 36.5 34.8 L MCV 75 L 75 L MCH 24.3 L 24.1 L MCHC 32.5 32.1 RDW 17.4 H 17.3 H Plt Count 352 319 Seg Neutrophils % 67.4 73.9 Lymphocytes % 20.2 15.3 Monocytes % 7.3 6.6 Eosinophils % 4.4 3.7 Basophils % 0.7 0.5 Absolute Neutrophils 6.2 7.0 Absolute Lymphocytes 1.9 1.5 Absolute Monocytes 0.7 0.6 Absolute Eosinophils 0.4 0.3 Absolute Basophils 0.1 0.1 Sodium 144.3 Potassium 3.6 Chloride 104 Carbon Dioxide 29 Anion Gap 11 BUN 10 Creatinine 0.58 Est GFR ( Amer) > 60 Est GFR (Non-Af Amer) > 60 Glucose 93 Calcium 10.0 04/18/17 06:15 WBC RBC Hgb Hct MCV MCH MCHC RDW Plt Count Seg Neutrophils % Lymphocytes % Monocytes % Eosinophils % Basophils % Absolute Neutrophils Absolute Lymphocytes Absolute Monocytes Absolute Eosinophils Absolute Basophils Sodium 141.4 Potassium 3.8 Chloride 103 Carbon Dioxide 28 Anion Gap 10 BUN 12 Creatinine 0.59 Est GFR ( Amer) > 60 Est GFR (Non-Af Amer) > 60 Glucose 147 H Calcium 9.7 Assessment & Plan - Diagnosis (1) Wound cellulitis after surgery Qualifiers: Encounter type: initial encounter Qualified Code(s): T81.4XXA - Infection following a procedure, initial encounter Is this a current diagnosis for this admission?: Yes - Plan Summary Plan Summary: A/ POD#1 after I&D abdominal wound WBC normal Wound cx significatn for gram negative rods P/ HL IVF Continue IV antibiotics BID dressing changes NS wet-to-dry
[2017-04-18] MEDS ORDERED: TRAMADOL HCL 50 MG TABLET PO PRN (11:56)
[2017-04-18] MEDS: HYDROMORPHONE HCL INJ/PF 2 MG/ML AMPULE IV PRN (13:49)
[2017-04-19] MEDS: METRONIDAZOLE RTU 500 MG/NS 100 ML IV SCH ×4 (00:14→22:18)
[2017-04-19] MEDS: HYDROMORPHONE HCL INJ/PF 2 MG/ML AMPULE IV PRN ×2 (05:46→18:37)
[2017-04-19] MEDS: ONDANSETRON HCL INJ/PF 4 MG/2 ML SDV IV PRN (05:56)
[2017-04-19] MEDS: METFORMIN HCL 500 MG TABLET PO SCH ×2 (08:18→17:18)
[2017-04-19] MEDS: BENAZEPRIL HCL 20 MG TABLET PO SCH (09:54)
[2017-04-19] MEDS: METOPROLOL SUCCINATE 25 MG TAB.SR.24H PO SCH ×2 (09:55→22:17)
[2017-04-19] MEDS: FAMOTIDINE 20 MG TABLET PO SCH ×2 (09:55→22:18)
[2017-04-19] MEDS: AMLODIPINE BESYLATE 5 MG TABLET PO SCH (09:55)
[2017-04-19] MEDS: DOCUSATE SODIUM 100 MG CAPSULE PO SCH ×2 (09:55→17:18)
[2017-04-19] MEDS: CIPROFLOXACIN 400 MG/D5W RTU 400 MG/200 ML RTUPB IV SCH ×2 (09:56→20:18)
[2017-04-19] MEDS: ENOXAPARIN SODIUM INJ 40 MG/0.4 ML DISP.SYRIN SUBCUT SCH (09:59)
[2017-04-19] MEDS: HYDROCHLOROTHIAZIDE 25 MG TABLET PO SCH (09:59)
[2017-04-19] MEDS: SITAGLIPTIN PHOSPHATE 50 MG TABLET PO SCH (10:01)
--- NOTE | 2017-04-19 10:57 | PDOC PROGRESS REPORT ---
Subjective Progress Note for:: 04/19/17 Reason For Visit: INFECTED ABDOMINAL WOUND Patient states she feels better, ambulating, tolerating a diet, no nausea or vomiting. Pain controlled with oral agents particularly during wound packing. Physical Exam Vital Signs: Temp Pulse Resp BP Pulse Ox 97.7 F 70 18 161/67 H 97 04/19/17 08:43 04/19/17 08:43 04/19/17 08:43 04/19/17 08:43 04/19/17 08:43 Intake & Output 04/18/17 04/19/17 04/20/17 06:59 06:59 06:59 Intake Total 110 1200 Balance 110 1200 Weight 101.7 kg 104.4 kg General appearance: PRESENT: no acute distress, other - Sitting in chair GI/Abdominal exam: PRESENT: other - Abdomen soft nontender; wound dressing dry intact; packing just replaced prior to my rounds Results Laboratory Results: 04/18/17 06:15 04/18/17 06:15 Assessment & Plan - Diagnosis (1) Superficial incisional infection of surgical site Qualifiers: Encounter type: subsequent encounter Qualified Code(s): T81.4XXD - Infection following a procedure, subsequent encounter Is this a current diagnosis for this admission?: Yes Plan: Patient is one day status post debridement of inferior aspect midline wound following laparotomy for weeks ago, with drainage packing; Sepsis controlled; wound cultures growing gram-positive cocci, Proteus mirabilis ; on Zosyn and Flagyl intravenously with appropriate improvement in leukocytosis , hemodynamic metrics. Commendations: 1. Continue intravenous antibiotics today; dressing changes in shower today. Just getting patient a surgical scrub brush or brush for this deep wound. 2. Anticipate discharge home tomorrow if continues to improve
--- NOTE | 2017-04-19 13:38 | OPERATIVE REPORT E ---
Operative Report NAME: EDDA SIMPSON : 1955 AGE: 62Y DATE OF SURGERY: 04/17/2017 ROOM: 208 PREOPERATIVE DIAGNOSIS: Midline surgical abdominal wound infection. POSTOPERATIVE DIAGNOSIS: Midline surgical abdominal wound infection. PROCEDURE: Incision and drainage of midline surgical abdominal wound. SURGEON: BEAN VAZQUEZ M.D. MANAGER BENEFIT: None. BLEEDING: None. COMPLICATIONS: None. ANESTHESIA: 0.5 mg IV of Dilaudid. INDICATION AND FINDINGS: This is a morbidly obese 62-year-old female who, a few weeks ago, underwent a laparotomy with lysis of adhesions for a complete small bowel obstruction. The procedure was uneventful. The patient was discharged home 2 weeks ago. She was seen in the clinic last week and a few misty were removed. A small amount of purulent drainage was noted from the wound. The patient returns to the emergency room today complaining of additional drainage from the wound. A decision was made to perform incision and drainage of the midline abdominal wound, lower aspect. DESCRIPTION OF PROCEDURE: The procedure was done in the emergency room at bedside. The patient was placed in supine position. The abdominal wound was painted Betadine. The patient was given 0.5 mg IV push of Dilaudid. Following this, the lower portion of the wound was opened with scissors and a moderate amount of purulent drainage was obtained. This was sent for culture, aerobic, anaerobic, and Gram stain. The remaining part of the wound was opened for about an inch and a half in length and a finger was inserted inside the wound and it was spread down to fascia, which was found to be intact. Bridges of tssue were taken down. The wound appeared to extend also subcutaneously on the left side, where the patient complained of increased pain and a small subcutaneous cavity was noted. The wound was irrigated with 500 mL of normal saline. After this, the wound was packed with half-strength Betadine soaked sponges. Sterile dressings were applied with tape. The patient tolerated the procedure well. DICTATING PHYSICIAN: BEAN VAZQUEZ M.D. [id number] PHY#: [id number] ID: [id number] JOB#: [id number] ACCT: [id number] cc:BEAN VAZQUEZ M.D. > [facility]
--- NOTE | 2017-04-19 13:50 | Physician Advisory Note ---
Physician Advisor ProgressNote .: [facility], I have reviewed the medical record for this patient. Physician Advisor Statement: Please consider documenting, if you agree: 1. Medical necessity: "Pt needed to stay in hospital for continued IV abx & clinical monitoring on 04/18 & 04/19 BECAUSE " (?"infection response not yet sufficiently improved"? "WE WERE CONCERNED about "? ...) 2. Please document whether: A. "possible sepsis was ruled out", vs. B. "possible sepsis, present on admission, due to ____, evidenced by __" Status: Pt w/post-op wound infection requiring IV abx for 2 nights so far in hospital & attending expects at least 1 night more, following cx, continuing IV abx. Appropriate for Inpt status with documentation of #1 above. Thanks! CK
[2017-04-20] MEDS: METRONIDAZOLE RTU 500 MG/NS 100 ML IV SCH (05:45)
[2017-04-20] MEDS: HYDROMORPHONE HCL INJ/PF 2 MG/ML AMPULE IV PRN (05:47)
[2017-04-20] MEDS: ONDANSETRON HCL INJ/PF 4 MG/2 ML SDV IV PRN (05:47)
[2017-04-20] MEDS: DOCUSATE SODIUM 100 MG CAPSULE PO SCH ×2 (09:08→18:46)
[2017-04-20] MEDS: HYDROCHLOROTHIAZIDE 25 MG TABLET PO SCH (09:08)
[2017-04-20] MEDS: AMLODIPINE BESYLATE 5 MG TABLET PO SCH (09:08)
[2017-04-20] MEDS: METOPROLOL SUCCINATE 25 MG TAB.SR.24H PO SCH ×2 (09:09→23:10)
[2017-04-20] MEDS: BENAZEPRIL HCL 20 MG TABLET PO SCH (09:09)
[2017-04-20] MEDS: ENOXAPARIN SODIUM INJ 40 MG/0.4 ML DISP.SYRIN SUBCUT SCH (09:09)
[2017-04-20] MEDS: FAMOTIDINE 20 MG TABLET PO SCH ×2 (09:09→23:10)
[2017-04-20] MEDS: CIPROFLOXACIN 400 MG/D5W RTU 400 MG/200 ML RTUPB IV SCH (09:14)
[2017-04-20] MEDS: SITAGLIPTIN PHOSPHATE 50 MG TABLET PO SCH (09:15)
[2017-04-20] MEDS: METFORMIN HCL 500 MG TABLET PO SCH ×2 (09:15→18:47)
[2017-04-20] MEDS ORDERED: VANCOMYCIN HCL 1,500 MG in DEXTROSE 5%-WATER 250 ML IV ONE (11:30)
[2017-04-20] MEDS ORDERED: METRONIDAZOLE 500 MG TABLET PO ONE (16:00)
[2017-04-20] MEDS ORDERED: METOPROLOL TARTRATE PF/INJ 5 MG/5 ML SDV IV PRN (17:41)
--- NOTE | 2017-04-20 17:45 | PDOC CONSULTATION ---
Consultation Consult Date: 04/20/17 Attending physician:: BEAN VAZQUEZ Consult reason:: Hypertension History of Present Illness Admission Date/PCP: 04/17/17 14:42 LORENZO BLANC MD Patient complains of: elevated blood pressure, post-op pain, and constipation History of Present Illness: EDDA SIMPSON is a 62 year old female, morbidly obese, s/p laparotomy with KAM for small bowel obstruction 3 weeks ago. She presents with a c/o brown discharge from midline abdominal wound, left lower abdominal wall pain. She denies fever, poor appetite, and reports normal bowel function. Some of the wound msity were removed this past week and minimal clear drainage was noted. She is s/p I&D by surgery on 04/17. Post op continues to have pain. Due to fear of worsening constipation, she has not been asking for pain medications. States that last BM was on Wednesday. Denies vision changes, GONZALEZ, lightheadness, dizziness, NV. NO other complaints at this time. Past Medical History Cardiac Medical History: Reports: Hypertension Denies: Coronary Artery Disease, Myocardial Infarction Pulmonary Medical History: Denies: Asthma, Bronchitis, Chronic Obstructive Pulmonary Disease (COPD), Pneumonia Neurological Medical History: Denies: Seizures Endocrine Medical History: Reports: Diabetes Mellitus Type 2 Musculoskeltal Medical History: Denies: Arthritis Psychiatric Medical History: Denies: Depression Hematology: Reports: Anemia - PERNICIOUS ANEMIA Past Surgical History Past Surgical History: Reports: Appendectomy, Cholecystectomy, Hysterectomy, Other - laparotomy with lysis id adhesions Denies: Pacemaker Social History Information Source: Patient Smoking Status: Never Smoker Frequency of Alcohol Use: None Hx Recreational Drug Use: No Drugs: None Hx Prescription Drug Abuse: No - Advance Directive Resuscitation Status: Full Code Family History Family History: Reviewed & Not Pertinent, Hypertension Parental Family History Reviewed: No Children Family History Reviewed: NA Sibling(s) Family History Reviewed.: NA Medication/Allergy Home Medications: Amlodipine Besylate [Norvasc 5 mg Tablet] 5 mg PO DAILY 04/17/17 Benazepril/Hydrochlorothiazide [Benazepril-Hctz 20-12.5 mg Tab] 1 each PO DAILY 04/17/17 Metoprolol Succinate [Toprol Xl 25 mg Tab.sr] 25 mg PO Q12 04/17/17 Saxagliptin HCl/Metformin HCl [Kombiglyze Xr 2.5-1,000 mg Tab] 1 each PO Q12 Aspirin [Aspirin 81 mg Chewable Tablet] 81 mg PO DAILY 04/18/17 Allergies/Adverse Reactions: Penicillins Adverse Reaction (Intermediate, Verified 04/17/17 12:18) rash Physical Exam Vital Signs: Temp Pulse Resp BP Pulse Ox 98.2 F 80 16 180/89 H 93 04/20/17 16:19 04/20/17 16:19 04/20/17 16:19 04/20/17 16:19 04/20/17 16:19 Intake & Output 04/19/17 04/20/17 04/21/17 06:59 06:59 06:59 Intake Total 1200 830 Balance 1200 830 Weight 104.4 kg 107.1 kg Results Laboratory Results: 04/18/17 06:15 04/18/17 06:15 Assessment & Plan - Diagnosis (1) Hypertension Qualifiers: Hypertension type: essential hypertension Qualified Code(s): I10 - Essential (primary) hypertension Is this a current diagnosis for this admission?: Yes Plan: Patient has known history of HTN and on appropriate anti-hypertensive regimen. Her BP more recently has been elevated and is likely multifactorial due to poor pain control, fear of constipation, and need for increased doses of BP medications. - Advised patient to take pain medications as poorly controlled pain is contributing to elevated BPs. Has both Tramadol and Dilaudid ordered. Could consider adding low dose Oxycodone 5mg q4-6 hours PRN if patient desires - Currently on Toprol XL 25mg, amlodipine 5mg, and Benazepril 20mg daily. Will add Lopressor 5mg IV q6 hours PRN SBP>160 for now. After better pain control is achieved, can increase Toprol XL 50mg daily if still required. (2) Constipation Qualifiers: Constipation type: drug induced constipation Qualified Code(s): K59.03 - Drug induced constipation Is this a current diagnosis for this admission?: Yes Plan: Has not had BM since Wednesday. Likely due to recent abdominal surgery and pain medications. - Currently on colace only. - Will add miralax * 1 dose now, if NO BM in am, would schedule daily or consider enema (3) Abdominal pain Qualifiers: Abdominal location: epigastric Qualified Code(s): R10.13 - Epigastric pain Is this a current diagnosis for this admission?: Yes Plan: Due to recent surgery. - Will defer management to surgical team - Would consider repeat imaging if not improved with better pain management. - Time Time Spent: 30 to 50 Minutes Anticipated discharge: Home with Homehealth
[2017-04-20] MEDS ORDERED: POLYETHYLENE GLYCOL 3350 POWDER 17 GM/1 PACKET PO ONE ×2 (18:15→20:00)
--- NOTE | 2017-04-20 18:44 | PDOC PROGRESS REPORT ---
Subjective Progress Note for:: 04/20/17 Subjective:: Patient still c/o left lower abdominal discomfort by surgical incision Reason For Visit: ABDOMINAL WOUND CELLULITIS Physical Exam Vital Signs: Temp Pulse Resp BP Pulse Ox 98.2 F 80 16 180/89 H 93 04/20/17 16:19 04/20/17 16:19 04/20/17 16:19 04/20/17 16:19 04/20/17 16:19 General appearance: PRESENT: no acute distress GI/Abdominal exam: PRESENT: soft, other - open midline wound: granulating, minimal clear drainage, no odor, not tender Assessment & Plan - Diagnosis (1) Wound cellulitis after surgery Qualifiers: Encounter type: initial encounter Qualified Code(s): T81.4XXA - Infection following a procedure, initial encounter Is this a current diagnosis for this admission?: Yes - Plan Summary Plan Summary: A/ POD #3 after I&D abdominal wound secondary to abscess formation VSS, AF Wound Cx sigificant for enterococcus fecalis and MRSA patient on Cipro, Flagyl, Vanco woiund appearance improved, granulating P/ D/C Cipro/Flagyl based on cx results Continue Vancomycin Colace/Miralax for constipation
[2017-04-20] MEDS ORDERED: DOCUSATE SODIUM 100 MG CAPSULE PO SCH (19:00)
[2017-04-20] MEDS ORDERED: CIPROFLOXACIN HCL 500 MG TABLET PO SCH (22:00)
[2017-04-20] MEDS ORDERED: METRONIDAZOLE 500 MG TABLET PO SCH (22:00)
[2017-04-20] MEDS: VANCOMYCIN HCL 1,500 MG in DEXTROSE 5%-WATER 250 ML IV SCH (23:11)
[2017-04-21] MEDS: HYDROMORPHONE HCL INJ/PF 2 MG/ML AMPULE IV PRN (06:31)
[2017-04-21] MEDS: ONDANSETRON HCL INJ/PF 4 MG/2 ML SDV IV PRN (06:34)
[2017-04-21 08:09] LABS: HEMATOCRIT 35.7 % (36.0-47.0); HEMOGLOBIN 11.6 g/dL (12.0-15.5); MEAN CORPUSCULAR HEMOGLOBIN 24.1 pg (27.0-33.4); MEAN CORPUSCULAR HGB CONC 32.5 g/dL (32.0-36.0); MEAN CORPUSCULAR VOLUME 74 fl (80-97); PLATELET COUNT 326 10^3/uL (150-450); RED BLOOD COUNT 4.81 10^6/uL (3.72-5.28); RED CELL DISTRIBUTION WIDTH 17.1 % (11.5-14.0); WHITE BLOOD COUNT 8.2 10^3/uL (4.0-10.5)
[2017-04-21 08:25] LABS: ANION GAP 12 (5-19); BLOOD UREA NITROGEN 10 mg/dL (7-20); CALCIUM 9.4 mg/dL (8.4-10.2); CARBON DIOXIDE 26 mmol/L (22-30); CHLORIDE 103 mmol/L (98-107); GLUCOSE 130 mg/dL (75-110); POTASSIUM 3.7 mmol/L (3.6-5.0); SODIUM 140.5 mmol/L (137-145)
[2017-04-21] MEDS ORDERED: BISACODYL 10 MG SUPP.RECT PR ONE ×2 (08:30→13:00)
[2017-04-21] MEDS ORDERED: POLYETHYLENE GLYCOL 3350 POWDER 17 GM/1 PACKET PO SCH (10:00)
--- NOTE | 2017-04-21 10:07 | PDOC PROGRESS REPORT ---
Subjective Progress Note for:: 04/21/17 Subjective:: patient comfortable Reason For Visit: ABDOMINAL WOUND CELLULITIS Physical Exam Vital Signs: Temp Pulse Resp BP Pulse Ox 98.2 F 78 15 148/88 H 96 04/21/17 07:56 04/21/17 07:56 04/21/17 07:56 04/21/17 07:56 04/21/17 07:56 Intake & Output 04/20/17 04/21/17 04/22/17 06:59 06:59 06:59 Weight 109.9 kg General appearance: PRESENT: no acute distress GI/Abdominal exam: PRESENT: other - abdominal wound skin is soft, non tenderness , no cellulitis, no drainage or odor Results Laboratory Results: 04/21/17 07:24 04/21/17 07:24 04/21/17 04/21/17 07:24 07:24 WBC 8.2 RBC 4.81 Hgb 11.6 L Hct 35.7 L MCV 74 L MCH 24.1 L MCHC 32.5 RDW 17.1 H Plt Count 326 Sodium 140.5 Potassium 3.7 Chloride 103 Carbon Dioxide 26 Anion Gap 12 BUN 10 Creatinine 0.51 L Est GFR ( Amer) > 60 Est GFR (Non-Af Amer) > 60 Glucose 130 H Calcium 9.4 Assessment & Plan - Diagnosis (1) Wound cellulitis after surgery Qualifiers: Encounter type: initial encounter Qualified Code(s): T81.4XXA - Infection following a procedure, initial encounter Is this a current diagnosis for this admission?: Yes - Plan Summary Plan Summary: A/ S/P I&D surgical abdominal wound POD#3 Patient comfortable VSS WBC normal Abdominal wound clean, granulating, no pain P/ Continue Vanco for MRSA and Enterococcus grown form wound abscess Fleet enema and Magnesium Citrate today Discharge tomorrow
[2017-04-21] MEDS ORDERED: NA PHOS,M-B/NA PHOS,DI-BA (ADULT) 133 ML ENEMA PR ONE (11:00)
[2017-04-21] MEDS ORDERED: MAGNESIUM CITRATE 296 ML BOTTLE PO ONE ×2 (11:30→13:00)
--- NOTE | 2017-04-21 11:59 | PDOC PROGRESS REPORT ---
Subjective Progress Note for:: 04/21/17 Subjective:: The patient is a 62-year-old female with morbid obesity, status post laparotomy with KAM for small bowel obstruction 3 weeks ago. She was admitted to the surgical service on 04/17/17 for laparotomy site infection and is now postop day 3 surgical I&D. Wound cultures are positive for MRSA. The hospitalist service was consulted for management of hypertension. The patient is seen on morning rounds. She is initially seen ambulating in the hallways without difficulty. She states that she is feeling much better today. She reports continued fatigue, however, her abdominal discomfort and wound drainage have decreased significantly. She does report continued constipation but endorses flatus. She is hopeful to be discharged to home tomorrow. Her only other question at this time is that arrangements for home health nursing to assist with wound care be arranged. Reason For Visit: ABDOMINAL WOUND CELLULITIS Physical Exam Vital Signs: Temp Pulse Resp BP Pulse Ox 98.2 F 78 15 148/88 H 96 04/21/17 07:56 04/21/17 07:56 04/21/17 07:56 04/21/17 07:56 04/21/17 07:56 Intake & Output 04/20/17 04/21/17 04/22/17 06:59 06:59 06:59 Weight 109.9 kg General appearance: PRESENT: no acute distress, morbidly obese, well-developed, well-nourished Head exam: PRESENT: atraumatic, normocephalic Eye exam: PRESENT: conjunctiva pink, EOMI, PERRLA. ABSENT: scleral icterus Ear exam: PRESENT: normal external ear exam Mouth exam: PRESENT: moist, tongue midline Neck exam: ABSENT: carotid bruit, JVD, lymphadenopathy, thyromegaly Respiratory exam: PRESENT: clear to auscultation jovani, symmetrical, unlabored. ABSENT: rales, rhonchi, wheezes Cardiovascular exam: PRESENT: RRR, +S1, +S2. ABSENT: diastolic murmur, rubs, systolic murmur Pulses: PRESENT: normal dorsalis pedis pul Vascular exam: PRESENT: normal capillary refill GI/Abdominal exam: PRESENT: normal bowel sounds, soft, tenderness, other - Surgical site not visualized; dressing in place.. ABSENT: distended, guarding, mass, organolmegaly, rebound Rectal exam: PRESENT: deferred Extremities exam: PRESENT: full ROM. ABSENT: calf tenderness, clubbing, pedal edema Neurological exam: PRESENT: alert, awake, oriented to person, oriented to place , oriented to time, oriented to situation, CN II-XII grossly intact. ABSENT: motor sensory deficit Psychiatric exam: PRESENT: appropriate affect, normal mood. ABSENT: homicidal ideation, suicidal ideation Skin exam: PRESENT: dry, warm. ABSENT: cyanosis, intact - Status post I&D to the abdomen, rash Results Laboratory Results: 04/21/17 07:24 04/21/17 07:24 04/21/17 04/21/17 07:24 07:24 WBC 8.2 RBC 4.81 Hgb 11.6 L Hct 35.7 L MCV 74 L MCH 24.1 L MCHC 32.5 RDW 17.1 H Plt Count 326 Sodium 140.5 Potassium 3.7 Chloride 103 Carbon Dioxide 26 Anion Gap 12 BUN 10 Creatinine 0.51 L Est GFR ( Amer) > 60 Est GFR (Non-Af Amer) > 60 Glucose 130 H Calcium 9.4 Assessment & Plan - Diagnosis (1) Hypertension Qualifiers: Hypertension type: essential hypertension Qualified Code(s): I10 - Essential (primary) hypertension Is this a current diagnosis for this admission?: Yes Plan: The patient has a known history of hypertension and is on appropriate antihypertensive regimen. Her blood pressures most recently have been elevated; likely multifactorial due to poor pain control, fear of constipation, and need for increased dose of blood pressure medications. Blood pressure is noted to be acceptable today. Continue Toprol-XL 25 mg, amlodipine 5 mg, and benazepril 20 mg daily; 148/88 Lopressor 5 mg IV every 6 hours as needed SBP greater than 160. (2) Constipation Qualifiers: Constipation type: drug induced constipation Qualified Code(s): K59.03 - Drug induced constipation Is this a current diagnosis for this admission?: Yes Plan: Primary plan per surgery; the patient is currently on scheduled Lasix twice daily, MiraLAX daily. We will try a fleets enema and mag citrate today per surgery's recommendations for (3) Abdominal pain Qualifiers: Abdominal location: epigastric Qualified Code(s): R10.13 - Epigastric pain Is this a current diagnosis for this admission?: Yes Plan: Secondary to recent surgery. Pain appears to be well-controlled with Tylenol and tramadol as needed. We will defer pain management to surgical team. (4) Anemia Qualifiers: Anemia type: B12 deficiency Is this a current diagnosis for this admission?: Yes Plan: Secondary to history of pernicious anemia. Patient states that she was scheduled to receive her vitamin B12 injection today. Will provide Vitamin B -12 1,000 mcg IM today. (5) Diabetes mellitus Qualifiers: Diabetes mellitus type: type 2 Diabetes mellitus complication status: without complication Is this a current diagnosis for this admission?: Yes Plan: The patient is on a consistent carb diet. Continue metformin 1000 mg p.o. twice daily. Continue Januvia 100 mg p.o. daily. - Time Time Spent with patient: 15-24 minutes Medications reviewed and adjusted accordingly: Yes Anticipated discharge: Home Within: within 24 hours
[2017-04-21] MEDS: FAMOTIDINE 20 MG TABLET PO SCH ×2 (12:03→21:52)
[2017-04-21] MEDS: AMLODIPINE BESYLATE 5 MG TABLET PO SCH (12:03)
[2017-04-21] MEDS: HYDROCHLOROTHIAZIDE 25 MG TABLET PO SCH (12:04)
[2017-04-21] MEDS: DOCUSATE SODIUM 100 MG CAPSULE PO SCH ×2 (12:04→17:59)
[2017-04-21] MEDS: POLYETHYLENE GLYCOL 3350 POWDER 17 GM/1 PACKET PO SCH ×2 (12:05→17:59)
[2017-04-21] MEDS: METOPROLOL SUCCINATE 25 MG TAB.SR.24H PO SCH ×2 (12:07→21:56)
[2017-04-21] MEDS: BENAZEPRIL HCL 20 MG TABLET PO SCH (12:08)
[2017-04-21] MEDS: ENOXAPARIN SODIUM INJ 40 MG/0.4 ML DISP.SYRIN SUBCUT SCH (12:08)
[2017-04-21] MEDS: VANCOMYCIN HCL 1,500 MG in DEXTROSE 5%-WATER 250 ML IV SCH ×2 (12:12→21:52)
[2017-04-21] MEDS: SITAGLIPTIN PHOSPHATE 50 MG TABLET PO SCH (12:13)
[2017-04-21] MEDS: METFORMIN HCL 500 MG TABLET PO SCH ×2 (12:13→16:11)
[2017-04-21] MEDS ORDERED: CYANOCOBALAMIN (VITAMIN B-12) INJ 1000 MCG/1 ML VIAL IM ONE (13:00)
[2017-04-21] MEDS ORDERED: HYDRALAZINE HCL INJ/PF 20 MG/1 ML SDV IV PRN (20:15)
[2017-04-21] MEDS ORDERED: AMLODIPINE BESYLATE 5 MG TABLET PO SCH (22:00)
[2017-04-21 22:19] LABS: VANCOMYCIN,TROUGH 11.9 ug/mL (5.0-20.0)
[2017-04-22] MEDS: METFORMIN HCL 500 MG TABLET PO SCH (08:07)
[2017-04-22] MEDS: HYDROCHLOROTHIAZIDE 25 MG TABLET PO SCH (09:32)
[2017-04-22] MEDS: METOPROLOL SUCCINATE 25 MG TAB.SR.24H PO SCH (09:32)
[2017-04-22] MEDS: FAMOTIDINE 20 MG TABLET PO SCH (09:32)
[2017-04-22] MEDS: ENOXAPARIN SODIUM INJ 40 MG/0.4 ML DISP.SYRIN SUBCUT SCH (09:32)
[2017-04-22] MEDS: DOCUSATE SODIUM 100 MG CAPSULE PO SCH (09:32)
[2017-04-22] MEDS: BENAZEPRIL HCL 20 MG TABLET PO SCH (09:32)
[2017-04-22] MEDS: POLYETHYLENE GLYCOL 3350 POWDER 17 GM/1 PACKET PO SCH (09:34)
[2017-04-22] MEDS: SITAGLIPTIN PHOSPHATE 50 MG TABLET PO SCH (09:34)
[2017-04-22] MEDS ORDERED: MAGNESIUM CITRATE 296 ML BOTTLE PO SCH (10:00)
[2017-04-22] MEDS: VANCOMYCIN HCL 1,500 MG in DEXTROSE 5%-WATER 250 ML IV SCH (11:29)
--- NOTE | 2017-04-22 14:03 | PDOC PROGRESS REPORT ---
Subjective Progress Note for:: 04/22/17 Subjective:: comfortable Reason For Visit: ABDOMINAL WOUND CELLULITIS Physical Exam Vital Signs: Temp Pulse Resp BP Pulse Ox 97.4 F 77 18 168/74 H 100 04/22/17 11:12 04/22/17 11:12 04/22/17 11:12 04/22/17 11:12 04/22/17 11:12 Intake & Output 04/21/17 04/22/17 04/23/17 06:59 06:59 06:59 Intake Total 900 Balance 900 Weight 109.9 kg 106.9 kg General appearance: PRESENT: no acute distress, well-developed, well-nourished Head exam: PRESENT: atraumatic, normocephalic Eye exam: PRESENT: conjunctiva pink, EOMI, PERRLA. ABSENT: scleral icterus Ear exam: PRESENT: normal external ear exam Mouth exam: PRESENT: moist, tongue midline Neck exam: ABSENT: carotid bruit, JVD, lymphadenopathy, thyromegaly Respiratory exam: PRESENT: clear to auscultation jovani. ABSENT: rales, rhonchi, wheezes Cardiovascular exam: PRESENT: RRR. ABSENT: diastolic murmur, rubs, systolic murmur Pulses: PRESENT: normal dorsalis pedis pul Vascular exam: PRESENT: normal capillary refill GI/Abdominal exam: PRESENT: normal bowel sounds, soft, other - wound gtramulating, no drainage, no odor. ABSENT: distended, guarding, mass, organolmegaly, rebound, tenderness Rectal exam: PRESENT: deferred Extremities exam: PRESENT: full ROM. ABSENT: calf tenderness, clubbing, pedal edema Neurological exam: PRESENT: alert, awake, oriented to person, oriented to place , oriented to time, oriented to situation, CN II-XII grossly intact. ABSENT: motor sensory deficit Psychiatric exam: PRESENT: appropriate affect, normal mood. ABSENT: homicidal ideation, suicidal ideation Skin exam: PRESENT: dry, intact, warm. ABSENT: cyanosis, rash Results Laboratory Results: 04/21/17 07:24 04/21/17 21:35 04/21/17 21:35 Creatinine 0.60 Est GFR ( Amer) > 60 Est GFR (Non-Af Amer) > 60 Assessment & Plan - Diagnosis (1) Wound cellulitis after surgery Qualifiers: Encounter type: initial encounter Qualified Code(s): T81.4XXA - Infection following a procedure, initial encounter Is this a current diagnosis for this admission?: Yes - Plan Summary Plan Summary: A/ S/P I&D infected abdominal wound MRSA growing, on Vanco x 2 days Wound appearance improved P/ D/C to home today NS wet-to-dry dressing change BID F/U with general Surgery clinic in 2 weks Bactrim DS 1 tab po bid resume activities no weight lifiting more that 10# x 3 months
[2017-04-22 14:24] VITALS: BP 152/77
--- NOTE | 2017-04-22 14:43 | DISCHARGE SUMMARY E ---
Discharge Summary NAME: EDDA SIMPSON : 1955 AGE: 62Y ADMITTED: 04/20/2017 DISCHARGED: 04/22/2017 PREOPERATIVE DIAGNOSIS: Infected abdominal wound with MRSA. PROCEDURE: Incision and drainage of abdominal wound on 04/17/2017. COMPLICATIONS: None. HOSPITAL COURSE: This is a morbidly obese, diabetic 62-year-old female who, 3 weeks ago, underwent a laparotomy for lysis of adhesions. Subsequently, she was discharged home in satisfactory condition. She presented back to the hospital on 04/17/2017 with the lower portion of the abdominal wound draining and tender. The wound was completely opened in the emergency room at bedside. Cultures were taken. The patient was started on broad spectrum antibiotics; later the wound culture was positive for MRSA and enterococcus and she was started on vancomycin. The patient received vancomycin for about 48 hours with improvement of the appearance of the wound. On the day of discharge, the patient had stable vital signs. She had no complaints. The abdominal wound appeared to be well healing. The wound appeared to be clean and granulating. DISCHARGE ORDERS: The patient was discharged to home on 04/22. She was given a 2-week course of Bactrim Double Strength 1 tablet p.o. b.i.d. She was instructed to continue with dressing changes with normal saline twice a day. She was instructed to return to the Surgery office in 2 weeks, continue her medications, perform no straining or lifting and no lifting more than 10 pounds for about 2 months. DICTATING PHYSICIAN: BEAN VAZQUEZ M.D. [id number] PHY#: [id number] ID: [id number] JOB#: [id number] ACCT: [id number] cc:Randolph EDDY M.D. [facility], > [facility]
--- NOTE | 2017-04-22 17:43 | PROGRESS NOTE E ---
Progress Note NAME: EDDA SIMPSON : 1955 AGE: 62Y DATE: 04/22/2017 ROOM: 208 SUBJECTIVE: The patient is to be discharged by the primary team. The patient has had no reported episodes of vomiting or diarrhea. Overall, the patient continues to improve. The patient's blood pressures have been in a good range, and the patient does not voice any other concerns. REVIEW OF SYSTEMS: Rest of review of systems is negative. MEDICATIONS: Medications have been reviewed. OBJECTIVE: GENERAL: The patient is a 62-year-old female who is awake, alert. She is oriented to person, place, time, and situation. Verbal conversation does not appear to distressed. VITAL SIGNS FOLLOWS: Temperature is 97.4. Pulse 77. Respirations 18. Blood pressure is 152/77. Oxygen saturation 100% on room air. SKIN: Warm and dry. No rash. She is not diaphoretic. HEENT: Pupils are reactive. There is no evidence of JVP. Mucous membranes appear moist. CARDIOVASCULAR: Heart is regular. CHEST: Symmetrical, unlabored. ABDOMEN: Nondistended. EXTREMITIES: No clubbing, cyanosis, or edema. PSYCHIATRIC: Appropriate affect. DIAGNOSTICS: Lab values are as follows: Hematology obtained on 04/21/2017: WBC 8.2, hemoglobin 12.6, hematocrit 35.7, platelet count 326,000. Chemistry obtained on 04/21/2017: Glucose was 124. IMPRESSION AND PLAN: 1. HYPERTENSION. The patient does have poorly controlled hypertension. Will send an additional Norvasc prescription over the patient's pharmacy and follow. 2. CONSTIPATION. The patient has received an enema. 3. ABDOMINAL PAIN SECONDARY TO RECENT SURGERY. Pain appears to be well controlled at this time. 4. B12 DEFICIENCY ANEMIA. This was supplemented during the patient's stay. 5. DIABETES MELLITUS TYPE 2. Continue her medications as well as diet. DISPOSITION: PATIENT IS A FULL CODE. Pending the patient's symptomatology and diagnostic findings, we will reevaluate as needed. The patient can be discharged from a medical standpoint. If the patient indeed is not discharged, please feel free to contact the hospitalist should further management be warranted. Time spent on this followup including review of records is 15 minutes. DICTATING PHYSICIAN: FARRAH TIM NP [id number] Y#: [id number] ID: [id number] JOB#: [id number] ACCT: [id number] cc: >
== END 2017-04-22 17:58 | disposition home or self-care (01) | DRG 863 ==
LOC: ER 12:17 → EH 14:42 → INTOOBSV 14:42 → 2N 15:43 → OBSVTOIN 04-20 16:50
PROVIDERS: ADMIT Surgery; ATTEND Surgery
PROC: 0J983ZX Drainage of Abdomen Subcutaneous Tissue and Fascia, Percutaneous Approach, Diagnostic (ICD-10-PCS; principal; 2017-04-17)
DX: T81.4XXA Infection following a procedure, initial encounter (principal); L03.311 Cellulitis of abdominal wall; B96.4 Proteus (mirabilis) (morganii) as the cause of diseases classified elsewhere; B95.62 Methicillin resistant Staphylococcus aureus infection as the cause of diseases classified elsewhere; B95.2 Enterococcus as the cause of diseases classified elsewhere; I10 Essential (primary) hypertension; E66.01 Morbid (severe) obesity due to excess calories; Z68.38 Body mass index [BMI] 38.0-38.9, adult; E11.9 Type 2 diabetes mellitus without complications; D51.0 Vitamin B12 deficiency anemia due to intrinsic factor deficiency; K59.03 Drug induced constipation; F17.210 Nicotine dependence, cigarettes, uncomplicated; Z90.49 Acquired absence of other specified parts of digestive tract; Z90.710 Acquired absence of both cervix and uterus; Z79.899 Other long term (current) drug therapy; Z88.0 Allergy status to penicillin; Z82.49 Family history of ischemic heart disease and other diseases of the circulatory system
CPT/HCPCS: 36415; 80048; 80202; 82565; 82962; 85025; 85027; 87040; 87070; 87075; 87077; 87186; 87205; 96374; 99284; J0360; J0744; J1170; J1650; J2405; J3370; J3420; J3490; J7030; J7040; J7060

== ENCOUNTER 2017-08-25 21:28 | Emergency (ER) | payer BC ==
--- NOTE | 2017-08-25 22:04 | RADIOLOGY REPORT (SQ) ---
EXAM DESCRIPTION: HAND RIGHT 3 VIEWS COMPLETED DATE/TIME: 08/25/2017 9:48 pm REASON FOR STUDY: injury COMPARISON: None. EXAM PARAMETERS: NUMBER OF VIEWS: Three views. TECHNIQUE: AP, lateral and oblique radiographic images acquired of the right hand. LIMITATIONS: None. FINDINGS: MINERALIZATION: Normal. BONES: No acute fracture or dislocation. No worrisome bone lesions. JOINTS: Mild degenerative joint changes in the distal interphalangeal joints. SOFT TISSUES: No soft tissue swelling. No foreign body. OTHER: No other significant finding. IMPRESSION: Mild degenerative joint disease. No acute osseous abnormality. TECHNICAL DOCUMENTATION: JOB ID: [id number] [employer]- All Rights Reserved Reading location - IP/workstation name: [email or web address]
[2017-08-25] MEDS ORDERED: HYDROCODONE/ACETAMINOPHEN 5-325 MG TABLET PO ONE (23:47)
[2017-08-25] MEDS ORDERED: HYDROCODONE/ACETAMINOPHEN 5-325 MG (6 TAB/ER DISP) PO PRN (23:47)
--- NOTE | 2017-08-25 23:53 | ER Document Report ---
ED General - General Chief Complaint: Hand Injury Stated Complaint: FALL/RIGHT HAND INJURY Time Seen by Provider: 08/25/17 23:42 Notes: Patient is a pleasant 62-year-old female who fell onto her right hand when she fell the right hand hyperextended back. She has bruising over the palmar aspect of her hand and says that it is very painful to try to flex her fingers. She denies any other injuries. No pain to her elbow or shoulder. She denies hitting her head. No other complaints at this time. TRAVEL OUTSIDE OF THE [place] IN LAST 30 DAYS: No COUNTRY TRAVELED TO/FROM: [place] - Related Data Allergies/Adverse Reactions: Penicillins Adverse Reaction (Intermediate, Verified 04/17/17 12:18) rash Past Medical History - Social History Smoking Status: Never Smoker Frequency of alcohol use: None Drug Abuse: None Family History: Reviewed & Not Pertinent, Hypertension Patient has suicidal ideation: No Patient has homicidal ideation: No - Past Medical History Cardiac Medical History: Reports: Hx Hypertension Denies: Hx Coronary Artery Disease, Hx Heart Attack Pulmonary Medical History: Denies: Hx Asthma, Hx Bronchitis, Hx COPD, Hx Pneumonia Neurological Medical History: Denies: Hx Cerebrovascular Accident, Hx Seizures Endocrine Medical History: Reports: Hx Diabetes Mellitus Type 2 Renal/ Medical History: Denies: Hx Peritoneal Dialysis Musculoskeltal Medical History: Denies Hx Arthritis Psychiatric Medical History: Denies: Hx Depression Past Surgical History: Reports: Hx Appendectomy, Hx Cholecystectomy, Hx Hysterectomy, Other - laparotomy with lysis id adhesions. Denies: Hx Pacemaker - Immunizations Hx Diphtheria, Pertussis, Tetanus Vaccination: Yes Hx Pneumococcal Vaccination: 08/29/14 Review of Systems - Review of Systems Notes: My Normal Review Basic REVIEW OF SYSTEMS: CONSTITUTIONAL : Denies fever, chills, or sweats. Denies recent illness. MUSCULOSKELETAL: pain over right hand SKIN: Denies rash or skin lesions. NEUROLOGICAL: Denies sensory or motor loss. ALL OTHER SYSTEMS REVIEWED AND NEGATIVE. Physical Exam - Notes Notes: General Appearance: Well nourished, alert, cooperative, no acute distress, moderate obvious discomfort. Vitals: reviewed, See vital signs table. Head: no swelling or tenderness to the head Eyes: PERRL, EOMI, Conjuctiva clear Extremities: She has some bruising to the palmar aspect of the right hand. She is keeping her fingers in a slightly flexed position. I am able to hold each finger and have her flex it. She is able flex up as a pain in doing so and therefore will not flex any of her fingers fully into a full fist. She is able to move her thumb without difficulty. Distal sensation is intact in all fingers. No scaphoid tenderness. Skin: warm, dry, appropriate color, no rash Neuro: speech clear, oriented x 3, normal affect, responds appropriately to questions. Course - Re-evaluation Re-evalutation: 08/25/17 23:50 Patient does not have any obvious full thickness tenderness tear of her hand however she may have a partial tendon injury of the flexor tendon of her right hand being she has a lot of bruising over the palmar aspect of her hand and she is unable to fully flex the fingers all the way. Suspect this will likely be more due to pain and a contusion to the hand itself however being that the patient is only able to partially flex fingers I will place her in a volar splint and have her follow-up with the hand surgeon, Dr. Pedersen. Explained with plan to the patient and she is agreeable to it. Dictation of this chart was performed using voice recognition software; therefore, there may be some unintended grammatical errors. 08/26/17 00:52 Initial volar splint placed by tech was not appropriate and did not come up underneath the fingers. I therefore removed and placed a volar splint using 4 inch plaster. Splint was molded to position of comfort of finger slightly flexed. Patient tolerated procedure well without complications. Dictation of this chart was performed using voice recognition software; therefore, there may be some unintended grammatical errors. Procedures - Immobilization Right Hand Pre-Proc Neuro Vasc Exam: Normal Immobilizer type: Volar splint Performed by: Provider Post-Proc Neuro Vasc Exam: Normal Discharge - Discharge Clinical Impression: Hand pain, right Condition: Good Disposition: HOME, SELF-CARE Instructions: Oral Narcotic Medication ([facility]) Additional Instructions: You can loosen the Silver wrap on the splint if you feel it is becoming too tight. Please follow-up with the hand surgeon, Dr. Pedersen, within a week. Please call his office in the morning to make a close follow-up appointment. Please return to the ER if you have worsening pain, numbness into your hand, or if you have any further concerns. Do not picker / packer anything or lift anything with your right hand until cleared by the hand surgeon. Referrals: NIR PEDERSEN, [ACTIVE STAFF] - Follow up in 3-5 days
[2017-08-26 01:04] VITALS: BP 180/84
== END 2017-08-26 01:04 | disposition home or self-care (01) ==
LOC: ER 21:28
PROC: 2W3CX1Z Immobilization of Right Lower Arm using Splint (ICD-10-PCS; principal; 2017-08-25)
DX: S60.221A Contusion of right hand, initial encounter (principal); M79.641 Pain in right hand; W19.XXXA Unspecified fall, initial encounter; I10 Essential (primary) hypertension; E11.9 Type 2 diabetes mellitus without complications
CPT/HCPCS: 99283

== ENCOUNTER 2018-02-16 11:17 | Day surgery (SDC) | payer BC ==
[2018-02-16] MEDS ORDERED: FENTANYL CITRATE INJ/PF 100 MCG/2 ML AMPUL ONE (12:29)
[2018-02-16] MEDS ORDERED: PROPOFOL INJ 200 MG/20 ML VIAL IV ONE (12:29)
[2018-02-16] MEDS ORDERED: PROMETHAZINE HCL INJ 25 MG/1 ML VIAL IV PRN ×2 (13:03)
[2018-02-16] MEDS ORDERED: DIPHENHYDRAMINE HCL 50 MG/ML VIAL IV PRN (13:03)
[2018-02-16] MEDS ORDERED: MEPERIDINE HCL/PF INJ 25 MG/1 ML DISP.SYRIN IV PRN (13:03)
[2018-02-16] MEDS ORDERED: ONDANSETRON HCL INJ/PF 4 MG/2 ML SDV ONE (13:38)
[2018-02-16] MEDS ORDERED: DEXAMETHASONE SOD PHOSPHATE INJ 4 MG/1 ML VIAL ONE (13:38)
[2018-02-16 14:55] VITALS: BP 160/77
--- NOTE | 2018-02-16 16:30 | Operative Report ---
Operative Report DATE OF SURGERY: 02/16/18 Operative Report: The risks, benefits and alternatives of the procedure including the risks of bleeding, perforation requiring surgery are explained to the patient in detail and informed consent is obtained. The patient is taken to the operating room and placed in the left, lateral decubital position. Timeout was called. Propofol medication is administered. A rectal examination is done which did not reveal any masses, tears or fissures. An Olympus videoscope was introduced into the patient's rectum. The scope was then carefully advanced all the way to the cecum. The cecum was identified by the usual anatomical landmarks including the ileocecal valve as well as the appendiceal office. Photodocumentation is obtained. The scope was then sequentially pulled back via the various segments of the colon including the ascending colon, hepatic flexure, transverse colon, splenic flexure, descending colon and finally into the rectosigmoid portions of the colon. Retroflexion maneuver is performed. 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 Personal history of colon polyps POSTOPERATIVE DIAGNOSIS: Several small polyps noted in the stomach more of an inflammatory type polyp but biopsies obtained to rule out for carcinoid. Ascending colon polyp that is removed and retrieved. Transverse colon polyp OPERATION: Colonoscopy with snare polypectomy. EGD with biopsy SURGEON: TRUMAN ROTH ANESTHESIA: LMAC TISSUE REMOVED OR ALTERED: As noted above. COMPLICATIONS: None. ESTIMATED BLOOD LOSS: None. INTRAOPERATIVE FINDINGS: As noted above. PROCEDURE: Patient tolerated the procedure well. No immediate postprocedure complications are noted. Patient discharged in good condition. Discharge date 02/16/2018. Discharge diet: Regular. Discharge activity: Regular. 2-3-week follow-up to discuss findings. wait on the pathology. 3-5-year surveillance colonoscopy. Patient is instructed to call the office or proceed to the emergency room should there be any further problems or questions.
== END 2018-02-16 14:50 | disposition home or self-care (01) ==
LOC: OROUT 11:17
PROVIDERS: ATTEND Internal Medicine Gastroenterology
DX: Z12.11 Encounter for screening for malignant neoplasm of colon (principal); K31.7 Polyp of stomach and duodenum; K63.5 Polyp of colon; Z87.19 Personal history of other diseases of the digestive system; I10 Essential (primary) hypertension; E11.9 Type 2 diabetes mellitus without complications
CPT/HCPCS: 43239; 45385; 82962; 88342 ×2; 88305 ×2; J1100; J3010; J2405; J2704; 813